=== PATIENT | female | born 1960 | race American Indian/Alaskan Native ===

== ENCOUNTER 2017-11-18 17:08 | Inpatient (IN) | payer BC ==
[2017-11-18 17:08] VITALS: BMI 20.1
--- NOTE | 2017-11-18 19:00 | C.PDOC ---
History Of Present Illness 57 year old female, whose PMHx includes pancreatitis, presents to the ED for evaluation of a swelling and discoloration to her right eye which she noted upon waking up this morning. Patient states she looked in the mirror and saw a big ecchymotic pointing lesion that was slightly draining. Patient admits to drinking, but states she does not drink every day and her last alcohol intake was yesterday. Additionally, patient states she has been feeling unwell, has not been eating much and has had loss of appetite for the past few weeks. As per her family, patient has not been eating well and has been losing a lot of weight. Patient denies fever, chills, eye pain, vision change, injury/trauma to the area, recent falls, or history of Diabetes. Time Seen by Provider: 11/18/17 18:23 Chief Complaint (Nursing): Abnormal Skin Integrity History Per: Patient History/Exam Limitations: no limitations Onset/Duration Of Symptoms: Days Current Symptoms Are (Timing): Still Present Quality Of Symptoms: Draining Additional History Per: Patient Past Medical History Reviewed: Historical Data, Nursing Documentation, Vital Signs Vital Signs: Last Vital Signs Temp 99 F 11/18/17 17:36 Pulse 102 H 11/18/17 17:36 Resp 20 11/18/17 17:36 BP 180/87 H 11/18/17 17:36 Pulse Ox 98 11/18/17 19:39 - Medical History PMH: Pancreatitis Surgical History: No Surg Hx - [facility] Procedures URETERAL CATHETERIZATION (10/08/13) Family History: States: No Known Family Hx - Social History Hx Tobacco Use: Yes Hx Alcohol Use: Yes Hx Substance Use: No - Immunization History Hx Tetanus Toxoid Vaccination: No Hx Influenza Vaccination: No Review Of Systems Constitutional: Positive for: Weight loss, Other (loss of appetite). Negative for: Fever, Chills Eyes: Positive for: Other (swelling and discoloration to right eye ). Negative for: Pain, Vision Change Physical Exam - Physical Exam Appears: Non-toxic, No Acute Distress, Other (thin appearing female ) Skin: Warm, Dry, Ecchymosis (marked, to right periorbital region) Head: Swelling (marked, to right periorbital region ) Eye(s): bilateral: PERRL, EOMI, right: Other (pointing abcess immediately below eyebrow ) Nose: Normal Oral Mucosa: Dry, Other (ketotic odor noted on breath ) Throat: Normal, No Erythema, No Exudate Neck: Supple Lymphatic: No Adenopathy Chest: Symmetrical, No Deformity, No Tenderness Cardiovascular: Rhythm Regular, No Murmur Respiratory: Normal Breath Sounds, No Rales, No Rhonchi, No Wheezing Extremity: Normal ROM, Capillary Refill (less than 2 seconds ) Neurological/Psych: Oriented x3, Normal Speech, Normal Cognition Gait: Steady ED Course And Treatment - Laboratory Results Result Diagrams: 11/18/17 19:34 11/18/17 19:34 Lab Interpretation: Abnormal (Elevated WBC with left shift, low platelet ct 98, na 127, HCO3 16, glucose 148, +serum ketones) O2 Sat by Pulse Oximetry: 98 (on RA) Pulse Ox Interpretation: Normal - CT Scan/US CT orbits with contrast Other Rad Studies (CT/US): Read By Radiologist, Radiology Report Reviewed CT/US Interpretation: Accession No. : [id number]. Patient Name / ID : ABBE AGUIRRE / [id number]. Exam Date : 11/18/2017 21:33:06 ( Approved ). Study Comment : Sex / Age : F / 57Y. Creator : Luiz Barksdale MD. Dictator : Compliance Lead : Haircutter : Luiz Barksdale MD. Approver2 : Report Date : 01/2018 22:05:00. My Comment : . [facility] Division of Radiology. [address] [place] [address]. Tel. no. . . . Patient Name: CARLA MCADAMS . Pt. Address: [address] [place] [address] Rec #: [id number]. [place] [address]: Sarah HILLS,Kathleen Freeman. Pt Order Location: [facility] : 1960 Female Age: 57 Order #: [id number]. Reason for exam: right periorbital abscess. . . . . . CT Scan. . . ORBITS/ FACIALS W/ CONT Exam Date: 11/18/17. . This imaging exam was performed at [facility]. EXAM: CT Orbits With Intravenous Contrast. . CLINICAL HISTORY: 57 years old, female; Condition or disease; Abcess; Eye and face; Right;. Additional info: Right periorbital abscess. . TECHNIQUE: Axial computed tomography images of the orbits with intravenous contrast. All CT scans at this facility use one or more dose reduction techniques, viz.: automated exposure control; ma/kV adjustment per patient size (including. targeted exams where dose is matched to indication; i.e. head); or iterative. reconstruction technique. Coronal and sagittal reformatted images were created and reviewed. . CONTRAST: 100 mL of omnipaque 300 administered intravenously. . COMPARISON: No relevant prior studies available. . FINDINGS: Orbits: Unremarkable as visualized. Sinuses: Scattered minimal mucosal thickening. No air-fluid levels. Mastoid air cells: No mastoid effusion. Thyroid: Subcentimeter calcification/ calcified nodule within right lobe. Bones/joints: Degenerative changes of cervical spine. No acute fracture. Chronic deformity medial wall of RIGHT orbit. Soft tissues: RIGHT periorbital/maxillary soft tissue swelling. 2.1 x 1.8 x. 1.6 cm soft tissue lesion along right periorbital region. Vasculature: Minimal atherosclerotic disease. Other findings: 2.6 x 1.6 x 3.2 cm subdermal fluid density lesion right. neck, incompletely imaged. Clinical correlation is needed. . IMPRESSION: 1. Probable right periorbital/ maxillary cellulitis. 2. Right periorbital lesion, nonspecific. DDX: Phlegmon , hematoma, neoplasm. Clinical correlation is needed. 3. Right neck lesion, nonspecific. DDX: Cyst, abscess, cystic neoplasm. Clinical correlation is needed. 4. Incidental/non-acute findings are described above. . Dictated By : Luiz Barksdale MD. Dictated Date/Time: 11/18/172204. Signed By: Luiz Barksdale MD. Date Signed: 11/18/172204. Transcribed By: [facility]. Transcribe Date/Time: 11/18/17 2205. ACYP02/MT Progress Note: Bloodwork, UA, CT Orbitals/Facial ordered and reviewed. Dextrose IV adminsitered. Reevaluation Time: 22:36 Reassessment Condition: Unchanged - Physician Consult Information Time Consulting Physician Contacted: 22:36 Physician Contacted: Lisseth Corbin Outcome Of Conversation: Patient to be admitted to his service for treatment of periorbital cellulitis. Disposition - Disposition Disposition: HOSPITALIZED Disposition Time: 22:37 Condition: FAIR - POA Present On Arrival: None - Clinical Impression Clinical Impression: Periorbital cellulitis of right eye - Scribe Statement The provider has reviewed the documentation as recorded by the Scribe Teodora Walker All medical record entries made by the [place] were at my direction and personally dictated by me. I have reviewed the chart and agree that the record accurately reflects my personal performance of the history, physical exam, medical decision making, and the department course for this patient. I have also personally directed, reviewed, and agree with the discharge instructions and disposition.
[2017-11-18] MEDS ORDERED: Dextrose 5%/0.9% NS 1,000 ML IV ONE (19:07)
[2017-11-18] MEDS ORDERED: Iohexol 350mg/ml 100 ML ONE (19:14)
[2017-11-18 19:39] LABS: EOS % 0.3 % (0.0-4.0); MEAN CORPUSCULAR HGB CONC 34.1 g/dL (33.0-37.0); MONO # 1.4 K/uL (0.0-0.8)
[2017-11-18 19:46] LABS: SQUAMOUS EPITHIAL 2 /hpf (0-5); URINE BACTERIA RARE (<OCC); URINE BILIRUBIN NEGATIVE (NEGATIVE); URINE BLOOD 2+ (NEGATIVE); URINE CLARITY Clear (Clear); URINE COLOR Yellow (YELLOW); URINE GLUCOSE (UA) 3+ mg/dL (Normal); URINE LEUKOCYTE ESTERASE NEG Leu/uL (Negative); URINE NITRATE NEGATIVE (NEGATIVE); URINE PROTEIN 1+ mg/dL (NEGATIVE)
[2017-11-18 19:47] LABS: BASO % 0.3 % (0.0-2.0); LYMPH % 9.1 % (20.0-40.0); MEAN CORPUSCULAR HEMOGLOBIN 34.7 pg (27.0-31.0); MONO % 12.5 % (0.0-10.0); NEUT # 8.8 K/uL (1.8-7.0); NEUT % 77.8 % (50.0-75.0); NRBC % 0.2 % (0.0-2.0); RBC 3.39 Mil/uL (3.80-5.20); RED CELL DISTRIBUTION WIDTH 17.1 % (11.5-14.5); WHITE BLOOD COUNT 11.3 K/uL (4.8-10.8)
[2017-11-18 19:48] LABS: HEMOGLOBIN 11.8 g/dL (11.0-16.0); MEAN CELL VOLUME 101.8 fL (81.0-99.0); PLATELET COUNT 98 K/uL (130-400)
[2017-11-18 19:56] LABS: ALB/GLOB RATIO 1.2 (1.0-2.1); ALBUMIN 4.1 g/dL (3.5-5.0); ALT/SGPT 85 U/L (9-52); AST/SGOT 132 U/L (14-36); BLOOD UREA NITROGEN 9 mg/dL (7-17); CALCIUM 8.1 mg/dl (8.6-10.4); GFR AFRICAN-AMERICAN > 60; GFR NON-AFRICAN AMERICAN > 60; MAGNESIUM 1.2 mg/dL (1.6-2.3)
[2017-11-18 20:35] LABS: ANISOCYTOSIS SLIGHT; BANDS 8 % (0-2); EOSINOPHIL 1 % (0-4); LYMPHOCYTE 16 % (20-40); MONOCYTE 6 % (0-10); NEUTROPHIL 69 % (50-75); PLATELET ESTIMATE NORMAL (NORMAL); TARGET CELLS SLIGHT; TOTAL CELLS COUNTED 100
--- NOTE | 2017-11-18 22:06 | CT ---
EXAM: CT Orbits With Intravenous Contrast CLINICAL HISTORY: 57 years old, female; Condition or disease; Abcess; Eye and face; Right; Additional info: Right periorbital abscess TECHNIQUE: Axial computed tomography images of the orbits with intravenous contrast. All CT scans at this facility use one or more dose reduction techniques, viz.: automated exposure control; ma/kV adjustment per patient size (including targeted exams where dose is matched to indication; i.e. head); or iterative reconstruction technique. Coronal and sagittal reformatted images were created and reviewed. CONTRAST: 100 mL of omnipaque 300 administered intravenously. COMPARISON: No relevant prior studies available. FINDINGS: Orbits: Unremarkable as visualized. Sinuses: Scattered minimal mucosal thickening. No air-fluid levels. Mastoid air cells: No mastoid effusion. Thyroid: Subcentimeter calcification/calcified nodule within right lobe. Bones/joints: Degenerative changes of cervical spine. No acute fracture. Chronic deformity medial wall of RIGHT orbit. Soft tissues: RIGHT periorbital/maxillary soft tissue swelling. 2.1 x 1.8 x 1.6 cm soft tissue lesion along right periorbital region. Vasculature: Minimal atherosclerotic disease. Other findings: 2.6 x 1.6 x 3.2 cm subdermal fluid density lesion right neck, incompletely imaged. Clinical correlation is needed. IMPRESSION: 1. Probable right periorbital/maxillary cellulitis. 2. Right periorbital lesion, nonspecific. DDX: Phlegmon, hematoma, neoplasm. Clinical correlation is needed. 3. Right neck lesion, nonspecific. DDX: Cyst, abscess, cystic neoplasm. Clinical correlation is needed. 4. Incidental/non-acute findings are described above.
[2017-11-18] MEDS ORDERED: Sodium Chloride 0.45% 1,000 ML IV SCH (23:30)
[2017-11-18] MEDS ORDERED: Sodium Chloride 0.9% 500 ML IV ONE (23:32)
[2017-11-19] MEDS: Sodium Chloride 0.9% 1,000 ML IV SCH ×5 (00:32→19:50)
[2017-11-19] MEDS: Magnesium Sulfate 1 gm in D5W 1 GM/100 ML BAG IVPB SCH ×4 (00:34→23:34)
[2017-11-19] MEDS: Piperacill/Tazo 4.5gm in Dex 4.5 GM/100 ML BAG IVPB SCH ×5 (02:08→22:53)
[2017-11-19] MEDS ORDERED: Enoxaparin 40 mg Syringe SC SCH (10:00)
[2017-11-19 12:48] LABS: ALB/GLOB RATIO 1.1 (1.0-2.1); ALBUMIN 3.2 g/dL (3.5-5.0); ALT/SGPT 83 U/L (9-52); AST/SGOT 174 U/L (14-36); BLOOD UREA NITROGEN 3 mg/dL (7-17); CALCIUM 7.7 mg/dl (8.6-10.4); GFR AFRICAN-AMERICAN > 60; GFR NON-AFRICAN AMERICAN > 60
[2017-11-19] MEDS ORDERED: Potassium Chloride 20 mEq ER Tab PO STA (13:00)
--- NOTE | 2017-11-19 13:44 | CON ---
DATE: REQUESTING PHYSICIAN: . REASON FOR CONSULTATION: Neck mass and eyelid abscess. HISTORY: This is a 57-year-old female who has had edema of the right eyelid for one day, was sudden onset, it is constant with some moderate pain. There are no visual changes. The patient also complains of a right neck mass which has been there for 38 years, is constant. Has not changed in size. There is no pain. It is moderate in size. PAST MEDICAL HISTORY: As noted in the chart by me. MEDICATIONS: As noted in the chart by me. ALLERGIES: NO KNOWN DRUG ALLERGIES. PHYSICAL EXAMINATION HEAD: Atraumatic, normocephalic. There is edema of the right lateral upper eyelid. FACE: Good facial movements bilaterally. CONSTITUTIONAL: Well fed, well nourished. COMMUNICATION: Communicates well and appropriately. EXTERNAL NOSE AND EARS: No masses. No lesions. No erythema. No edema. INTERNAL NOSE: Deviated septum. No masses. No lesions. No erythema. No edema. ORAL CAVITY AND OROPHARYNX: No masses. No lesions. No erythema. No edema. LIPS AND GUMS: No masses. No lesions. No erythema. No edema. NECK: Supple. There is a neck mass on the right level 3/5. LYMPH NODES: No lymphadenopathy of the neck. THYROID: No thyromegaly. No goiter. LABORATORY DATA: The CAT scan which was reviewed by me revealed right upper eyelid and a neck mass on the right level 3/5. The neck mass is cystic. ASSESSMENT: 1. Right neck cyst. 2. Eyelid abscess. 3. Deviated septum. PLAN: The eyelid abscess should be assessed by ophthalmology. The patient states that she has had this right neck mass for 38 years and has no interest in removing it. My recommendation is to call ophthalmology in order to address the right eyelid abscess. Blaine Sanz MD
[2017-11-19 17:15] LABS: MAGNESIUM 1.5 mg/dL (1.6-2.3)
--- NOTE | 2017-11-19 21:29 | CP.PCM.HP ---
History of Present Illness - History of Present Illness History of Present Illness: 57 year old female, whose PMHx includes pancreatitis, presents to the ED for evaluation of a swelling and discoloration to her right eye which she noted upon waking up this morning. Patient states she looked in the mirror and saw a big ecchymotic pointing lesion that was slightly draining. Patient admits to drinking, but states she does not drink every day and her last alcohol intake was yesterday. Additionally, patient states she has been feeling unwell, has not been eating much and has had loss of appetite for the past few weeks. As per her family, patient has not been eating well and has been losing a lot of weight. Patient denies fever, chills, eye pain, vision change, injury/trauma to the area, recent falls, or history of Diabetes. Present on Admission - Present on Admission Any Indicators Present on Admission: No History of DVT/PE: No History of Uncontrolled Diabetes: No Urinary Catheter: No Decubitus Ulcer Present: No Review of Systems - Review of Systems All systems: reviewed and no additional remarkable complaints except (as mentioned in HPI) Past Patient History - Past Social History Smoking Status: Light Smoker < 10 Cigarettes Daily - MUSCULOSKELETAL/RHEUMATOLOGICAL Hx Falls: No - GASTROINTESTINAL Hx Pancreatitis: Yes - PSYCHIATRIC Hx Substance Use: No - SURGICAL HISTORY Hx Surgeries: No - ANESTHESIA Hx Anesthesia: Yes Meds Allergies/Adverse Reactions: Allergies Allergy/AdvReac Type Severity Reaction Status Date / Time No Known Allergies Allergy Verified 10/08/13 21:47 Physical Exam - Head Exam Head Exam: NORMAL INSPECTION - Eye Exam Eye Exam: Normal appearance, Periorbital swelling (Right eye swelling) - ENT Exam ENT Exam: Mucous Membranes Moist Results - Vital Signs Recent Vital Signs: Last Vital Signs Temp 99.1 F 11/19/17 15:45 Pulse 95 H 11/19/17 15:45 Resp 20 11/19/17 15:45 BP 139/89 11/19/17 15:45 Pulse Ox 95 11/19/17 15:45 - Labs Result Diagrams: 11/21/17 07:20 11/24/17 07:21 Labs: Laboratory Results - last 24 hr 11/19/17 12:03 Sodium 128 L Potassium 2.8 L Chloride 93 L Carbon Dioxide 24 Anion Gap 13 BUN 3 L Creatinine 0.3 L Est GFR ( Amer) > 60 Est GFR (Non-Af Amer) > 60 Random Glucose 199 H Calcium 7.7 L Magnesium 1.5 L Total Bilirubin 3.4 H AST 174 H D ALT 83 H Alkaline Phosphatase 101 Total Protein 6.0 L Albumin 3.2 L D Globulin 2.8 Albumin/Globulin Ratio 1.1 Assessment & Plan - Assessment and Plan (Free Text) Assessment: Right eye abscess Right eye cellulitis Electrolyte imbalance History of alcohol abuse ENT evaluation Antibiotics Wound culture ID consult Supplement potassium Supplement magnesium Thiamine supplementation IV fluids DVT/GI prophylaxis
[2017-11-19] MEDS ORDERED: Vancomycin 1 gm/NS 200 ml 1 GM/200 ML BAG IVPB SCH (22:00)
[2017-11-20] MEDS: Magnesium Sulfate 1 gm in D5W 1 GM/100 ML BAG IVPB SCH (01:01)
[2017-11-20] MEDS: Vancomycin 1 gm/NS 200 ml 1 GM/200 ML BAG IVPB SCH ×2 (02:06→13:53)
[2017-11-20] MEDS: Sodium Chloride 0.9% 1,000 ML IV SCH ×3 (02:06→19:14)
[2017-11-20] MEDS: Piperacill/Tazo 4.5gm in Dex 4.5 GM/100 ML BAG IVPB SCH ×3 (04:42→16:39)
[2017-11-20 07:39] LABS: BASO % 0.7 % (0.0-2.0); EOS # 0.1 K/uL (0.0-0.7); EOS % 1.4 % (0.0-4.0); HEMOGLOBIN 10.9 g/dL (11.0-16.0); LYMPH # 1.4 K/uL (1.0-4.3); LYMPH % 20.4 % (20.0-40.0); MEAN CELL VOLUME 102.3 fL (81.0-99.0); MEAN CORPUSCULAR HEMOGLOBIN 35.9 pg (27.0-31.0); MEAN CORPUSCULAR HGB CONC 35.1 g/dL (33.0-37.0); MEAN PLATELET VOLUME 7.8 fL (7.2-11.7); MONO # 1.4 K/uL (0.0-0.8); MONO % 21.7 % (0.0-10.0); NEUT # 3.7 K/uL (1.8-7.0); NEUT % 55.8 % (50.0-75.0); NRBC % 0.2 % (0.0-2.0); RBC 3.03 Mil/uL (3.80-5.20); WHITE BLOOD COUNT 6.6 K/uL (4.8-10.8)
[2017-11-20 07:46] LABS: PLATELET COUNT 122 K/uL (130-400)
[2017-11-20 08:59] LABS: ALB/GLOB RATIO 1.1 (1.0-2.1); ALBUMIN 3.3 g/dL (3.5-5.0); ALT/SGPT 91 U/L (9-52); AST/SGOT 210 U/L (14-36); BLOOD UREA NITROGEN < 2 mg/dL (7-17); CALCIUM 7.7 mg/dl (8.6-10.4); GFR AFRICAN-AMERICAN > 60; GFR NON-AFRICAN AMERICAN > 60; MAGNESIUM 1.9 mg/dL (1.6-2.3)
[2017-11-20 09:15] LABS: BANDS 3 % (0-2); EOSINOPHIL 2 % (0-4); LYMPHOCYTE 23 % (20-40); MONOCYTE 21 % (0-10); NEUTROPHIL 51 % (50-75); PLATELET ESTIMATE SLIGHTLY DECREASED (NORMAL); TOTAL CELLS COUNTED 100
[2017-11-20 09:16] LABS: ANISOCYTOSIS SLIGHT; HYPOCHROMIC SLIGHT; POIKILOCYTOSIS SLIGHT; TARGET CELLS SLIGHT
[2017-11-20] MEDS ORDERED: Potassium Chloride 20 mEq ER Tab PO ONE ×2 (10:00→19:29)
[2017-11-20] MEDS ORDERED: Potassium Phosphate 15 MMOLE in Sodium Chloride 0.9% 250 ML IV ONE (10:00)
--- NOTE | 2017-11-20 10:42 | CP.PCM.PN ---
Subjective - Date & Time of Evaluation Date of Evaluation: 11/20/17 Time of Evaluation: 10:42 - Subjective Subjective: Patient seen and examined ENT consult appreciated Continues to have electrolyte imbalance Symptomatically better Objective - Vital Signs/Intake and Output Vital Signs (last 24 hours): Temp Pulse Resp BP Pulse Ox 98.6 F 99 H 20 145/80 98 11/20/17 08:40 11/20/17 09:54 11/20/17 09:54 11/20/17 09:54 11/20/17 09:54 Intake and Output: 11/20/17 11/20/17 06:59 18:59 Intake Total 2400 Balance 2400 - Medications Medications: Current Medications Enoxaparin Sodium (Lovenox) 40 mg SC DAILY [facility] Last Admin: 11/19/17 09:26 Dose: 40 mg Piperacillin Sod/Tazobactam Sod (Zosyn 4.5 Gm Iv Premix) 4.5 gm in 100 mls @ 200 mls/hr IVPB Q6H [facility] Last Admin: 11/20/17 04:42 Dose: 200 mls/hr Vancomycin/Sodium Chloride (Vancomycin 1 Gm/Ns 200 Ml) 1 gm in 200 mls @ 166.7 mls/hr IVPB Q12H [facility] Stop: 11/25/17 02:01 Last Admin: 11/20/17 02:06 Dose: 166.7 mls/hr Potassium Phosphate 15 mmole/ (Sodium Chloride) 255 mls @ 63 mls/hr IV ONCE ONE Stop: 11/20/17 14:02 Last Admin: 11/20/17 09:50 Dose: 63 mls/hr Sodium Chloride (Sodium Chloride 0.9%) 1,000 mls @ 100 mls/hr IV .Q10H [facility] Tramadol HCl (Ultram) 50 mg PO Q8H PRN PRN Reason: Pain, moderate (4-7) Last Admin: 11/20/17 09:32 Dose: 50 mg - Labs Labs: 11/20/17 07:16 11/20/17 07:16 - Head Exam Head Exam: NORMAL INSPECTION - Eye Exam Eye Exam: Periorbital swelling (Right eye lid swelling and abscess) - ENT Exam ENT Exam: Mucous Membranes Moist - Respiratory Exam Respiratory Exam: Clear to Ausculation Bilateral, NORMAL BREATHING PATTERN - Cardiovascular Exam Cardiovascular Exam: REGULAR RHYTHM, +S1, +S2 - GI/Abdominal Exam GI & Abdominal Exam: Soft, Normal Bowel Sounds - Extremities Exam Extremities Exam: Normal Inspection Assessment and Plan - Assessment and Plan (Free Text) Assessment: Right eye abscess Right eye cellulitis Electrolyte imbalance History of alcohol abuse ENT evaluation appreciated Ophthalmology consult Antibiotics Right eye abscess Right eye cellulitis Electrolyte imbalance History of alcohol abuse ID consult appreciated Supplement electrolytes Thiamine supplementation IV fluids DVT/GI prophylaxis
[2017-11-20 17:30] LABS: ALB/GLOB RATIO 1.1 (1.0-2.1); ALBUMIN 3.2 g/dL (3.5-5.0); ALT/SGPT 93 U/L (9-52); AST/SGOT 145 U/L (14-36); BLOOD UREA NITROGEN < 2 mg/dL (7-17); CALCIUM 7.4 mg/dl (8.6-10.4); GFR AFRICAN-AMERICAN > 60; GFR NON-AFRICAN AMERICAN > 60
--- NOTE | 2017-11-20 18:34 | CP.PCM.CON ---
History of Present Illness - History of Present Illness History of Present Illness: 57 year old female, whose PMHx includes pancreatitis, presents to the ED for evaluation of a swelling and discoloration to her right eye which she noted upon waking up this morning. ID consult requested for abscess on face near right eye - IV antibiotics started PMH- ETOH pancreatitis , lipoma right neck Review of Systems - Constitutional Constitutional: As Per HPI - EENT Eyes: As Per HPI Ears: absent: As Per HPI, Decreased Hearing, Ear Discharge, Ear Pain, Tinnitus, Abnormal Hearing, Disequilibrium, Dizziness, Other Nose/Mouth/Throat: absent: As Per HPI, Epistaxis, Nasal Congestion, Nasal Discharge, Nasal Obstruction, Nasal Trauma, Nose Pain, Post Nasal Drip, Sinus Pain, Sinus Pressure, Bleeding Gums, Change in Voice, Dental Pain, Dry Mouth, Dysphagia, Halitosis, Hoarsness, Lip Swelling, Mouth Lesions, Mouth Pain, Odynophagia, Sore Throat, Throat Swelling, Tongue Swelling, Facial Pain, Neck Pain, Neck Mass, Other - Breasts Breasts: absent: As Per HPI, Change in Shape, Mass, Pain, Nipple Discharge, Nipple Inversion, Skin Changes, Swelling, Other - Cardiovascular Cardiovascular: absent: As Per HPI, Acrocyanosis, Chest Pain, Chest Pain at Rest , Chest Pain with Activity, Claudication, Diaphoresis, Dyspnea, Dyspnea on Exertion, Edema, Irregular Heart Rhythm, Pain Radiating to Arm/Neck/Jaw, Leg Edema, Leg Ulcers, Lightheadedness, Orthopnea, Palpitations, Paroxysmal Nocturnal Dyspnea, Pedal Edema, Radiating Pain, Rapid Heart Rate, Slow Heart Rate, Syncope, Other - Respiratory Respiratory: absent: As Per HPI, Cough, Dyspnea, Hemoptysis, Dyspnea on Exertion , Wheezing, Snoring, Stridor, Pain on Inspiration, Chest Congestion, Excessive Mucous Production, Change in Mucous Color, Pain with Coughing, Other - Gastrointestinal Gastrointestinal: absent: As Per HPI, Abdominal Pain, Belching, Bloating, Change in Bowel Habits, Change in Stool Character, Coffee Ground Emesis, Constipation, Cramping, Diarrhea, Dyspepsia, Dysphagia, Early Satiety, Excessive Flatus, Fecal Incontinence, Heartburn, Hematemesis, Hematochezia, Loose Stools, Melena, Nausea, Odynophagia, Temesmus, Vomiting, Other - Genitourinary Genitourinary: absent: As Per HPI, Change in Urinary Stream, Difficulty Urinating, Dysuria, Flank Pain, Hematuria, Pyuria, Nocturia, Urinary Incontinence, Urinary Frequency, Urinary Hesitance, Urinary Urgency, Voiding Freq/Small Amts, Freq UTI, Hx Renal/Bladder Calculi, Hx /Renal Surgery, Bladder Distension, Other - Reproductive: Female Reproductive:Female: absent: As Per HPI, Amenorrhea, Amenorrhea/ Control, Currently Menstual, Cycle <21 Days, Cycle >35 Days, Cycle Variable, Menses 1-7 Days, Menses >/= 8 Days, Menses Variable, Cycle > 4 Weeks Between, No Menses for 6 Months, Heavy Menses, Light Menses, Normal Menses, Spotting Between Cycles , S/P Hysterectomy, Menopausal, Post Menopausal, Premenarche, Abnormal Vaginal Bleeding, Dysmenorrhea, Dyspareunia, Genital Lesions, Genital Pruritis, Pelvic Pain, Prolapse Symptoms, Sexual Dysfunction, Vaginal Discharge, Vaginal Dryness , Vaginal Odor, Vaginal Pruritis, Other - Menstruation Menstruation: absent: As Per HPI, Amenorrhea, Amenorrhea/ Control, Currently Menstual, Cycle <21 Days, Cycle >35 Days, Cycle Variable, Menses 1-7 Days, Menses >/= 8 Days, Menses Variable, Cycle > 4 Weeks Between, No Menses for 6 Months, Heavy Menses, Light Menses, Normal Menses, Spotting Between Cycles , S/P Hysterectomy, Menopausal, Post Menopausal, Premenarche, Abnormal Vaginal Bleeding, Dysmenorrhea, Other - Musculoskeletal Musculoskeletal: absent: As Per HPI, Abnormal Gait, Arthralgias, Atrophy, Back Pain, Deformity, Joint Swelling, Limited Range of Motion, Loss of Height, Muscle Cramps, Muscle Weakness, Myalgias, Neck Pain, Numbness, Radiating Pain into Limb, Stiffness, Tingling, Other - Integumentary Integumentary: absent: As Per HPI, Acne, Alopecia, Bleeding Lesions, Change in Hair, Change in Nails, Change in Pigmentation, Changing Lesions, Dry Skin, Erythema, Furuncle, Hirsutism, Lesions, New Lesions, Non-Healing Lesions, Photosensitivity, Pruritus, Rash, Skin Pain, Skin Ulcer, Sores, Striae, Swelling , Unusual Bruising, Wounds, Jaundice, Other - Neurological Neurological: absent: As Per HPI, Abnormal Gait, Abnormal Hearing, Abnormal Movements, Abnormal Speech, Behavioral Changes, Burning Sensations, Confusion, Convulsions, Disequilibrium, Dizziness, Numbness, Focal Weakness, Frequent Falls , Headaches, Lack of Coordination, Loss of Vision, Memory Loss, Paresthesias, Radicular Pain, Restless Legs, Sensory Deficit, Syncope, Tingling, Tremor, Vertigo, Weakness, Other Visual Disturbances, Other - Psychiatric Psychiatric: absent: As Per HPI, Abnormal Sleep Pattern, Anhedonia, Anxiety, Auditory Hallucinations, Behavioral Changes, Change in Appetite, Change in Libido, Confusion, Depression, Difficulty Concentrating, Hallucinations, Homicidal Ideation, Hopelessness, Irritability, Memory Loss, Mood Swings, Panic Attacks, Paranoia, Suicidal Ideation, Visual Hallucinations, Tactile Hallucinations, Other - Endocrine Endocrine: absent: As Per HPI, Change in Body Appearance, Change in Libido, Cold Intolorance, Deepening of Voice, Excessive Sweating, Fatigue, Flushing, Heat Intolorance, Increase in Ring/Shoe/Hat Size, Palpitations, Polydipsia, Polyphagia, Polyuria, Other - Hematologic/Lymphatic Hematologic: absent: As Per HPI, Easy Bleeding, Easy Bruising, Lymphadenopathy, Other Past Patient History - Past Social History Smoking Status: Light Smoker < 10 Cigarettes Daily - MUSCULOSKELETAL/RHEUMATOLOGICAL Hx Falls: No - GASTROINTESTINAL Hx Pancreatitis: Yes - PSYCHIATRIC Hx Substance Use: No - SURGICAL HISTORY Hx Surgeries: No - ANESTHESIA Hx Anesthesia: Yes Meds Allergies/Adverse Reactions: Allergies Allergy/AdvReac Type Severity Reaction Status Date / Time No Known Allergies Allergy Verified 10/08/13 21:47 - Medications Medications: Current Medications Enoxaparin Sodium (Lovenox) 40 mg SC DAILY [facility] Last Admin: 11/19/17 09:26 Dose: 40 mg Piperacillin Sod/Tazobactam Sod (Zosyn 4.5 Gm Iv Premix) 4.5 gm in 100 mls @ 200 mls/hr IVPB Q6H [facility] Last Admin: 11/20/17 16:39 Dose: 200 mls/hr Vancomycin/Sodium Chloride (Vancomycin 1 Gm/Ns 200 Ml) 1 gm in 200 mls @ 166.7 mls/hr IVPB Q12H [facility] Stop: 11/25/17 02:01 Last Admin: 11/20/17 13:53 Dose: 166.7 mls/hr Sodium Chloride (Sodium Chloride 0.9%) 1,000 mls @ 100 mls/hr IV .Q10H [facility] Last Admin: 11/20/17 16:38 Dose: 100 mls/hr Tramadol HCl (Ultram) 50 mg PO Q8H PRN PRN Reason: Pain, moderate (4-7) Last Admin: 11/20/17 09:32 Dose: 50 mg Physical Exam - Constitutional Appears: Non-toxic, Cachectic, Chronically Ill - Head Exam Head Exam: ATRAUMATIC, NORMOCEPHALIC. absent: NORMAL INSPECTION - Eye Exam Eye Exam: EOMI, Periorbital swelling, Periorbital tenderness, PERRL. absent: Conjunctival injection, Scleral icterus Pupil Exam: NORMAL ACCOMODATION - ENT Exam ENT Exam: Mucous Membranes Dry, Normal External Ear Exam Additional comments: mass right neck- lipoma - Neck Exam Neck exam: Negative for: Lymphadenopathy, Thyromegaly - Respiratory Exam Respiratory Exam: Decreased Breath Sounds, Clear to Auscultation Bilateral - Cardiovascular Exam Cardiovascular Exam: REGULAR RHYTHM, +S1, +S2 - GI/Abdominal Exam GI & Abdominal Exam: Diminished Bowel Sounds, Soft. absent: Tenderness - Rectal Exam Rectal Exam: Deferred - Exam Exam: NORMAL INSPECTION - Extremities Exam Extremities exam: Positive for: pedal pulses present. Negative for: calf tenderness, pedal edema, tenderness - Back Exam Back exam: absent: CVA tenderness (L), CVA tenderness (R), paraspinal tenderness - Neurological Exam Neurological exam: Alert, CN II-XII Intact, Oriented x3, Reflexes Normal - Psychiatric Exam Psychiatric exam: Depressed - Skin Skin Exam: Dry Results - Vital Signs Recent Vital Signs: Last Vital Signs Temp 98.1 F 11/20/17 15:45 Pulse 78 11/20/17 15:45 Resp 20 11/20/17 15:45 BP 147/77 11/20/17 15:45 Pulse Ox 96 11/20/17 15:45 - Labs Result Diagrams: 11/20/17 07:16 11/20/17 17:05 Labs: Laboratory Results - last 24 hr 11/20/17 11/20/17 11/20/17 07:16 07:16 17:05 WBC 6.6 RBC 3.03 L Hgb 10.9 L Hct 31.0 L MCV 102.3 H MCH 35.9 H MCHC 35.1 RDW 17.0 H Plt Count 122 L D MPV 7.8 Neut % (Auto) 55.8 Lymph % (Auto) 20.4 Dolores % (Auto) 21.7 H Eos % (Auto) 1.4 Baso % (Auto) 0.7 Neut # 3.7 Lymph # 1.4 Dolores # 1.4 H Eos # 0.1 Baso # 0.0 Neutrophils % (Manual) 51 Band Neutrophils % 3 H Lymphocytes % (Manual) 23 Monocytes % (Manual) 21 H Eosinophils % (Manual) 2 Platelet Estimate Slightly decreased L Hypochromasia (manual) Slight Poikilocytosis (manual Slight Anisocytosis (manual) Slight Target Cells Slight Sodium 129 L 129 L Potassium 3.0 L 3.3 L Chloride 101 101 Carbon Dioxide 21 L 23 Anion Gap 9 L 9 L BUN < 2 L < 2 L Creatinine 0.3 L 0.3 L Est GFR ( Amer) > 60 > 60 Est GFR (Non-Af Amer) > 60 > 60 Random Glucose 138 H 140 H Calcium 7.7 L 7.4 L Phosphorus 0.8 L* 1.3 L Magnesium 1.9 Total Bilirubin 2.6 H 2.0 H AST 210 H D 145 H D ALT 91 H 93 H Alkaline Phosphatase 94 85 Total Protein 6.4 6.2 L Albumin 3.3 L 3.2 L Globulin 3.1 3.0 Albumin/Globulin Ratio 1.1 1.1 Assessment & Plan (1) Periorbital cellulitis of right eye Status: Acute - Assessment and Plan (Free Text) Assessment: abscess right forehead will likeluy need to be drained cont empiric iv rx and wound care
[2017-11-20] MEDS ORDERED: Potassium Phosphate 15 MMOLE in Sodium Chloride 0.9% 250 ML IVPB ONE (19:28)
[2017-11-21] MEDS: Piperacill/Tazo 4.5gm in Dex 4.5 GM/100 ML BAG IVPB SCH ×4 (01:34→19:40)
[2017-11-21] MEDS: Vancomycin 1 gm/NS 200 ml 1 GM/200 ML BAG IVPB SCH ×2 (02:43→14:48)
[2017-11-21 07:33] LABS: BASO # 0.1 K/uL (0.0-0.2); EOS # 0.1 K/uL (0.0-0.7); HEMOGLOBIN 10.2 g/dL (11.0-16.0); LYMPH # 1.9 K/uL (1.0-4.3); MEAN CORPUSCULAR HEMOGLOBIN 36.1 pg (27.0-31.0); PLATELET COUNT 142 K/uL (130-400); RBC 2.82 Mil/uL (3.80-5.20)
[2017-11-21 07:47] LABS: BASO % 1.1 % (0.0-2.0); EOS % 1.6 % (0.0-4.0); LYMPH % 30.5 % (20.0-40.0); MEAN CORPUSCULAR HGB CONC 35.1 g/dL (33.0-37.0); MEAN PLATELET VOLUME 7.4 fL (7.2-11.7); MONO # 1.7 K/uL (0.0-0.8); MONO % 26.2 % (0.0-10.0); NEUT # 2.6 K/uL (1.8-7.0); NEUT % 40.6 % (50.0-75.0); NRBC % 0.2 % (0.0-2.0); RED CELL DISTRIBUTION WIDTH 16.5 % (11.5-14.5); WHITE BLOOD COUNT 6.4 K/uL (4.8-10.8)
[2017-11-21 08:05] LABS: ALT/SGPT 74 U/L (9-52); AST/SGOT 87 U/L (14-36); BLOOD UREA NITROGEN < 2 mg/dL (7-17); CALCIUM 7.5 mg/dl (8.6-10.4); GFR AFRICAN-AMERICAN > 60; GFR NON-AFRICAN AMERICAN > 60; MAGNESIUM 1.3 mg/dL (1.6-2.3)
[2017-11-21 09:40] LABS: BANDS 2 % (0-2); EOSINOPHIL 3 % (0-4); LYMPHOCYTE 22 % (20-40); MONOCYTE 22 % (0-10); NEUTROPHIL 49 % (50-75); NUCLEATED RED BLOOD CELL 1 % (0-0); REACTIVE LYMPHOCYTES 2 % (0-0); TOTAL CELLS COUNTED 100
[2017-11-21 09:41] LABS: ANISOCYTOSIS SLIGHT; PLATELET ESTIMATE NORMAL (NORMAL)
[2017-11-21] MEDS: Magnesium Sulfate 1 gm in D5W 1 GM/100 ML BAG IVPB SCH ×2 (12:08→14:43)
[2017-11-21] MEDS: Potassium Phosphate 15 MMOLE in Sodium Chloride 0.9% 250 ML IVPB ONE ×2 (13:48→16:54)
[2017-11-21] MEDS ORDERED: Magnesium Sulfate 1 gm in D5W 1 GM/100 ML BAG IVPB SCH (14:00)
--- NOTE | 2017-11-21 14:55 | CP.PCM.PN ---
Subjective - Date & Time of Evaluation Date of Evaluation: 11/21/17 Time of Evaluation: 14:55 - Subjective Subjective: Patient seen and examined No events overnight Objective - Vital Signs/Intake and Output Vital Signs (last 24 hours): Temp Pulse Resp BP Pulse Ox 97.8 F 87 20 145/70 98 11/21/17 08:45 11/21/17 11:18 11/21/17 08:45 11/21/17 14:00 11/21/17 08:45 Intake and Output: 11/21/17 11/21/17 06:59 18:59 Intake Total 1400 Balance 1400 - Medications Medications: Current Medications Enoxaparin Sodium (Lovenox) 40 mg SC DAILY [facility] Last Admin: 11/19/17 09:26 Dose: 40 mg Piperacillin Sod/Tazobactam Sod (Zosyn 4.5 Gm Iv Premix) 4.5 gm in 100 mls @ 200 mls/hr IVPB Q6H [facility] Last Admin: 11/21/17 12:16 Dose: 200 mls/hr Vancomycin/Sodium Chloride (Vancomycin 1 Gm/Ns 200 Ml) 1 gm in 200 mls @ 166.7 mls/hr IVPB Q12H [facility] Stop: 11/25/17 02:01 Last Admin: 11/21/17 14:48 Dose: 166.7 mls/hr Sodium Chloride (Sodium Chloride 0.9%) 1,000 mls @ 100 mls/hr IV .Q10H [facility] Last Admin: 11/20/17 19:14 Dose: Not Given Potassium Phosphate 15 mmole/ (Sodium Chloride) 255 mls @ 42.5 mls/hr IVPB ONCE ONE Stop: 11/21/17 17:59 Last Admin: 11/21/17 13:48 Dose: 42.5 mls/hr Magnesium Sulfate/Dextrose (Magnesium Sulfate 1 Gm/100 Ml D5w) 1 gm in 100 mls @ 100 mls/hr IVPB Q1H [facility] Stop: 11/21/17 14:59 Magnesium Oxide (Mag-Ox) 400 mg PO DAILY [facility] Stop: 11/24/17 10:01 Potassium Phos/Sodium Phos (Neutra-Phos) 1 pkt PO DAILY [facility] Stop: 11/24/17 10:01 Thiamine HCl (Vitamin B1 Tab) 100 mg PO DAILY [facility] Last Admin: 01/06/18 12:15 Dose: 100 mg Tramadol HCl (Ultram) 50 mg PO Q8H PRN PRN Reason: Pain, moderate (4-7) Last Admin: 11/21/17 12:13 Dose: 50 mg - Labs Labs: 11/21/17 07:20 11/21/17 07:20 - Head Exam Head Exam: NORMAL INSPECTION - Eye Exam Eye Exam: Normal appearance, Periorbital swelling (Right eyelid swelling) - ENT Exam ENT Exam: Mucous Membranes Moist - Respiratory Exam Respiratory Exam: Clear to Ausculation Bilateral - Cardiovascular Exam Cardiovascular Exam: REGULAR RHYTHM, +S1, +S2 - GI/Abdominal Exam GI & Abdominal Exam: Soft, Normal Bowel Sounds - Extremities Exam Extremities Exam: Normal Inspection Assessment and Plan - Assessment and Plan (Free Text) Assessment: Right eye abscess Right eye cellulitis Electrolyte imbalance History of alcohol abuse Awaiting ophthalmology consult Antibiotics Supplement potassium Supplement magnesium Thiamine supplementation IV fluids DVT/GI prophylaxis
[2017-11-21] MEDS ORDERED: Potassium Chloride 20 mEq ER Tab PO ONE (19:28)
[2017-11-22] MEDS: Vancomycin 1 gm/NS 200 ml 1 GM/200 ML BAG IVPB SCH ×2 (02:03→14:38)
[2017-11-22] MEDS: Sodium Chloride 0.9% 1,000 ML IV SCH ×3 (04:55→22:50)
[2017-11-22] MEDS: Piperacill/Tazo 4.5gm in Dex 4.5 GM/100 ML BAG IVPB SCH ×5 (05:12→22:49)
[2017-11-22 09:07] LABS: BLOOD UREA NITROGEN 4 mg/dL (7-17); GFR AFRICAN-AMERICAN > 60; GFR NON-AFRICAN AMERICAN > 60; MAGNESIUM 1.4 mg/dL (1.6-2.3)
[2017-11-22] MEDS: Magnesium Oxide 400 mg Tab UD PO SCH (10:02)
[2017-11-22] MEDS: Potassium & Sodium Phosphate PO SCH (10:05)
--- NOTE | 2017-11-22 17:33 | CP.PCM.PN ---
Subjective - Date & Time of Evaluation Date of Evaluation: 11/22/17 Time of Evaluation: 09:00 - Subjective Subjective: improving slowly Objective - Vital Signs/Intake and Output Vital Signs (last 24 hours): Temp Pulse Resp BP Pulse Ox 99.1 F 77 20 152/83 H 98 11/22/17 15:00 11/22/17 15:00 11/22/17 15:00 11/22/17 15:00 11/22/17 15:00 - Medications Medications: Current Medications Enoxaparin Sodium (Lovenox) 40 mg SC DAILY [facility] Last Admin: 11/19/17 09:26 Dose: 40 mg Piperacillin Sod/Tazobactam Sod (Zosyn 4.5 Gm Iv Premix) 4.5 gm in 100 mls @ 200 mls/hr IVPB Q6H [facility] Last Admin: 11/22/17 16:51 Dose: 200 mls/hr Vancomycin/Sodium Chloride (Vancomycin 1 Gm/Ns 200 Ml) 1 gm in 200 mls @ 166.7 mls/hr IVPB Q12H [facility] Stop: 11/25/17 02:01 Last Admin: 11/22/17 14:38 Dose: 166.7 mls/hr Sodium Chloride (Sodium Chloride 0.9%) 1,000 mls @ 100 mls/hr IV .Q10H [facility] Last Admin: 11/22/17 12:05 Dose: Not Given Magnesium Oxide (Mag-Ox) 400 mg PO DAILY [facility] Stop: 11/24/17 10:01 Last Admin: 11/22/17 10:02 Dose: 400 mg Potassium Phos/Sodium Phos (Neutra-Phos) 1 pkt PO DAILY [facility] Stop: 11/24/17 10:01 Last Admin: 11/22/17 10:05 Dose: 1 pkt Thiamine HCl (Vitamin B1 Tab) 100 mg PO DAILY [facility] Last Admin: 11/22/17 10:04 Dose: 100 mg Tramadol HCl (Ultram) 50 mg PO Q8H PRN PRN Reason: Pain, moderate (4-7) Last Admin: 11/22/17 17:11 Dose: 50 mg - Labs Labs: 11/21/17 07:20 11/22/17 08:37 - Constitutional Appears: Non-toxic, Chronically Ill - Head Exam Head Exam: NORMOCEPHALIC - Eye Exam Eye Exam: PERRL - ENT Exam ENT Exam: Mucous Membranes Dry - Neck Exam Neck Exam: absent: Lymphadenopathy - Respiratory Exam Respiratory Exam: Decreased Breath Sounds - Cardiovascular Exam Cardiovascular Exam: REGULAR RHYTHM - GI/Abdominal Exam GI & Abdominal Exam: Distended, Soft - Rectal Exam Rectal Exam: Deferred - Exam Exam: NORMAL INSPECTION - Extremities Exam Extremities Exam: absent: Pedal Edema - Back Exam Back Exam: absent: CVA tenderness (L), CVA tenderness (R) - Neurological Exam Neurological Exam: Alert, Awake, Oriented x3 Assessment and Plan (1) Periorbital cellulitis of right eye Status: Acute - Assessment and Plan (Free Text) Assessment: swelling and redness better cont iv rx and wound care
[2017-11-22] MEDS: Neomycin-Polymyxin-Gramicidin Ophth Soln (10 ml) OP SCH (18:51)
--- NOTE | 2017-11-22 20:12 | CP.PCM.PN ---
Subjective - Date & Time of Evaluation Date of Evaluation: 11/22/17 Time of Evaluation: 20:12 - Subjective Subjective: Patient seen and examined No events overnight Objective - Vital Signs/Intake and Output Vital Signs (last 24 hours): Temp Pulse Resp BP Pulse Ox 99.1 F 77 20 152/83 H 98 11/22/17 15:00 11/22/17 15:00 11/22/17 15:00 11/22/17 15:00 11/22/17 15:00 - Medications Medications: Current Medications Enoxaparin Sodium (Lovenox) 40 mg SC DAILY [facility] Last Admin: 11/19/17 09:26 Dose: 40 mg Piperacillin Sod/Tazobactam Sod (Zosyn 4.5 Gm Iv Premix) 4.5 gm in 100 mls @ 200 mls/hr IVPB Q6H [facility] Last Admin: 11/22/17 16:51 Dose: 200 mls/hr Vancomycin/Sodium Chloride (Vancomycin 1 Gm/Ns 200 Ml) 1 gm in 200 mls @ 166.7 mls/hr IVPB Q12H [facility] Stop: 11/25/17 02:01 Last Admin: 11/22/17 14:38 Dose: 166.7 mls/hr Sodium Chloride (Sodium Chloride 0.9%) 1,000 mls @ 100 mls/hr IV .Q10H [facility] Last Admin: 11/22/17 12:05 Dose: Not Given Magnesium Oxide (Mag-Ox) 400 mg PO DAILY [facility] Stop: 11/24/17 10:01 Last Admin: 11/22/17 10:02 Dose: 400 mg Neomycin/Polymyxin/Gramicidin (Gramicidin/Neomycin/Polymyxin B) 0.01 ml OP TID [facility] Last Admin: 11/22/17 18:51 Dose: 1 drop Potassium Phos/Sodium Phos (Neutra-Phos) 1 pkt PO DAILY [facility] Stop: 11/24/17 10:01 Last Admin: 11/22/17 10:05 Dose: 1 pkt Thiamine HCl (Vitamin B1 Tab) 100 mg PO DAILY [facility] Last Admin: 11/22/17 10:04 Dose: 100 mg Tramadol HCl (Ultram) 50 mg PO Q8H PRN PRN Reason: Pain, moderate (4-7) Last Admin: 11/22/17 17:11 Dose: 50 mg - Labs Labs: 11/21/17 07:20 11/22/17 08:37 - Head Exam Head Exam: NORMAL INSPECTION - Eye Exam Eye Exam: Normal appearance - ENT Exam ENT Exam: Mucous Membranes Moist - Respiratory Exam Respiratory Exam: Clear to Ausculation Bilateral - Cardiovascular Exam Cardiovascular Exam: REGULAR RHYTHM, +S1, +S2 - GI/Abdominal Exam GI & Abdominal Exam: Soft, Normal Bowel Sounds Assessment and Plan - Assessment and Plan (Free Text) Assessment: Right eye abscess Right eye cellulitis Electrolyte imbalance History of alcohol abuse Awaiting ophthalmology consult Antibiotics Monitor electrolytes Thiamine IV fluids DVT/GI prophylaxis
[2017-11-23] MEDS: Vancomycin 1 gm/NS 200 ml 1 GM/200 ML BAG IVPB SCH ×2 (01:11→14:12)
[2017-11-23] MEDS: Piperacill/Tazo 4.5gm in Dex 4.5 GM/100 ML BAG IVPB SCH ×4 (05:22→23:05)
[2017-11-23 09:34] LABS: BLOOD UREA NITROGEN 3 mg/dL (7-17); CALCIUM 7.7 mg/dl (8.6-10.4); GFR AFRICAN-AMERICAN > 60; GFR NON-AFRICAN AMERICAN > 60; MAGNESIUM 1.2 mg/dL (1.6-2.3)
[2017-11-23] MEDS: Neomycin-Polymyxin-Gramicidin Ophth Soln (10 ml) OP SCH ×3 (10:49→18:47)
[2017-11-23] MEDS: Magnesium Oxide 400 mg Tab UD PO SCH (10:49)
[2017-11-23] MEDS: Potassium & Sodium Phosphate PO SCH (10:49)
--- NOTE | 2017-11-23 10:57 | CP.PCM.PN ---
Subjective - Date & Time of Evaluation Date of Evaluation: 11/23/17 Time of Evaluation: 07:00 - Subjective Subjective: iv rx in progress Objective - Vital Signs/Intake and Output Vital Signs (last 24 hours): Temp Pulse Resp BP Pulse Ox 98.4 F 75 20 152/84 H 97 11/23/17 07:55 11/23/17 07:55 11/23/17 07:55 11/23/17 07:55 11/23/17 07:55 - Medications Medications: Current Medications Enoxaparin Sodium (Lovenox) 40 mg SC DAILY [facility] Last Admin: 11/19/17 09:26 Dose: 40 mg Piperacillin Sod/Tazobactam Sod (Zosyn 4.5 Gm Iv Premix) 4.5 gm in 100 mls @ 200 mls/hr IVPB Q6H [facility] Last Admin: 11/23/17 05:22 Dose: 200 mls/hr Vancomycin/Sodium Chloride (Vancomycin 1 Gm/Ns 200 Ml) 1 gm in 200 mls @ 166.7 mls/hr IVPB Q12H [facility] Stop: 11/25/17 02:01 Last Admin: 11/23/17 01:11 Dose: 166.7 mls/hr Magnesium Oxide (Mag-Ox) 400 mg PO DAILY [facility] Stop: 11/24/17 10:01 Last Admin: 11/23/17 10:49 Dose: 400 mg Neomycin/Polymyxin/Gramicidin (Gramicidin/Neomycin/Polymyxin B) 0.01 ml OP TID [facility] Last Admin: 11/23/17 10:49 Dose: 1 drop Potassium Phos/Sodium Phos (Neutra-Phos) 1 pkt PO DAILY [facility] Stop: 11/24/17 10:01 Last Admin: 11/23/17 10:49 Dose: 1 pkt Thiamine HCl (Vitamin B1 Tab) 100 mg PO DAILY [facility] Last Admin: 11/23/17 10:49 Dose: 100 mg Tramadol HCl (Ultram) 50 mg PO Q8H PRN PRN Reason: Pain, moderate (4-7) Last Admin: 11/23/17 05:23 Dose: 50 mg - Labs Labs: 11/21/17 07:20 11/23/17 08:44 - Constitutional Appears: Non-toxic, Cachectic - Head Exam Head Exam: NORMOCEPHALIC Additional comments: swelling right forehead less - Eye Exam Eye Exam: PERRL - ENT Exam ENT Exam: Mucous Membranes Dry - Neck Exam Neck Exam: absent: Lymphadenopathy - Respiratory Exam Respiratory Exam: Decreased Breath Sounds - Cardiovascular Exam Cardiovascular Exam: REGULAR RHYTHM - GI/Abdominal Exam GI & Abdominal Exam: Distended - Rectal Exam Rectal Exam: Deferred Assessment and Plan (1) Periorbital cellulitis of right eye Status: Acute - Assessment and Plan (Free Text) Assessment: cont rx / wound care
[2017-11-23] MEDS: Sodium Chloride 0.9% 1,000 ML IV SCH ×2 (14:33→14:35)
--- NOTE | 2017-11-23 19:10 | CP.PCM.PN ---
Subjective - Date & Time of Evaluation Date of Evaluation: 11/23/17 Time of Evaluation: 19:10 - Subjective Subjective: Patient seen and examined Feels better and has no complete Objective - Vital Signs/Intake and Output Vital Signs (last 24 hours): Temp Pulse Resp BP Pulse Ox 98.6 F 73 20 151/81 H 98 11/23/17 15:59 11/23/17 15:59 11/23/17 15:59 11/23/17 15:59 11/23/17 15:59 - Medications Medications: Current Medications Enoxaparin Sodium (Lovenox) 40 mg SC DAILY [facility] Last Admin: 11/19/17 09:26 Dose: 40 mg Piperacillin Sod/Tazobactam Sod (Zosyn 4.5 Gm Iv Premix) 4.5 gm in 100 mls @ 200 mls/hr IVPB Q6H [facility] Last Admin: 11/23/17 18:30 Dose: 200 mls/hr Vancomycin/Sodium Chloride (Vancomycin 1 Gm/Ns 200 Ml) 1 gm in 200 mls @ 166.7 mls/hr IVPB Q12H [facility] Stop: 11/25/17 02:01 Last Admin: 11/23/17 14:12 Dose: 166.7 mls/hr Magnesium Oxide (Mag-Ox) 400 mg PO DAILY [facility] Stop: 11/24/17 10:01 Last Admin: 11/23/17 10:49 Dose: 400 mg Neomycin/Polymyxin/Gramicidin (Gramicidin/Neomycin/Polymyxin B) 0.01 ml OP TID [facility] Last Admin: 11/23/17 18:47 Dose: 1 drop Potassium Phos/Sodium Phos (Neutra-Phos) 1 pkt PO DAILY [facility] Stop: 11/24/17 10:01 Last Admin: 11/23/17 10:49 Dose: 1 pkt Thiamine HCl (Vitamin B1 Tab) 100 mg PO DAILY [facility] Last Admin: 11/23/17 10:49 Dose: 100 mg Tramadol HCl (Ultram) 50 mg PO Q8H PRN PRN Reason: Pain, moderate (4-7) Last Admin: 11/23/17 18:53 Dose: 50 mg - Labs Labs: 11/21/17 07:20 11/23/17 08:44 - Head Exam Head Exam: NORMAL INSPECTION - Eye Exam Eye Exam: Periorbital swelling (Right eyelid swelling) - ENT Exam ENT Exam: Mucous Membranes Moist - Respiratory Exam Respiratory Exam: Clear to Ausculation Bilateral - Cardiovascular Exam Cardiovascular Exam: REGULAR RHYTHM, +S1, +S2 - GI/Abdominal Exam GI & Abdominal Exam: Soft, Normal Bowel Sounds - Extremities Exam Extremities Exam: Normal Inspection Assessment and Plan - Assessment and Plan (Free Text) Assessment: Right eye abscess Right eye cellulitis Electrolyte imbalance History of alcohol abuse Patient is seen by ophthalmology, consult pending Start to have right eyelid cyst Recommended to follow-up as outpatient No drainage needed at present time Antibiotics Thiamine Continue supportive care DVT/GI prophylaxis
[2017-11-24] MEDS: Vancomycin 1 gm/NS 200 ml 1 GM/200 ML BAG IVPB SCH ×2 (03:00→14:06)
[2017-11-24] MEDS: Piperacill/Tazo 4.5gm in Dex 4.5 GM/100 ML BAG IVPB SCH ×4 (05:17→22:39)
[2017-11-24 08:18] LABS: BLOOD UREA NITROGEN 3 mg/dL (7-17); GFR AFRICAN-AMERICAN > 60; GFR NON-AFRICAN AMERICAN > 60; MAGNESIUM 1.2 mg/dL (1.6-2.3)
[2017-11-24] MEDS: Magnesium Oxide 400 mg Tab UD PO SCH (09:15)
[2017-11-24] MEDS: Potassium & Sodium Phosphate PO SCH (09:16)
[2017-11-24] MEDS: Neomycin-Polymyxin-Gramicidin Ophth Soln (10 ml) OP SCH ×3 (09:16→17:19)
--- NOTE | 2017-11-24 11:08 | CP.PCM.PN ---
Subjective - Date & Time of Evaluation Date of Evaluation: 11/24/17 Time of Evaluation: 08:00 - Subjective Subjective: swelling and redness persist consider drainage cont IV rx for now Objective - Vital Signs/Intake and Output Vital Signs (last 24 hours): Temp Pulse Resp BP Pulse Ox 98.3 F 70 20 161/78 H 96 11/24/17 08:37 11/24/17 08:37 11/24/17 08:37 11/24/17 08:37 11/24/17 08:37 Intake and Output: 11/24/17 11/24/17 06:59 18:59 Intake Total 1300 850 Balance 1300 850 - Medications Medications: Current Medications Enoxaparin Sodium (Lovenox) 40 mg SC DAILY [facility] Last Admin: 11/19/17 09:26 Dose: 40 mg Piperacillin Sod/Tazobactam Sod (Zosyn 4.5 Gm Iv Premix) 4.5 gm in 100 mls @ 200 mls/hr IVPB Q6H [facility] Last Admin: 11/24/17 05:17 Dose: 200 mls/hr Vancomycin/Sodium Chloride (Vancomycin 1 Gm/Ns 200 Ml) 1 gm in 200 mls @ 166.7 mls/hr IVPB Q12H [facility] Stop: 11/25/17 02:01 Last Admin: 11/24/17 03:00 Dose: 166.7 mls/hr Neomycin/Polymyxin/Gramicidin (Gramicidin/Neomycin/Polymyxin B) 0.01 ml OP TID [facility] Last Admin: 11/24/17 09:16 Dose: 1 drop Thiamine HCl (Vitamin B1 Tab) 100 mg PO DAILY [facility] Last Admin: 11/24/17 09:16 Dose: 100 mg Tramadol HCl (Ultram) 50 mg PO Q8H PRN PRN Reason: Pain, moderate (4-7) Last Admin: 11/24/17 05:14 Dose: 50 mg - Labs Labs: 11/21/17 07:20 11/24/17 07:21 - Constitutional Appears: Non-toxic - Head Exam Head Exam: NORMOCEPHALIC - Eye Exam Eye Exam: PERRL - ENT Exam ENT Exam: Mucous Membranes Dry - Neck Exam Neck Exam: absent: Lymphadenopathy - Respiratory Exam Respiratory Exam: Decreased Breath Sounds - Cardiovascular Exam Cardiovascular Exam: REGULAR RHYTHM - GI/Abdominal Exam GI & Abdominal Exam: Distended, Soft - Rectal Exam Rectal Exam: Deferred - Exam Exam: NORMAL INSPECTION Assessment and Plan (1) Periorbital cellulitis of right eye Status: Acute - Assessment and Plan (Free Text) Plan: cont iv rx
--- NOTE | 2017-11-24 13:33 | CP.PCM.PN ---
Subjective - Date & Time of Evaluation Date of Evaluation: 11/24/17 Time of Evaluation: 13:33 - Subjective Subjective: Patient seen and examined No events overnight Objective - Vital Signs/Intake and Output Vital Signs (last 24 hours): Temp Pulse Resp BP Pulse Ox 98.3 F 70 20 161/78 H 96 11/24/17 08:37 11/24/17 08:37 11/24/17 08:37 11/24/17 08:37 11/24/17 08:37 Intake and Output: 11/24/17 11/24/17 06:59 18:59 Intake Total 1300 850 Balance 1300 850 - Medications Medications: Current Medications Enoxaparin Sodium (Lovenox) 40 mg SC DAILY [facility] Last Admin: 11/19/17 09:26 Dose: 40 mg Piperacillin Sod/Tazobactam Sod (Zosyn 4.5 Gm Iv Premix) 4.5 gm in 100 mls @ 200 mls/hr IVPB Q6H [facility] Last Admin: 11/24/17 12:05 Dose: 200 mls/hr Vancomycin/Sodium Chloride (Vancomycin 1 Gm/Ns 200 Ml) 1 gm in 200 mls @ 166.7 mls/hr IVPB Q12H [facility] Stop: 11/25/17 02:01 Last Admin: 11/24/17 03:00 Dose: 166.7 mls/hr Neomycin/Polymyxin/Gramicidin (Gramicidin/Neomycin/Polymyxin B) 0.01 ml OP TID [facility] Last Admin: 11/24/17 09:16 Dose: 1 drop Thiamine HCl (Vitamin B1 Tab) 100 mg PO DAILY [facility] Last Admin: 11/24/17 09:16 Dose: 100 mg Tramadol HCl (Ultram) 50 mg PO Q8H PRN PRN Reason: Pain, moderate (4-7) Last Admin: 11/24/17 05:14 Dose: 50 mg - Labs Labs: 11/21/17 07:20 11/24/17 07:21 - Head Exam Head Exam: NORMAL INSPECTION - Eye Exam Eye Exam: Periorbital swelling (Right eyelid and periorbital swelling) - ENT Exam ENT Exam: Mucous Membranes Moist - Respiratory Exam Respiratory Exam: Clear to Ausculation Bilateral - Cardiovascular Exam Cardiovascular Exam: REGULAR RHYTHM, +S1, +S2 - GI/Abdominal Exam GI & Abdominal Exam: Soft, Normal Bowel Sounds - Extremities Exam Extremities Exam: Normal Inspection Assessment and Plan - Assessment and Plan (Free Text) Assessment: Right eye abscess Right eye cellulitis Electrolyte imbalance History of alcohol abuse Patient is seen by ophthalmology, consult pending Start to have right eyelid cyst Recommended to follow-up as outpatient No drainage needed at present time Antibiotics Thiamine Continue supportive care DVT/GI prophylaxis
[2017-11-25] MEDS: Vancomycin 1 gm/NS 200 ml 1 GM/200 ML BAG IVPB SCH (03:00)
[2017-11-25 08:13] VITALS: RESP 20
[2017-11-25] MEDS: Neomycin-Polymyxin-Gramicidin Ophth Soln (10 ml) OP SCH ×2 (10:48→13:55)
[2017-11-25 15:50] VITALS: BP 164/82; PULSE 64; TEMP 97.7; O2SAT 97
--- NOTE | 2017-11-25 16:33 | CP.PCM.PN ---
Subjective - Date & Time of Evaluation Date of Evaluation: 11/25/17 Time of Evaluation: 08:00 - Subjective Subjective: less pain and swelling no fever Objective - Vital Signs/Intake and Output Vital Signs (last 24 hours): Temp Pulse Resp BP Pulse Ox 97.7 F 64 20 164/82 H 97 11/25/17 15:49 11/25/17 15:49 11/25/17 15:49 11/25/17 15:49 11/25/17 15:49 Intake and Output: 11/25/17 11/25/17 06:59 18:59 Intake Total 650 Balance 650 - Medications Medications: Current Medications Enoxaparin Sodium (Lovenox) 40 mg SC DAILY [facility] Last Admin: 11/19/17 09:26 Dose: 40 mg Neomycin/Polymyxin/Gramicidin (Gramicidin/Neomycin/Polymyxin B) 0.01 ml OP TID [facility] Last Admin: 11/25/17 13:55 Dose: 1 drop Thiamine HCl (Vitamin B1 Tab) 100 mg PO DAILY [facility] Last Admin: 11/25/17 10:47 Dose: 100 mg Tramadol HCl (Ultram) 50 mg PO Q8H PRN PRN Reason: Pain, moderate (4-7) Last Admin: 11/25/17 10:47 Dose: 50 mg - Labs Labs: 11/21/17 07:20 11/24/17 07:21 - Constitutional Appears: Non-toxic, Chronically Ill - Head Exam Head Exam: NORMOCEPHALIC - Eye Exam Eye Exam: PERRL - ENT Exam ENT Exam: Mucous Membranes Dry - Neck Exam Neck Exam: absent: Thyromegaly - Respiratory Exam Respiratory Exam: Decreased Breath Sounds - Cardiovascular Exam Cardiovascular Exam: REGULAR RHYTHM - GI/Abdominal Exam GI & Abdominal Exam: Distended, Soft - Rectal Exam Rectal Exam: Deferred - Exam Exam: NORMAL INSPECTION - Extremities Exam Extremities Exam: Full ROM - Back Exam Back Exam: absent: CVA tenderness (L), CVA tenderness (R) - Neurological Exam Neurological Exam: Alert, Awake Assessment and Plan (1) Periorbital cellulitis of right eye Status: Acute - Assessment and Plan (Free Text) Plan: d/c on po rx
[2017-11-25] MEDS ORDERED: Magnesium Sulfate 1 gm in D5W 1 GM/100 ML BAG IVPB ONE (16:57)
[2017-11-25] MEDS ORDERED: Magnesium Sulfate 1 gm in D5W 1 GM/100 ML BAG IVPB SCH (17:00)
--- NOTE | 2017-11-25 17:03 | CP.PCM.PN ---
Subjective - Date & Time of Evaluation Date of Evaluation: 11/25/17 Time of Evaluation: 17:03 - Subjective Subjective: Patient was initially discharged and then was asked to stay back to have her electrolytes replaced. Patient had low Magnesium and Potassium. The patient left without getting her electrolytes replaced. She left without informing anyone. Left message at pt's at [phone] and with her daughter at . Will try to arrange of oral supplementation as out patient Objective - Vital Signs/Intake and Output Vital Signs (last 24 hours): Temp Pulse Resp BP Pulse Ox 97.7 F 64 20 164/82 H 97 11/25/17 15:49 11/25/17 15:49 11/25/17 15:49 11/25/17 15:49 11/25/17 15:49 Intake and Output: 11/25/17 11/25/17 06:59 18:59 Intake Total 650 Balance 650 - Medications Medications: Current Medications Enoxaparin Sodium (Lovenox) 40 mg SC DAILY [facility] Last Admin: 11/19/17 09:26 Dose: 40 mg Magnesium Sulfate/Dextrose (Magnesium Sulfate 1 Gm/100 Ml D5w) 1 gm in 100 mls @ 300 mls/hr IVPB Q30M [facility] Stop: 11/25/17 17:49 Magnesium Sulfate/Dextrose (Magnesium Sulfate 1 Gm/100 Ml D5w) 1 gm in 100 mls @ 200 mls/hr IVPB ONCE ONE Stop: 11/25/17 17:26 Potassium Chloride (Potassium Chloride 20 Meq/100 Ml) 20 meq in 100 mls @ 50 mls/hr IVPB ONCE ONE Stop: 11/25/17 18:56 Neomycin/Polymyxin/Gramicidin (Gramicidin/Neomycin/Polymyxin B) 0.01 ml OP TID [facility] Last Admin: 11/25/17 13:55 Dose: 1 drop Thiamine HCl (Vitamin B1 Tab) 100 mg PO DAILY [facility] Last Admin: 11/25/17 10:47 Dose: 100 mg Tramadol HCl (Ultram) 50 mg PO Q8H PRN PRN Reason: Pain, moderate (4-7) Last Admin: 11/25/17 10:47 Dose: 50 mg - Labs Labs: 11/21/17 07:20 11/24/17 07:21
== END 2017-11-25 17:45 | disposition home or self-care (01) | DRG 603 ==
LOC: C.ER 17:08 → C.9E 22:38 → C.5S 23:22
PROVIDERS: ADMIT Internal Medicine Critical Care Medicine; ATTEND Internal Medicine Critical Care Medicine
DX: L03.213 Periorbital cellulitis (principal); F17.210 Nicotine dependence, cigarettes, uncomplicated; J34.2 Deviated nasal septum; Z68.20 Body mass index [BMI] 20.0-20.9, adult

== ENCOUNTER 2017-12-22 10:08 | Emergency (ER) | payer SELFPAY ==
[2017-12-22 10:08] VITALS: BMI 20.1
[2017-12-22 10:49] VITALS: O2SAT 100
--- NOTE | 2017-12-22 11:54 | C.PDOC ---
History Of Present Illness 57-year-old female, PMHx includes Pancreatitis, presents to the emergency department with complaints of diffuse abdominal pain x1 month, Pain is sharp and intermittent in nature, worse in left-lower quadrant and radiating to the back. Patient notes one episode of non-bloody/non-bilious vomiting one week ago. States she is taking Aleve at home with minimal relief. Patient denies any fevers, chills, shortness of breath, chest pain, nausea, or any other associated symptoms. No other complaints at this time. PMD Dr Cleary Chief Complaint (Nursing): Abdominal Pain History Per: Patient History/Exam Limitations: no limitations Onset/Duration Of Symptoms: Days Current Symptoms Are (Timing): Still Present Severity: Moderate Location Of Pain/Discomfort: Diffuse, LLQ Past Medical History Reviewed: Historical Data, Nursing Documentation, Vital Signs Vital Signs: Last Vital Signs Temp 98.2 F 12/22/17 17:10 Pulse 84 12/22/17 17:10 Resp 16 12/22/17 17:10 BP 144/67 12/22/17 17:10 Pulse Ox 100 12/22/17 17:10 - Medical History PMH: Pancreatitis - [facility] Procedures URETERAL CATHETERIZATION (10/08/13) Family History: States: No Known Family Hx - Social History Hx Tobacco Use: Yes Hx Alcohol Use: Yes Hx Substance Use: No - Immunization History Hx Tetanus Toxoid Vaccination: No Hx Influenza Vaccination: No Hx Pneumococcal Vaccination: No Review Of Systems Constitutional: Negative for: Fever, Chills Cardiovascular: Negative for: Chest Pain Respiratory: Negative for: Shortness of Breath Gastrointestinal: Positive for: Vomiting, Abdominal Pain Neurological: Negative for: Weakness, Numbness Physical Exam - Physical Exam Appears: Non-toxic, No Acute Distress Skin: Warm, Dry, No Rash Head: Atraumatic, Normacephalic Eye(s): bilateral: Normal Inspection, PERRL Nose: Normal Oral Mucosa: Moist Lips: Normal Appearing Neck: Normal ROM Chest: Symmetrical Cardiovascular: Rhythm Regular, No Murmur Respiratory: Normal Breath Sounds, No Accessory Muscle Use Gastrointestinal/Abdominal: Soft, Tenderness (diffuse<LLQ), Distention (Mild), No Guarding, No Rebound Extremity: Normal ROM Neurological/Psych: Oriented x3, Normal Speech ED Course And Treatment - Laboratory Results Result Diagrams: 12/22/17 12:12/22/17 12:22 O2 Sat by Pulse Oximetry: 100 (RA) Pulse Ox Interpretation: Normal Medical Decision Making Medical Decision Making: Plan: * CT Abd/Pel * Labs * UA * Reassess and Disposition Case discussed with Dr Hathaway, states patients symptoms are not acute and she is stable for discharge/outpatient follow up in urology clinic. Patient will be started on iron replacement. Disposition - Disposition Referrals: Wilfredo Hathaway MD [Staff Provider] - Disposition: HOME/ ROUTINE Disposition Time: 18:48 Condition: FAIR Prescriptions: Acetaminophen/Hydrocodone Bi [Vicodin 300 mg-5 mg] 1 tab PO TID PRN #12 tab PRN Reason: Pain, Mild (1-3) Ferrous Sulfate 325 mg PO TID #42 tablet Instructions: Anemia (ED), Hematoma (ED) Forms: salgomed (Divehi) Print Language: UZBEK - Clinical Impression Clinical Impression: Hematoma - Scribe Statement The provider has reviewed the documentation as recorded by the Scribe (Nanette Love) All medical record entries made by the Scribe were at my direction and personally dictated by me. I have reviewed the chart and agree that the record accurately reflects my personal performance of the history, physical exam, medical decision making, and the department course for this patient. I have also personally directed, reviewed, and agree with the discharge instructions and disposition.
[2017-12-22 12:35] LABS: BASO % 0.4 % (0.0-2.0); EOS # 0.2 K/uL (0.0-0.7); EOS % 1.9 % (0.0-4.0); LYMPH # 1.5 K/uL (1.0-4.3); LYMPH % 15.7 % (20.0-40.0); MEAN CORPUSCULAR HEMOGLOBIN 31.7 pg (27.0-31.0); MEAN CORPUSCULAR HGB CONC 33.5 g/dL (33.0-37.0); MEAN PLATELET VOLUME 6.8 fL (7.2-11.7); MONO # 1.8 K/uL (0.0-0.8); MONO % 18.9 % (0.0-10.0); NEUT # 6.1 K/uL (1.8-7.0); NEUT % 63.1 % (50.0-75.0); NRBC % 0.1 % (0.0-2.0); RBC 2.48 Mil/uL (3.80-5.20); WHITE BLOOD COUNT 9.6 K/uL (4.8-10.8)
[2017-12-22 12:36] LABS: HEMOGLOBIN 7.9 g/dL (11.0-16.0); MEAN CELL VOLUME 94.5 fL (81.0-99.0)
[2017-12-22 12:39] LABS: SQUAMOUS EPITHIAL 6 /hpf (0-5); URINE BACTERIA RARE (<OCC); URINE BILIRUBIN 1+ (NEGATIVE); URINE BLOOD NEGATIVE (NEGATIVE); URINE CLARITY Hazy (Clear); URINE COLOR Amber (YELLOW); URINE GLUCOSE (UA) NORMAL (Normal); URINE LEUKOCYTE ESTERASE 1+ Leu/uL (Negative); URINE NITRATE NEGATIVE (NEGATIVE); URINE PROTEIN 1+ mg/dL (NEGATIVE)
[2017-12-22 12:57] LABS: ALB/GLOB RATIO 0.9 (1.0-2.1); ALBUMIN 3.4 g/dL (3.5-5.0); ALT/SGPT 16 U/L (9-52); AST/SGOT 17 U/L (14-36); BLOOD UREA NITROGEN 10 mg/dL (7-17); CALCIUM 8.8 mg/dl (8.6-10.4); GFR AFRICAN-AMERICAN > 60; GFR NON-AFRICAN AMERICAN > 60
[2017-12-22] MEDS ORDERED: Iodixanol 320 MG/ML 100 ML BOTTLE IV ONE (14:32)
--- NOTE | 2017-12-22 15:47 | CT ---
PROCEDURE: CT Abdomen and Pelvis with contrast HISTORY: pain COMPARISON: CT abdomen and pelvis without contrast performed 10/08/13 TECHNIQUE: Contrast dose: 100 mL Visipaque Radiation dose: Total exam DLP = 198.68 mGy-cm. This CT exam was performed using one or more of the following dose reduction techniques: Automated exposure control, adjustment of the mA and/or kV according to patient size, and/or use of iterative reconstruction technique. FINDINGS: LOWER THORAX: Mild bibasilar atelectasis. No visible pleural effusion or pneumothorax. 5 mm left lower lobe subpleural nodule (series 5, image 18). LIVER: Unremarkable. GALLBLADDER AND BILE DUCTS: Unremarkable. PANCREAS: Atrophic pancreas with dilated ectatic pancreatic duct in the innumerable calcifications ; appearance consistent with acute pancreatitis. SPLEEN: Unremarkable. ADRENALS: Left adrenal gland is not visualized. KIDNEYS AND URETERS: Massive left-sided retroperitoneal hemorrhage, possibly subcapsular or laceration contained by geroa's fascia. Intermediate attenuation is noted within the collection at the left kidney, likely subacute. Deformity of the renal parenchyma on the left within the large hematoma. VASCULATURE: Atherosclerotic calcifications. No aortic aneurysm. BOWEL: Stomach is nondistended. Lack of oral contrast limits evaluation for bowel pathology. Bowel loops appear within normal limits of caliber without evidence of obstruction. APPENDIX: The appendix is not identified. No secondary signs of acute appendicitis. PERITONEUM: No definite free air. LYMPH NODES: No bulky adenopathy identified. BLADDER: Unremarkable. REPRODUCTIVE: The uterus is present with coarse calcifications presumably due to degenerating uterine fibroid. BONES: No acute osseous abnormality is detected. OTHER FINDINGS: None. IMPRESSION: Massive left-sided retroperitoneal hemorrhage, possibly subcapsular or renal laceration contained by geroa's fascia. Intermediate attenuation is noted within the collection at the left kidney, likely subacute. Deformity of the renal parenchyma on the left within the large hematoma. Atrophic pancreas with dilated ectatic pancreatic duct in the innumerable calcifications ; appearance consistent with acute pancreatitis. The left adrenal gland is not visualized. 5 mm left lower lobe pulmonary nodule. Recommend, and patients with low risk for lung cancer, nodules from 5 mm to 6 mm in diameter should have follow-up in approximately 12 months. In patients with high-risk, such as those were smokers, follow-up is recommended in 6 months. Patients with a known malignancy or risk for metastases should receive 3 month follow-up. Additional findings as above. Emergent findings discussed with Dr. Lozoya on 12/22/17 at 3:36 p.m.
[2017-12-22 17:11] VITALS: BP 144/67; PULSE 84; RESP 16; TEMP 98.2
== END 2017-12-22 17:35 | disposition home or self-care (01) ==
LOC: C.ER 10:08
DX: S37.012A Minor contusion of left kidney, initial encounter (principal); X58.XXXA Exposure to other specified factors, initial encounter
CPT/HCPCS: 74177; 80053; 81001; 85025; 99284; G0328; Q9967

== ENCOUNTER 2018-02-19 10:45 | Emergency (ER) | payer MEDICAID ==
[2018-02-19 10:46] VITALS: BMI 20.1
--- NOTE | 2018-02-19 12:01 | C.PDOC ---
History Of Present Illness 57 year old female presents to the ED for evaluation of worsening abdominal pain which began 1 month ago. Patient states she has been experiencing intermittent abdominal and lower back pain since 11/2017. Patient reports new onset with radiation to bilateral upper legs that is worse with movement and position. No associated weakness/numbness. Patient reports 10-15 pound weight loss in one month. Denies nausea, vomiting, and diarrhea. Patient was seen on 12/22 for the same. Per visit record, patient had abdominal pain x [address] Report and labs reviewed. Patient states she followed up with PMD and was given "muscle relaxants" but no further follow up due to lack of insurance. Patient denies EtOH use, past surgical history. WORSENING ABD PAIN X 1 MO. PS INTERMIT ABD/LBP SINCE 11/2017. NEW ONSET RADIATION B/L UPPER LEGS WORSE W MOVEMENT AND POSITION. NO ASSOC WEAK/NUMB. +10- 15 LB WT LOSS IN 1 MO. NO NVD. SEEN 12/22 FOR SAME, PER VISIT RECORD PT W ABD PAIN X 1 MO @ THAT TIME. CT REPORT, LABS REVIEWED. PS FU W PMD, GIVEN "MUSCLE RELAXANTS" BUT NO FURTHER FU DUE TO LACK OF INSURANCE. DENIES ETOH USE. PSH EXAM MLID DIST NONTOXIC HEENT ANICTERIC ABD SOFT NO R/G NONDIST MIN B/L LQ TEND EXT AROM WO DIFF GAIT LIMITED DUE TO PAIN NEURO NO FOCAL DEF REMAINDER NEG Time Seen by Provider: 02/19/18 11:59 Chief Complaint (Nursing): Abdominal Pain History Per: Patient History/Exam Limitations: no limitations Onset/Duration Of Symptoms: Intermittent Episodes, Other (1 month ) Current Symptoms Are (Timing): Worse Additional History Per: Patient Past Medical History Reviewed: Historical Data, Nursing Documentation, Vital Signs Vital Signs: Last Vital Signs Temp 99.4 F 02/19/18 17:38 Pulse 77 02/19/18 17:38 Resp 18 02/19/18 17:38 BP 158/85 H 02/19/18 17:38 Pulse Ox 100 02/19/18 23:23 - Medical History PMH: Pancreatitis Surgical History: No Surg Hx - [facility] Procedures URETERAL CATHETERIZATION (10/08/13) Family History: States: Unknown Family Hx - Social History Hx Tobacco Use: Yes Hx Alcohol Use: Yes Hx Substance Use: No - Immunization History Hx Tetanus Toxoid Vaccination: No Hx Influenza Vaccination: No Hx Pneumococcal Vaccination: No Review Of Systems Gastrointestinal: Positive for: Abdominal Pain. Negative for: Nausea, Vomiting , Diarrhea Musculoskeletal: Positive for: Leg Pain (b/l, upper ) Physical Exam - Physical Exam Appears: Non-toxic, Other (in mild distress ) Skin: Normal Color, Warm, Dry Head: Atraumatic, Normacephalic Eye(s): bilateral: Other (anicteric ) Ear(s): Bilateral: Normal Nose: Normal, No Discharge Oral Mucosa: Moist Throat: Normal, No Erythema, No Exudate Neck: Supple Chest: Symmetrical, No Deformity, No Tenderness Cardiovascular: Rhythm Regular, No Murmur Respiratory: Normal Breath Sounds, No Rales, No Rhonchi, No Wheezing Gastrointestinal/Abdominal: Soft, Tenderness (minimal, to bilateral lower quadrants ), No Distention, No Guarding, No Rebound Extremity: Normal ROM, Capillary Refill (less than 2 seconds ) Neurological/Psych: Oriented x3, Normal Speech, Normal Cognition, Other (no focal deficits ) Gait: Other (limited gait due to pain) ED Course And Treatment - Laboratory Results Result Diagrams: 02/19/18 12:49 02/19/18 12:49 O2 Sat by Pulse Oximetry: 100 (on RA) Pulse Ox Interpretation: Normal Progress Note: Bloodwork, urinalysis, CT A/P ordered and reviewed. Morphine IVP and IV Fluids administered. Progress - Re-Evaluation Re-evaluation Note: 02/19/18 15:24 D/W DR VALENCIA: L COMPRESSED RENAL PARENCHYMA BY CONTAINED FLUID COLLECTION. UNCH SIZE FROM PRIOR. NO CONTRAST EXTRAVASATION. CHRONIC PANCREATITIS. 02/19/18 15:43 D/W SURG RESIDENT WILL EVAL IN ER 02/19/18 17:11 CLEARED BY GEN SURGERY OUTPT PRN D/W DR John BYRD AWARE OF ER FINDINGS: FU OFFICE 02/22. D/W PT AND FAMILY, AGREE W DC PLAN - Data Reviewed Data Reviewed: Lab, Diagnostic imaging, Old records - Continuity of Care Discussed patient case with:: Patient, Family-HIPPA compliant Discussed pt. case with it systems analyst consultant/specialty: General Surgery, Radiology, Urology Disposition Counseled Patient/Family Regarding: Studies Performed, Diagnosis, Need For Followup - Disposition Referrals: Julio Byrd MD [Staff Provider] - Disposition: HOME/ ROUTINE Disposition Time: 17:12 Condition: GOOD Additional Instructions: FOLLOW UP DR John BYRD [address] @ 10 AM 4/9 TAKE TYLENOL DIRECTED FOR PAIN. AVOID NSAIDS UNTIL EVALUATION UROLOGY Instructions: Acute Abdomen (Belly Pain), Adult (DC) Forms: OFERTALDIA (Faroese) - Clinical Impression Clinical Impression: Chronic abdominal pain, Retroperitoneal fluid collection - Scribe Statement The provider has reviewed the documentation as recorded by the Scribe (Teodora Walker) Provider Attestation: All medical record entries made by the Scribe were at my direction and personally dictated by me. I have reviewed the chart and agree that the record accurately reflects my personal performance of the history, physical exam, medical decision making, and the department course for this patient. I have also personally directed, reviewed, and agree with the discharge instructions and disposition.
[2018-02-19] MEDS ORDERED: Sodium Chloride 0.9% 1,000 ML IV ONE (12:40)
[2018-02-19] MEDS ORDERED: Iohexol 240 (50 ml) PO STA (12:40)
[2018-02-19] MEDS ORDERED: Morphine 4 MG/ML VIAL ONE (12:52)
[2018-02-19 12:53] LABS: BASO # 0.1 K/uL (0.0-0.2); BASO % 1.1 % (0.0-2.0); EOS # 0.3 K/uL (0.0-0.7); EOS % 3.8 % (0.0-4.0); HEMOGLOBIN 9.6 g/dL (11.0-16.0); LYMPH # 2.2 K/uL (1.0-4.3); LYMPH % 24.1 % (20.0-40.0); MEAN CORPUSCULAR HEMOGLOBIN 29.2 pg (27.0-31.0); MEAN CORPUSCULAR HGB CONC 33.5 g/dL (33.0-37.0); MEAN PLATELET VOLUME 7.3 fL (7.2-11.7); MONO % 11.4 % (0.0-10.0); NEUT # 5.4 K/uL (1.8-7.0); NEUT % 59.6 % (50.0-75.0); RBC 3.28 Mil/uL (3.80-5.20); RED CELL DISTRIBUTION WIDTH 19.4 % (11.5-14.5)
[2018-02-19] MEDS ORDERED: Iohexol 240 (50 ml) ONE (12:53)
[2018-02-19] MEDS ORDERED: Sodium Chloride 0.9% 1,000 ML ONE (12:53)
[2018-02-19 12:54] LABS: MEAN CELL VOLUME 87.3 fL (81.0-99.0)
[2018-02-19 13:06] LABS: ALB/GLOB RATIO 0.8 (1.0-2.1); ALBUMIN 3.8 g/dL (3.5-5.0); ALT/SGPT 16 U/L (9-52); AST/SGOT 23 U/L (14-36); BLOOD UREA NITROGEN 12 mg/dL (7-17); CALCIUM 8.8 mg/dl (8.6-10.4); GFR AFRICAN-AMERICAN > 60; GFR NON-AFRICAN AMERICAN > 60
[2018-02-19 13:08] LABS: LIPASE < 10 U/L (23-300)
[2018-02-19 13:11] LABS: SQUAMOUS EPITHIAL < 1 /hpf (0-5); URINE BILIRUBIN NEGATIVE (NEGATIVE); URINE BLOOD 1+ (NEGATIVE); URINE CLARITY Clear (Clear); URINE COLOR Yellow (YELLOW); URINE GLUCOSE (UA) NORMAL (Normal); URINE LEUKOCYTE ESTERASE NEG Leu/uL (Negative); URINE PROTEIN 1+ mg/dL (NEGATIVE); URINE UROBILINOGEN NORMAL mg/dL (0.2-1.0)
[2018-02-19] MEDS ORDERED: Iohexol 350mg/ml 100 ML ONE (14:13)
--- NOTE | 2018-02-19 15:29 | CT ---
PROCEDURE: CT Abdomen and Pelvis with contrast HISTORY: abd pain COMPARISON: 12/22/2017 TECHNIQUE: Contrast dose: 100 mL Omnipaque 350 Radiation dose: Total exam DLP = 233.79 mGy-cm. This CT exam was performed using one or more of the following dose reduction techniques: Automated exposure control, adjustment of the mA and/or kV according to patient size, and/or use of iterative reconstruction technique. FINDINGS: LOWER THORAX: 8 mm nodule left lower lobe, subpleural. Previously this was described as a 5 mm nodule on prior examination. Followup in 6-[address] as per Fleischner society criteria. 5 mm lingular nodule. Not seen on prior examination. No followup required. No infiltrate/ effusion. Linear scar/atelectasis left lower lobe. LIVER: Unremarkable. No gross lesion or ductal dilatation. GALLBLADDER AND BILE DUCTS: Unremarkable. PANCREAS: Extensive coarse calcification consistent with chronic pancreatitis. Dilated pancreatic duct. No mass. No peripancreatic fluid. SPLEEN: Unremarkable. ADRENALS: Unremarkable right adrenal. Left adrenal difficult to evaluate due to current pathology of left renal fossa. KIDNEYS AND URETERS: Large low-attenuation fluid collection about the left kidney, likely subcapsular or contained within Gerota's fascia. There is compression and displacement of portions of the kidney. There was probable renal laceration/ fracture at the time of the prior CT examination. The overall size of the collection about the left kidney is approximately 19.5 x 12.5 cm. Probable chronic serous collection. Atrophic or compressed left psoas muscle. Unremarkable right kidney. . VASCULATURE: Unremarkable. No aortic aneurysm. BOWEL: Unremarkable. No obstruction. No gross mural thickening. APPENDIX: Not identified. No secondary findings. PERITONEUM: Unremarkable. No free fluid. No free air. LYMPH NODES: Unremarkable. No enlarged lymph nodes. BLADDER: Unremarkable. REPRODUCTIVE: Uterus with coarse calcifications consistent with calcified degenerated fibroids. BONES: No acute fracture. Thoracolumbar dextroscoliosis. OTHER FINDINGS: None. IMPRESSION: Large left perinephric fluid collection with compressed/ displaced renal parenchyma. Probable chronic fluid collection resulting from left renal fracture/laceration contained by a either renal capsule or Gerota's fascia, with severe compression of renal parenchyma. There is enhancing renal parenchyma evident. Also noted is chronic pancreatitis. Left lower lobe pulmonary nodule as described. Minor findings as above. Findings discussed with Dr. Carlisle by telephone at 3:30 p.m. on 02/19/2018.
[2018-02-19 17:38] VITALS: BP 158/85; PULSE 77; RESP 18; TEMP 99.4
[2018-02-19 23:22] VITALS: O2SAT 100
== END 2018-02-19 17:38 | disposition home or self-care (01) ==
LOC: C.ER 10:45
DX: R18.8 Other ascites (principal); R10.9 Unspecified abdominal pain; G89.29 Other chronic pain
CPT/HCPCS: 74177; 80053; 81001; 83690; 85025; 96361; 96374; 99285; J2270; J7040; Q9966; Q9967

== ENCOUNTER 2019-01-20 17:38 | Inpatient (IN) | payer MEDICAID ==
[2019-01-20 17:39] VITALS: BMI 20.1
[2019-01-20 19:17] LABS: BASO # 0.1 K/uL (0.0-0.2); BASO % 0.8 % (0.0-2.0); EOS # 0.6 K/uL (0.0-0.7); EOS % 4.5 % (0.0-4.0); HEMOGLOBIN 9.3 g/dL (11.0-16.0); LYMPH # 2.6 K/uL (1.0-4.3); MEAN CELL VOLUME 77.7 fL (81.0-99.0); MEAN CORPUSCULAR HGB CONC 30.9 g/dL (33.0-37.0); MEAN PLATELET VOLUME 7.7 fL (7.2-11.7); MONO # 1.6 K/uL (0.0-0.8); MONO % 11.4 % (0.0-10.0); NEUT # 9.4 K/uL (1.8-7.0); NEUT % 65.3 % (50.0-75.0); NRBC % 0.2 % (0.0-2.0); RBC 3.87 Mil/uL (3.80-5.20); RED CELL DISTRIBUTION WIDTH 18.6 % (11.5-14.5); WHITE BLOOD COUNT 14.4 K/uL (4.8-10.8)
[2019-01-20 19:31] LABS: ALBUMIN 3.3 g/dL (3.5-5.0); ALT/SGPT 14 U/L (9-52); AST/SGOT 22 U/L (14-36); BLOOD UREA NITROGEN 16 mg/dL (7-17); CALCIUM 8.2 mg/dl (8.6-10.4); GFR NON-AFRICAN AMERICAN 57
--- NOTE | 2019-01-20 19:38 | C.PDOC ---
History Of Present Illness 58 year old female with Hx of single working kidney presents with weakness and feeling fatigued for the past week. Denies chset pain, SOB, nausea, vomiting, abdominal pain, diarrhea, or recent travel. Time Seen by Provider: 01/20/19 19:01 Chief Complaint (Nursing): Lower Extremity Problem/Injury History Per: Patient History/Exam Limitations: no limitations Onset/Duration Of Symptoms: Days (1 week) Current Symptoms Are (Timing): Still Present Recent travel outside of the [place]: No Past Medical History Reviewed: Historical Data, Nursing Documentation, Vital Signs Vital Signs: Last Vital Signs Temp 98.7 F 01/20/19 17:59 Pulse 85 01/20/19 17:59 Resp 20 01/20/19 17:59 BP 138/81 01/20/19 17:59 Pulse Ox 100 01/20/19 17:59 - Medical History PMH: Pancreatitis - [facility] Procedures URETERAL CATHETERIZATION (10/08/13) Family History: States: Unknown Family Hx - Social History Hx Tobacco Use: Yes Hx Alcohol Use: Yes Hx Substance Use: No - Immunization History Hx Tetanus Toxoid Vaccination: No Hx Influenza Vaccination: No Hx Pneumococcal Vaccination: No Review Of Systems Except As Marked, All Systems Reviewed And Found Negative. Constitutional: Positive for: Weakness, Other (Fatigue). Negative for: Fever, Chills Cardiovascular: Negative for: Chest Pain, Palpitations Respiratory: Negative for: Cough, Shortness of Breath Gastrointestinal: Negative for: Nausea, Vomiting Genitourinary: Negative for: Dysuria, Hematuria Physical Exam - Physical Exam Appears: Non-toxic Skin: Normal Color, Warm, Dry Head: Atraumatic, Normacephalic Eye(s): bilateral: Normal Inspection Oral Mucosa: Moist Neck: Normal, Supple Chest: Symmetrical, No Tenderness Cardiovascular: Rhythm Regular Respiratory: Normal Breath Sounds, No Rales, No Rhonchi, No Wheezing Gastrointestinal/Abdominal: Soft, No Tenderness Back: No CVA Tenderness Neurological/Psych: Oriented x3, Normal Speech ED Course And Treatment - Laboratory Results Result Diagrams: 01/20/19 19:12 01/20/19 19:12 Lab Results: Total Bilirubin 0.9 mg/dL (0.2-1.3) 01/20/19 19:12 AST 22 U/L (14-36) 01/20/19 19:12 ALT 14 U/L (9-52) 01/20/19 19:12 Alkaline Phosphatase 89 U/L (38-126) 01/20/19 19:12 Total Protein 6.8 g/dL (6.3-8.3) 01/20/19 19:12 Albumin 3.3 g/dL (3.5-5.0) L 01/20/19 19:12 Globulin 3.5 gm/dL (2.2-3.9) 01/20/19 19:12 Albumin/Globulin Ratio 1.0 (1.0-2.1) 01/20/19 19:12 ECG: Interpreted By Me, Viewed By Me ECG Rhythm: Sinus Rhythm ECG Interpretation: Normal Interpretation Of ECG: Normal intervals, normal axis, no ST/T wave abnormalities. Rate From EC O2 Sat by Pulse Oximetry: 100 - Radiology CXR: Interpreted by Me, Viewed By Me CXR Interpretation: Yes: Other (Preliminary reading shows right lung mass) Medical Decision Making Medical Decision Making: Assessment: Weakness Plan: Blood work, EKG, CT head, urinalysis, and CXR ordered. Disposition Discussed With : Ansley Theodore Counseled Patient/Family Regarding: Studies Performed, Diagnosis - Disposition Disposition: HOSPITALIZED Disposition Time: 19:53 Condition: FAIR Instructions: Weakness (ED) Forms: [facility] (Micronesian) - Clinical Impression Clinical Impression: Lung mass, Weakness - Scribe Statement The provider has reviewed the documentation as recorded by the Scribe Janusz Owen All medical record entries made by the Scribe were at my direction and personally dictated by me. I have reviewed the chart and agree that the record accurately reflects my personal performance of the history, physical exam, medical decision making, and the department course for this patient. I have also personally directed, reviewed, and agree with the discharge instructions and disposition.
[2019-01-20 19:42] LABS: B-TYPE NATRIURETIC PEPTIDE 1010 pg/mL (0-900)
[2019-01-20 20:04] LABS: SQUAMOUS EPITHIAL 2 /hpf (0-5); URINE BACTERIA OCC (<OCC); URINE BILIRUBIN NEGATIVE (NEGATIVE); URINE BLOOD 1+ (NEGATIVE); URINE CLARITY Hazy (Clear); URINE COLOR Yellow (YELLOW); URINE GLUCOSE (UA) NORMAL (Normal); URINE LEUKOCYTE ESTERASE NEG Leu/uL (Negative); URINE PROTEIN NEGATIVE (NEGATIVE); URINE UROBILINOGEN NORMAL mg/dL (0.2-1.0)
--- NOTE | 2019-01-20 20:24 | CP.PCM.HP ---
History of Present Illness - History of Present Illness History of Present Illness: 58 year old female with Hx of single working kidney presents with weakness and feeling fatigued for the past week Chest x-ray done in emergency room shows a large mass in the right middle lobe and a calcified circular mass behind the stom gas bubble. CT of the chest is pending In February 2018 patient presented to emergency room complaining of 10-15 pound of weight loss and abdominal pain. During that time as CT of the abdomen was done which showed resolving pyelonephritis and also a nodule of 8 mm in the left lower lobe and another 5 minutes and noted on the right lung with a report of follow-up in 6-8 months CAT scan. On reviewing the Emergency Room physician's note there is no mention of follow-up for this mass but patient was refe urologist for kidney stone. Present on Admission - Present on Admission Any Indicators Present on Admission: No Review of Systems - Review of Systems All systems: reviewed and no additional remarkable complaints except (fatigue and tiredness) Past Patient History - Infectious Disease Hx of Infectious Diseases: None - Past Social History Smoking Status: Heavy Smoker > 10 Cigarettes Daily - ENDOCRINE/METABOLIC Hx Diabetes Mellitus Type 2: Yes - MUSCULOSKELETAL/RHEUMATOLOGICAL Hx Falls: No - GASTROINTESTINAL Hx Pancreatitis: Yes - PSYCHIATRIC Hx Substance Use: No - SURGICAL HISTORY Hx Surgeries: Yes Other/Comment: Kidney Stents - ANESTHESIA Hx Anesthesia: Yes Hx Anesthesia Reactions: No Hx Malignant Hyperthermia: No Meds Allergies/Adverse Reactions: Allergies Allergy/AdvReac Type Severity Reaction Status Date / Time No Known Allergies Allergy Verified 01/20/19 18:21 Physical Exam - Constitutional Appears: Well - Head Exam Head Exam: ATRAUMATIC, NORMAL INSPECTION, NORMOCEPHALIC - Eye Exam Eye Exam: EOMI, Normal appearance, PERRL - ENT Exam ENT Exam: Mucous Membranes Moist, Normal Exam - Neck Exam Neck exam: Positive for: Normal Inspection - Respiratory Exam Respiratory Exam: Clear to Auscultation Bilateral, NORMAL BREATHING PATTERN - Cardiovascular Exam Cardiovascular Exam: REGULAR RHYTHM - GI/Abdominal Exam GI & Abdominal Exam: Normal Bowel Sounds, Soft. absent: Tenderness - Extremities Exam Extremities exam: Positive for: normal inspection - Back Exam Back exam: NORMAL INSPECTION - Neurological Exam Neurological exam: Alert, CN II-XII Intact, Normal Gait, Oriented x3, Reflexes Normal Results - Vital Signs Recent Vital Signs: Last Vital Signs Temp 98.7 F 01/20/19 17:59 Pulse 85 01/20/19 17:59 Resp 20 01/20/19 17:59 BP 138/81 01/20/19 17:59 Pulse Ox 100 01/20/19 19:53 - Labs Result Diagrams: 01/20/19 19:12 01/20/19 19:12 Labs: Laboratory Results - last 24 hr 01/20/19 01/20/19 01/20/19 18:05 19:12 19:12 WBC 14.4 H D RBC 3.87 Hgb 9.3 L Hct 30.1 L MCV 77.7 L D MCH 24.0 L MCHC 30.9 L RDW 18.6 H Plt Count 358 MPV 7.7 Neut % (Auto) 65.3 Lymph % (Auto) 18.0 L [place] % (Auto) 11.4 H Eos % (Auto) 4.5 H Baso % (Auto) 0.8 Neut # (Auto) 9.4 H Lymph # (Auto) 2.6 [place] # (Auto) 1.6 H Eos # (Auto) 0.6 Baso # (Auto) 0.1 Sodium 134 Potassium 3.8 Chloride 101 Carbon Dioxide 21 L Anion Gap 16 BUN 16 Creatinine 1.0 Est GFR ( Amer) > 60 Est GFR (Non-Af Amer) 57 POC Glucose (mg/dL) 137 H Random Glucose 126 H D Calcium 8.2 L Magnesium 1.7 Total Bilirubin 0.9 AST 22 ALT 14 Alkaline Phosphatase 89 Troponin I 0.0780 NT-Pro-B Natriuret Pep 1010 H Total Protein 6.8 Albumin 3.3 L Globulin 3.5 Albumin/Globulin Ratio 1.0 TSH 3rd Generation 1.66 Urine Color Urine Clarity Urine pH Ur Specific [place] Urine Protein Urine Glucose (UA) Urine Ketones Urine Blood Urine Nitrate Urine Bilirubin Urine Urobilinogen Ur Leukocyte Esterase Urine WBC (Auto) Urine RBC (Auto) Ur Squamous Epith Cells Urine Bacteria 01/20/19 19:53 WBC RBC Hgb Hct MCV MCH MCHC RDW Plt Count MPV Neut % (Auto) Lymph % (Auto) [place] % (Auto) Eos % (Auto) Baso % (Auto) Neut # (Auto) Lymph # (Auto) [place] # (Auto) Eos # (Auto) Baso # (Auto) Sodium Potassium Chloride Carbon Dioxide Anion Gap BUN Creatinine Est GFR ( Amer) Est GFR (Non-Af Amer) POC Glucose (mg/dL) Random Glucose Calcium Magnesium Total Bilirubin AST ALT Alkaline Phosphatase Troponin I NT-Pro-B Natriuret Pep Total Protein Albumin Globulin Albumin/Globulin Ratio TSH 3rd Generation Urine Color Yellow Urine Clarity Hazy Urine pH 5.0 Ur Specific [place] 1.008 Urine Protein Negative Urine Glucose (UA) Normal Urine Ketones Negative Urine Blood 1+ H Urine Nitrate Negative Urine Bilirubin Negative Urine Urobilinogen Normal Ur Leukocyte Esterase Neg Urine WBC (Auto) 5 Urine RBC (Auto) 2 Ur Squamous Epith Cells 2 Urine Bacteria Occ H Assessment & Plan (1) Lung mass Status: Acute (2) Weakness Status: Acute
[2019-01-21 08:45] LABS: BASO % 0.8 % (0.0-2.0); MEAN CELL VOLUME 77.6 fL (81.0-99.0)
[2019-01-21 08:49] LABS: BASO # 0.2 K/uL (0.0-0.2); EOS # 0.6 K/uL (0.0-0.7); EOS % 3.5 % (0.0-4.0); HEMOGLOBIN 7.8 g/dL (11.0-16.0); LYMPH # 2.4 K/uL (1.0-4.3); LYMPH % 12.9 % (20.0-40.0); MEAN CORPUSCULAR HEMOGLOBIN 24.6 pg (27.0-31.0); MEAN CORPUSCULAR HGB CONC 31.7 g/dL (33.0-37.0); MEAN PLATELET VOLUME 7.6 fL (7.2-11.7); MONO # 1.5 K/uL (0.0-0.8); MONO % 8.1 % (0.0-10.0); NEUT # 13.7 K/uL (1.8-7.0); NEUT % 74.7 % (50.0-75.0); NRBC % 0.1 % (0.0-2.0); RBC 3.18 Mil/uL (3.80-5.20); RED CELL DISTRIBUTION WIDTH 18.6 % (11.5-14.5); WHITE BLOOD COUNT 18.3 K/uL (4.8-10.8)
[2019-01-21 08:59] LABS: ALB/GLOB RATIO 0.9 (1.0-2.1); ALBUMIN 2.8 g/dL (3.5-5.0); ALT/SGPT 16 U/L (9-52); AST/SGOT 20 U/L (14-36); BLOOD UREA NITROGEN 12 mg/dL (7-17); GFR NON-AFRICAN AMERICAN > 60
--- NOTE | 2019-01-21 10:11 | RAD ---
Date of service: 01/20/2019 PROCEDURE: CHEST RADIOGRAPH, 1 VIEW HISTORY: SOB COMPARISON: 10/10/2013 the. FINDINGS: LUNGS: The lungs are well inflated. There is dense masslike consolidation in the right upper lobe. The left lung is clear. PLEURA: No pneumothorax or pleural effusion. CARDIOVASCULAR: The heart is normal in size. No aortic atherosclerotic calcifications present. OSSEOUS STRUCTURES: Within normal limits for the patient's age. VISUALIZED UPPER ABDOMEN: Normal. OTHER FINDINGS: None. IMPRESSION: Dense masslike consolidation in the right upper lobe. Follow-up after medical management is recommended to ensure complete resolution as postobstructive pneumonia cannot be excluded. The final report is tagged to the PA review folder.
--- NOTE | 2019-01-21 10:22 | CP.PCM.PN ---
Subjective - Date & Time of Evaluation Date of Evaluation: 01/21/19 Time of Evaluation: 10:21 - Subjective Subjective: CLINICALLY REMAINS STABLE NO CT CHEST REPORT WBC IS UP 18 AWAITING PULM. EVAL Objective - Vital Signs/Intake and Output Vital Signs (last 24 hours): Temp Pulse Resp BP Pulse Ox 97.4 F L 80 20 107/60 98 01/21/19 07:54 01/21/19 07:54 01/21/19 07:54 01/21/19 07:54 01/21/19 07:54 Intake and Output: 01/20/19 01/21/19 23:59 11:59 Intake Total 500 Balance 500 - Medications Medications: Current Medications Enoxaparin Sodium (Lovenox) 40 mg SC DAILY SHILOH Ibuprofen (Motrin Tab) 600 mg PO PRN PRN PRN Reason: Pain, moderate (4-7) Pneumococcal Polyvalent Vaccine (Pneumovax 23 Vaccine) 0.5 ml IM .ONCE ONE Stop: 01/23/19 10:01 - Labs Labs: 01/21/19 08:11 01/21/19 08:11 Assessment and Plan (1) Lung mass Status: Acute (2) Weakness Status: Acute
[2019-01-21] MEDS: Enoxaparin 40 mg Syringe SC SCH (10:35)
--- NOTE | 2019-01-21 12:56 | CP.PCM.CON ---
History of Present Illness - History of Present Illness History of Present Illness: Pulmonary Consult, Covering Dr Taylor The Patient was seen and examined at the bedside, Medical records reviewed, and management issues were discussed and formulated with the house staff. Events reviewed Mrs Catalan is a 58 years old former heavy smoker female with past medical history that is significant for pancreatitis who initially presented to the emergency room on January 20 with complaint of generalized weakness and feeling fatigue In the emergency room she was hemodynamically stable, afebrile, saturation of 100% She had chest x-ray revealed large right upper lobe mass like consolidation, no pneumothorax, infiltrate or pleural effusion and left lung clear subsequently she had chest CT scan without IV contrast confirming the presence of large right upper lobe mass 5.5 x 8.3 x 6.2 cm the mass with irregular and direct extension to the right hilum, there is another satellite mass in the right upper lobe measuring 1.4 cm, possible atelectasis of the right upper lobe, Positive mediastinal lymphadenopathy CXR and CT scan reviewd Patient old record was reviewed she has no recent hospital admission, her most recent chest x-ray was present in our hospital 2012 and there was no mass back at that time, her most recent [facility] hospitalization was in February 2018 for abdominal pain and back at that time she had a CAT scan of the abdomen and pelvis but no chest imaging Patient denies nausea vomiting abdominal pain chest pain shortness of breath fever/chills, cough, sputum production, or hemoptysis No recent hospitalization travel or sick contact Discussed with the patient in detail her chest x-ray CAT scan findings and a highly suspicious for malignancy, patient was given opportunity to ask any question which was answered to her satisfaction Arranged for CT scan guided biopsy on Thursday, Patient agrees with the above plans Review of Systems - Constitutional Constitutional: As Per HPI, Anorexia, Fatigue, Malaise, Weight Loss. absent: Chills, Daytime Sleepiness, Excessive Sweating, Fever, Frequent Falls, Increased Appetite, Lethargy, Sleep Apnea - Respiratory Respiratory: absent: As Per HPI, Cough, Dyspnea, Hemoptysis, Dyspnea on Exertion, Wheezing, Snoring, Stridor, Pain on Inspiration, Chest Congestion, Excessive Mucous Production, Change in Mucous Color, Pain with Coughing, Other - Gastrointestinal Gastrointestinal: absent: As Per HPI, Abdominal Pain, Belching, Bloating, Change in Bowel Habits, Change in Stool Character, Coffee Ground Emesis, Constipation, Cramping, Diarrhea, Dyspepsia, Dysphagia, Early Satiety, Excessive Flatus, Fecal Incontinence, Heartburn, Hematemesis, Hematochezia, Loose Stools, Melena, N ausea, Odynophagia, Temesmus, Vomiting, Other Past Patient History - Infectious Disease Hx of Infectious Diseases: None - Past Medical History & Family History Past Medical History?: Yes - Past Social History Smoking Status: Heavy Smoker > 10 Cigarettes Daily - CARDIAC Hx Cardiac Disorders: No - PULMONARY Hx Respiratory Disorders: No - NEUROLOGICAL Hx Neurological Disorder: No - HEENT Hx HEENT Problems: No - RENAL Hx Chronic Kidney Disease: Yes Hx Renal Failure: Yes Other/Comment: kidney stent - ENDOCRINE/METABOLIC Hx Endocrine Disorders: Yes Hx Diabetes Mellitus Type 2: Yes - HEMATOLOGICAL/ONCOLOGICAL Hx Blood Disorders: No - INTEGUMENTARY Hx Dermatological Problems: No - MUSCULOSKELETAL/RHEUMATOLOGICAL Hx Musculoskeletal Disorders: No Hx Falls: No - GASTROINTESTINAL Hx Gastrointestinal Disorders: No Hx Pancreatitis: Yes - GENITOURINARY/GYNECOLOGICAL Hx Genitourinary Disorders: No - PSYCHIATRIC Hx Psychophysiologic Disorder: No Hx Substance Use: No - SURGICAL HISTORY Hx Surgeries: Yes Other/Comment: Kidney Stents - ANESTHESIA Hx Anesthesia: Yes Hx Anesthesia Reactions: No Hx Malignant Hyperthermia: No Meds Allergies/Adverse Reactions: Allergies Allergy/AdvReac Type Severity Reaction Status Date / Time No Known Allergies Allergy Verified 01/20/19 18:21 - Medications Medications: Current Medications Enoxaparin Sodium (Lovenox) 40 mg SC DAILY SHILOH Last Admin: 01/21/19 10:35 Dose: 40 mg Ibuprofen (Motrin Tab) 600 mg PO PRN PRN PRN Reason: Pain, moderate (4-7) Pneumococcal Polyvalent Vaccine (Pneumovax 23 Vaccine) 0.5 ml IM .ONCE ONE Stop: 01/23/19 10:01 Physical Exam - Constitutional Appears: Well, Non-toxic, No Acute Distress, Older Than Stated Age, Cachectic, Chronically Ill - Head Exam Head Exam: ATRAUMATIC, NORMAL INSPECTION - Eye Exam Eye Exam: EOMI, Normal appearance, PERRL. absent: Conjunctival injection Pupil Exam: NORMAL ACCOMODATION, PERRL - ENT Exam ENT Exam: Mucous Membranes Moist, Normal Exam - Neck Exam Neck exam: Positive for: Normal Inspection - Respiratory Exam Respiratory Exam: Decreased Breath Sounds, Prolonged Expiratory Phase, Rhonchi, NORMAL BREATHING PATTERN. absent: Accessory Muscle Use, Chest Wall Tenderness, Rales, Wheezes - Cardiovascular Exam Cardiovascular Exam: RRR, +S1, +S2. absent: Bradycardia, Tachycardia, JVD - GI/Abdominal Exam GI & Abdominal Exam: Normal Bowel Sounds, Soft. absent: Tenderness - Back Exam Back exam: absent: CVA tenderness (L), CVA tenderness (R) - Neurological Exam Neurological exam: Alert, CN II-XII Intact, Oriented x3 Results - Vital Signs Recent Vital Signs: Last Vital Signs Temp 97.4 F L 01/21/19 07:54 Pulse 80 01/21/19 07:54 Resp 20 01/21/19 07:54 BP 107/60 01/21/19 07:54 Pulse Ox 98 01/21/19 07:54 - Labs Result Diagrams: 01/23/19 07:11 01/23/19 07:11 Labs: Laboratory Results - last 24 hr 01/20/19 01/20/19 01/20/19 18:05 19:12 19:12 WBC 14.4 H D RBC 3.87 Hgb 9.3 L Hct 30.1 L MCV 77.7 L D MCH 24.0 L MCHC 30.9 L RDW 18.6 H Plt Count 358 MPV 7.7 Neut % (Auto) 65.3 Lymph % (Auto) 18.0 L [place] % (Auto) 11.4 H Eos % (Auto) 4.5 H Baso % (Auto) 0.8 Neut # (Auto) 9.4 H Lymph # (Auto) 2.6 [place] # (Auto) 1.6 H Eos # (Auto) 0.6 Baso # (Auto) 0.1 Sodium 134 Potassium 3.8 Chloride 101 Carbon Dioxide 21 L Anion Gap 16 BUN 16 Creatinine 1.0 Est GFR ( Amer) > 60 Est GFR (Non-Af Amer) 57 POC Glucose (mg/dL) 137 H Random Glucose 126 H D Calcium 8.2 L Magnesium 1.7 Total Bilirubin 0.9 AST 22 ALT 14 Alkaline Phosphatase 89 Troponin I 0.0780 NT-Pro-B Natriuret Pep 1010 H Total Protein 6.8 Albumin 3.3 L Globulin 3.5 Albumin/Globulin Ratio 1.0 TSH 3rd Generation 1.66 Urine Color Urine Clarity Urine pH Ur Specific [place] Urine Protein Urine Glucose (UA) Urine Ketones Urine Blood Urine Nitrate Urine Bilirubin Urine Urobilinogen Ur Leukocyte Esterase Urine WBC (Auto) Urine RBC (Auto) Ur Squamous Epith Cells Urine Bacteria 01/20/19 01/21/19 01/21/19 19:53 08:11 08:11 WBC 18.3 H RBC 3.18 L Hgb 7.8 L Hct 24.7 L MCV 77.6 L MCH 24.6 L MCHC 31.7 L RDW 18.6 H Plt Count 327 MPV 7.6 Neut % (Auto) 74.7 Lymph % (Auto) 12.9 L [place] % (Auto) 8.1 Eos % (Auto) 3.5 Baso % (Auto) 0.8 Neut # (Auto) 13.7 H Lymph # (Auto) 2.4 [place] # (Auto) 1.5 H Eos # (Auto) 0.6 Baso # (Auto) 0.2 Sodium 135 Potassium 3.9 Chloride 103 Carbon Dioxide 23 Anion Gap 12 BUN 12 Creatinine 0.8 Est GFR ( Amer) > 60 Est GFR (Non-Af Amer) > 60 POC Glucose (mg/dL) Random Glucose 99 D Calcium 8.0 L Magnesium Total Bilirubin 1.0 AST 20 ALT 16 Alkaline Phosphatase 76 Troponin I NT-Pro-B Natriuret Pep Total Protein 5.9 L Albumin 2.8 L Globulin 3.2 Albumin/Globulin Ratio 0.9 L TSH 3rd Generation Urine Color Yellow Urine Clarity Hazy Urine pH 5.0 Ur Specific [place] 1.008 Urine Protein Negative Urine Glucose (UA) Normal Urine Ketones Negative Urine Blood 1+ H Urine Nitrate Negative Urine Bilirubin Negative Urine Urobilinogen Normal Ur Leukocyte Esterase Neg Urine WBC (Auto) 5 Urine RBC (Auto) 2 Ur Squamous Epith Cells 2 Urine Bacteria Occ H Assessment & Plan (1) Lung mass Status: Acute Priority: High (2) COPD (chronic obstructive pulmonary disease) Status: Chronic Priority: High (3) Tobacco abuse Status: Chronic Priority: High (4) Weakness Status: Acute Priority: High
--- NOTE | 2019-01-21 14:23 | CT ---
Date of service: 01/20/2019 PROCEDURE: CT Chest without contrast HISTORY: lung mass COMPARISON: None available. TECHNIQUE: Contiguous axial images were obtained through the chest without intravenous contrast enhancement. Sagittal and coronal reconstructions were performed. Radiation dose (DLP): 146.14 mGy-cm. This CT exam was performed using one or more of the following dose reduction techniques: Automated exposure control, adjustment of the mA and/or kV according to patient size, and/or use of iterative reconstruction technique. FINDINGS: LUNGS: Centrilobular pulmonary emphysema, predominantly in the upper lobes. Right upper lobe mass, measuring 5.5 x 8.3 by 6.2 cm. The mass has irregular borders. There is direct extension to the right hilum. There is a satellite mass in the right upper lobe measuring 1.4 cm in diameter, with probable desmoplastic reaction between the larger mass and this mass. Ill-defined opacity in the posterior segment right upper lobe, possibly atelectasis due to local bronchial obstruction. There is evidence of right upper lobe volume loss with mild elevation of the minor fissure. There is a subpleural left lower lobe mass measuring 11 mm. This measured 8 mm on prior abdominal/pelvic CT of 02/19/2018. MEDIASTINUM: Unremarkable thoracic aorta. No aneurysm. Normal sized heart. Main pulmonary artery unremarkable. No vascular congestion. There is mediastinal and right hilar lymphadenopathy. Evaluation is limited by the absence of intravenous contrast administration. Probable multinodular thyroid. Correlate with thyroid ultrasound examination. Minimal pericardial effusion. There is atherosclerotic calcification of the thoracic aorta. PLEURA: No pleural fluid. No pneumothorax. BONES: No fracture. No destructive lesion. UPPER ABDOMEN: Large fluid collection partially included in the upper abdomen on the left side, consistent with previously demonstrated likely chronic old subcapsular collection of the left kidney. Coarse pancreatic calcifications consistent with chronic pancreatitis. OTHER FINDINGS: None. IMPRESSION: Large right upper lobe mass with smaller satellite mass. Direct extension to right hilum with mediastinal lymphadenopathy. Enlarging nodule in left lower lobe. Mild right upper lobe volume loss. Centrilobular pulmonary emphysema.
[2019-01-22 08:22] LABS: BASO # 0.1 K/uL (0.0-0.2); BASO % 0.9 % (0.0-2.0); EOS # 0.5 K/uL (0.0-0.7); EOS % 3.8 % (0.0-4.0); HEMOGLOBIN 7.8 g/dL (11.0-16.0); LYMPH # 2.2 K/uL (1.0-4.3); LYMPH % 16.4 % (20.0-40.0); MEAN CELL VOLUME 77.3 fL (81.0-99.0); MEAN CORPUSCULAR HEMOGLOBIN 24.7 pg (27.0-31.0); MEAN CORPUSCULAR HGB CONC 31.9 g/dL (33.0-37.0); MEAN PLATELET VOLUME 7.1 fL (7.2-11.7); MONO # 1.6 K/uL (0.0-0.8); MONO % 11.4 % (0.0-10.0); NEUT # 9.1 K/uL (1.8-7.0); NEUT % 67.5 % (50.0-75.0); RBC 3.16 Mil/uL (3.80-5.20); RED CELL DISTRIBUTION WIDTH 18.7 % (11.5-14.5); WHITE BLOOD COUNT 13.6 K/uL (4.8-10.8)
[2019-01-22 08:40] LABS: ALB/GLOB RATIO 0.9 (1.0-2.1); ALBUMIN 2.9 g/dL (3.5-5.0); ALT/SGPT 12 U/L (9-52); AST/SGOT 14 U/L (14-36); BLOOD UREA NITROGEN 12 mg/dL (7-17); CALCIUM 8.2 mg/dl (8.6-10.4); GFR NON-AFRICAN AMERICAN > 60
[2019-01-22] MEDS: Enoxaparin 40 mg Syringe SC SCH (09:11)
--- NOTE | 2019-01-22 12:44 | CP.PCM.PN ---
Subjective - Date & Time of Evaluation Date of Evaluation: 01/22/19 Time of Evaluation: 12:43 - Subjective Subjective: GEN WEAKNESS CT CHEST LARGE MASS R MID LUNG AND SMALLER LLL CT GUIDED BIOPSY ON MON Objective - Vital Signs/Intake and Output Vital Signs (last 24 hours): Temp Pulse Resp BP Pulse Ox 98.1 F 83 20 121/71 98 01/22/19 08:19 01/22/19 08:19 01/22/19 08:19 01/22/19 08:19 01/22/19 08:19 Intake and Output: 01/22/19 01/22/19 11:59 23:59 Intake Total 480 Balance 480 - Medications Medications: Current Medications Enoxaparin Sodium (Lovenox) 40 mg SC DAILY SHILOH Last Admin: 01/22/19 09:11 Dose: 40 mg Ibuprofen (Motrin Tab) 600 mg PO Q6H PRN PRN Reason: Pain, moderate (4-7) Last Admin: 01/22/19 09:39 Dose: 600 mg Pneumococcal Polyvalent Vaccine (Pneumovax 23 Vaccine) 0.5 ml IM .ONCE ONE Stop: 01/23/19 10:01 - Labs Labs: 01/22/19 08:06 01/22/19 08:06 Assessment and Plan (1) Lung mass Status: Acute (2) Weakness Status: Acute
[2019-01-22 17:33] LABS: HEMOGLOBIN 7.7 g/dL (11.0-16.0); MEAN CELL VOLUME 77.7 fL (81.0-99.0); MEAN CORPUSCULAR HEMOGLOBIN 24.3 pg (27.0-31.0); MEAN CORPUSCULAR HGB CONC 31.2 g/dL (33.0-37.0); MEAN PLATELET VOLUME 7.2 fL (7.2-11.7); RBC 3.16 Mil/uL (3.80-5.20); RED CELL DISTRIBUTION WIDTH 18.9 % (11.5-14.5); WHITE BLOOD COUNT 13.1 K/uL (4.8-10.8)
--- NOTE | 2019-01-22 17:56 | CP.PCM.PN ---
Subjective - Date & Time of Evaluation Date of Evaluation: 01/22/19 Time of Evaluation: 17:56 - Subjective Subjective: Pulmonary follow up, Covering Dr Taylor The Patient was seen and examined at the bedside, Medical records reviewed, and management issues were discussed and formulated with the house staff. Events reviewed Patient sitting comfortable in bed in no apparent distress Patient alert, awake Se still complaining of shortness of breath and mild cough but that is better since admission Adequate saturation 98-100% on 2L nasal cannula Breathing much improved Afebrile Objective - Vital Signs/Intake and Output Vital Signs (last 24 hours): Temp Pulse Resp BP Pulse Ox 98.1 F 82 20 112/66 96 01/22/19 16:00 01/22/19 16:00 01/22/19 16:00 01/22/19 16:00 01/22/19 16:00 Intake and Output: 01/22/19 01/22/19 06:59 18:59 Intake Total 480 Balance 480 - Medications Medications: Current Medications Enoxaparin Sodium (Lovenox) 40 mg SC DAILY SHILOH Last Admin: 01/22/19 09:11 Dose: 40 mg Ibuprofen (Motrin Tab) 600 mg PO Q6H PRN PRN Reason: Pain, moderate (4-7) Last Admin: 01/22/19 09:39 Dose: 600 mg Pneumococcal Polyvalent Vaccine (Pneumovax 23 Vaccine) 0.5 ml IM .ONCE ONE Stop: 01/23/19 10:01 - Labs Labs: 01/22/19 17:21 01/22/19 08:06 - Constitutional Appears: Well - Head Exam Head Exam: ATRAUMATIC, NORMAL INSPECTION, NORMOCEPHALIC - Eye Exam Eye Exam: EOMI, Normal appearance, PERRL Pupil Exam: NORMAL ACCOMODATION, PERRL - ENT Exam ENT Exam: Mucous Membranes Moist, Normal Exam - Neck Exam Neck Exam: Full ROM, Normal Inspection. absent: Lymphadenopathy - Respiratory Exam Respiratory Exam: Clear to Ausculation Bilateral, NORMAL BREATHING PATTERN - Cardiovascular Exam Cardiovascular Exam: REGULAR RHYTHM, +S1, +S2. absent: Murmur Assessment and Plan (1) Lung mass Status: Acute (2) Weakness Status: Acute (3) COPD (chronic obstructive pulmonary disease) Status: Chronic (4) Tobacco abuse Status: Chronic
[2019-01-23 07:50] LABS: BASO # 0.1 K/uL (0.0-0.2); BASO % 0.8 % (0.0-2.0); EOS # 0.6 K/uL (0.0-0.7); EOS % 3.7 % (0.0-4.0); HEMOGLOBIN 7.3 g/dL (11.0-16.0); LYMPH # 2.6 K/uL (1.0-4.3); LYMPH % 16.7 % (20.0-40.0); MEAN CELL VOLUME 77.4 fL (81.0-99.0); MEAN CORPUSCULAR HEMOGLOBIN 24.3 pg (27.0-31.0); MEAN CORPUSCULAR HGB CONC 31.4 g/dL (33.0-37.0); MEAN PLATELET VOLUME 7.2 fL (7.2-11.7); MONO # 1.5 K/uL (0.0-0.8); MONO % 9.6 % (0.0-10.0); NEUT # 10.7 K/uL (1.8-7.0); NEUT % 69.2 % (50.0-75.0); NRBC % 0.1 % (0.0-2.0); RBC 2.99 Mil/uL (3.80-5.20); RED CELL DISTRIBUTION WIDTH 18.9 % (11.5-14.5); WHITE BLOOD COUNT 15.4 K/uL (4.8-10.8)
[2019-01-23 08:19] LABS: ALB/GLOB RATIO 0.9 (1.0-2.1); ALBUMIN 2.7 g/dL (3.5-5.0); ALT/SGPT 15 U/L (9-52); AST/SGOT 15 U/L (14-36); BLOOD UREA NITROGEN 18 mg/dL (7-17); GFR NON-AFRICAN AMERICAN > 60
[2019-01-23] MEDS: Enoxaparin 40 mg Syringe SC SCH (09:38)
[2019-01-23] MEDS ORDERED: Pneumococcal 23-Valent Vaccine IM ONE (10:00)
[2019-01-23] MEDS ORDERED: Albuterol-Ipratrop 3 mg / 0.5 (3 ml) UD INH PRN (12:27)
--- NOTE | 2019-01-23 13:10 | CP.PCM.PN ---
Subjective - Date & Time of Evaluation Date of Evaluation: 01/23/19 Time of Evaluation: 13:10 - Subjective Subjective: THE Objective - Vital Signs/Intake and Output Vital Signs (last 24 hours): Temp Pulse Resp BP Pulse Ox 98.3 F 85 20 125/78 96 01/23/19 08:29 01/23/19 08:29 01/23/19 08:29 01/23/19 08:29 01/23/19 08:29 - Medications Medications: Current Medications Albuterol/Ipratropium (Duoneb 3 Mg/0.5 Mg (3 Ml) Ud) 3 ml INH Q6 PRN PRN Reason: Shortness of Breath Enoxaparin Sodium (Lovenox) 40 mg SC DAILY SHILOH Last Admin: 01/23/19 09:38 Dose: 40 mg Ibuprofen (Motrin Tab) 600 mg PO Q6H PRN PRN Reason: Pain, moderate (4-7) Last Admin: 01/22/19 09:39 Dose: 600 mg - Labs Labs: 01/23/19 07:11 01/23/19 07:11 Assessment and Plan (1) Lung mass Status: Acute (2) Weakness Status: Acute
--- NOTE | 2019-01-23 17:49 | CP.PCM.PN ---
Subjective - Date & Time of Evaluation Date of Evaluation: 01/23/19 Time of Evaluation: 17:43 - Subjective Subjective: Pulmonary follow up, Covering Dr Taylor The Patient was seen and examined at the bedside, Medical records reviewed, and management issues were discussed and formulated with the house staff. Events reviewed Patient sitting comfortable in bed in no apparent distress Alert, awake Denies shortness of breath, chest pain, cough or hemoptysis ROS pos for weigh loss Adequate saturation 98-100% on 2L nasal cannula Breathing much improved Afebrile Patient is n.p.o. after midnight for CT scan guided biopsy of the large highly suspicious right upper lobe lesion Continue Neb treatment Coags sent and we will hold a.m. dose of SQ anticoagulation (she is on Lovenox for DVT prophylaxis) Objective - Vital Signs/Intake and Output Vital Signs (last 24 hours): Temp Pulse Resp BP Pulse Ox 97.7 F 86 20 123/72 98 01/23/19 17:18 01/23/19 17:18 01/23/19 17:18 01/23/19 17:18 01/23/19 15:00 Intake and Output: 01/23/19 01/23/19 06:59 18:59 Intake Total 0 Balance 0 - Medications Medications: Current Medications Albuterol/Ipratropium (Duoneb 3 Mg/0.5 Mg (3 Ml) Ud) 3 ml INH Q6 PRN PRN Reason: Shortness of Breath Enoxaparin Sodium (Lovenox) 40 mg SC DAILY SHILOH Last Admin: 01/23/19 09:38 Dose: 40 mg Ibuprofen (Motrin Tab) 600 mg PO Q6H PRN PRN Reason: Pain, moderate (4-7) Last Admin: 01/22/19 09:39 Dose: 600 mg - Labs Labs: 01/23/19 07:11 01/23/19 07:11 Assessment and Plan (1) Lung mass Status: Acute (2) Weakness Status: Acute (3) COPD (chronic obstructive pulmonary disease) Status: Chronic (4) Tobacco abuse Status: Chronic
[2019-01-24 08:29] LABS: INR 1.1; PROTHROMBIN TIME 12.5 SECONDS (9.7-12.2)
[2019-01-24] MEDS: Enoxaparin 40 mg Syringe SC SCH (09:38)
--- NOTE | 2019-01-24 11:16 | CP.PCM.PN ---
Subjective - Date & Time of Evaluation Date of Evaluation: 01/24/19 Time of Evaluation: 11:15 - Subjective Subjective: AWAITING CT GUIDED BIOPSY H/H DOWN , RECEIVED 1PC CONT. PRESENT THERAPY Objective - Vital Signs/Intake and Output Vital Signs (last 24 hours): Temp Pulse Resp BP Pulse Ox 97.2 F L 96 H 20 143/90 97 01/24/19 08:00 01/24/19 08:00 01/24/19 08:00 01/24/19 08:00 01/24/19 08:00 Intake and Output: 01/23/19 01/24/19 23:59 11:59 Intake Total 950 Balance 950 - Medications Medications: Current Medications Acetaminophen (Tylenol 325mg Tab) 650 mg PO Q6 PRN PRN Reason: Other Albuterol/Ipratropium (Duoneb 3 Mg/0.5 Mg (3 Ml) Ud) 3 ml INH Q6 PRN PRN Reason: Shortness of Breath Enoxaparin Sodium (Lovenox) 40 mg SC DAILY SHILOH Last Admin: 01/23/19 09:38 Dose: 40 mg Ibuprofen (Motrin Tab) 600 mg PO Q6H PRN PRN Reason: Pain, moderate (4-7) Last Admin: 01/22/19 09:39 Dose: 600 mg - Labs Labs: 01/23/19 07:11 01/23/19 07:11 PT 12.5 SECONDS (9.7-12.2) H 01/24/19 08:17 INR 1.1 01/24/19 08:17 APTT 34 SECONDS (21-34) 01/24/19 08:17 Assessment and Plan (1) Lung mass Status: Acute (2) Weakness Status: Acute
[2019-01-24] MEDS: guaiFENesin 100 mg/5 ml Syrup UD PO PRN (16:32)
[2019-01-24 16:57] LABS: MEAN CELL VOLUME 77.6 fL (81.0-99.0); MEAN CORPUSCULAR HEMOGLOBIN 24.5 pg (27.0-31.0); MEAN CORPUSCULAR HGB CONC 31.6 g/dL (33.0-37.0); MEAN PLATELET VOLUME 6.7 fL (7.2-11.7); RBC 3.66 Mil/uL (3.80-5.20); RED CELL DISTRIBUTION WIDTH 19.5 % (11.5-14.5); WHITE BLOOD COUNT 18.2 K/uL (4.8-10.8)
--- NOTE | 2019-01-24 17:27 | CP.PCM.PN ---
Subjective - Date & Time of Evaluation Date of Evaluation: 01/24/19 Time of Evaluation: 17:26 - Subjective Subjective: Pulmonary follow up, Covering Dr Taylor The Patient was seen and examined at the bedside, Medical records reviewed, and management issues were discussed and formulated with the house staff. Events reviewed Patient sitting comfortable in bed in no apparent distress Alert, awake Denies shortness of breath, chest pain, cough or hemoptysis ROS pos for weigh loss Adequate saturation 98-100% on 2L nasal cannula Breathing much improved Discussed with Dr Diane, intervention radiology Patient is n.p.o. after midnight for CT scan guided biopsy of the large highly suspicious right upper lobe lesion Continue Neb treatment Coags sent and we will hold a.m. dose of SQ anticoagulation (she is on Lovenox for DVT prophylaxis) Patient has been having low grade fever and now 102.7 last night, also having productive cough with whitish/yellow sputum, on the CT scan of the chest is possibility of air bronchogram signifying postobstructive pneumonia, discussed with the primary team and was starting the patient on intravenous antibiotic, consideration for infection disease consult Objective - Vital Signs/Intake and Output Vital Signs (last 24 hours): Temp Pulse Resp BP Pulse Ox 98.8 F 91 H 20 143/79 97 01/24/19 15:00 01/24/19 15:00 01/24/19 15:00 01/24/19 15:00 01/24/19 15:00 Intake and Output: 01/24/19 01/24/19 06:59 18:59 Intake Total 950 Balance 950 - Medications Medications: Current Medications Acetaminophen (Tylenol 325mg Tab) 650 mg PO Q6 PRN PRN Reason: Other Albuterol/Ipratropium (Duoneb 3 Mg/0.5 Mg (3 Ml) Ud) 3 ml INH Q6 PRN PRN Reason: Shortness of Breath Enoxaparin Sodium (Lovenox) 40 mg SC DAILY SHILOH Last Admin: 01/24/19 09:38 Dose: Not Given Guaifenesin (Robitussin) 100 mg PO Q6H PRN PRN Reason: Cough Last Admin: 01/24/19 16:32 Dose: 100 mg Ibuprofen (Motrin Tab) 600 mg PO Q6H PRN PRN Reason: Pain, moderate (4-7) Last Admin: 03/09/19 09:39 Dose: 600 mg - Labs Labs: 01/24/19 16:53 01/23/19 07:11 PT 12.5 SECONDS (9.7-12.2) H 01/24/19 08:17 INR 1.1 01/24/19 08:17 APTT 34 SECONDS (21-34) 01/24/19 08:17 - Constitutional Appears: Well, Non-toxic - Head Exam Head Exam: ATRAUMATIC, NORMAL INSPECTION - Eye Exam Eye Exam: EOMI, Normal appearance. absent: Conjunctival injection - Neck Exam Neck Exam: Full ROM - Respiratory Exam Respiratory Exam: Decreased Breath Sounds, Rhonchi. absent: Accessory Muscle Use, Chest Wall Tenderness - Cardiovascular Exam Cardiovascular Exam: REGULAR RHYTHM, +S1, +S2. absent: Murmur - Neurological Exam Neurological Exam: Alert, Awake, Oriented x3 Assessment and Plan (1) Postobstructive pneumonia Status: Acute (2) Lung mass Status: Acute (3) Weakness Status: Acute (4) COPD (chronic obstructive pulmonary disease) Status: Chronic (5) Tobacco abuse Status: Chronic
--- NOTE | 2019-01-24 18:32 | CARD ---
APPROVED REPORT Date of service: 01/20/2019 EKG Measurement Heart [id number] <Conclusion> Normal sinus rhythm Normal ECG
[2019-01-25 07:41] LABS: INR 1.3; PROTHROMBIN TIME 13.9 SECONDS (9.7-12.2)
[2019-01-25 07:47] LABS: BASO # 0.2 K/uL (0.0-0.2); BASO % 1.1 % (0.0-2.0); EOS # 0.5 K/uL (0.0-0.7); EOS % 3.1 % (0.0-4.0); HEMOGLOBIN 8.9 g/dL (11.0-16.0); LYMPH % 11.9 % (20.0-40.0); MEAN CELL VOLUME 78.8 fL (81.0-99.0); MEAN CORPUSCULAR HEMOGLOBIN 24.9 pg (27.0-31.0); MEAN CORPUSCULAR HGB CONC 31.6 g/dL (33.0-37.0); MEAN PLATELET VOLUME 7.1 fL (7.2-11.7); MONO # 1.5 K/uL (0.0-0.8); MONO % 9.2 % (0.0-10.0); NEUT # 12.6 K/uL (1.8-7.0); NEUT % 74.7 % (50.0-75.0); RBC 3.56 Mil/uL (3.80-5.20); RED CELL DISTRIBUTION WIDTH 19.5 % (11.5-14.5); WHITE BLOOD COUNT 16.9 K/uL (4.8-10.8)
[2019-01-25 07:52] LABS: ALB/GLOB RATIO 0.9 (1.0-2.1); ALT/SGPT 14 U/L (9-52); AST/SGOT 35 U/L (14-36); BLOOD UREA NITROGEN 16 mg/dL (7-17); CALCIUM 8.4 mg/dl (8.6-10.4); GFR NON-AFRICAN AMERICAN > 60
[2019-01-25] MEDS ORDERED: Midazolam 2 MG/2 ML VIAL ONE (09:15)
[2019-01-25] MEDS: cefTRIAXone IV 1 gm in Dextros 50 ML IVPB SCH (10:26)
--- NOTE | 2019-01-25 10:42 | PCM.SURG1 ---
Surgeon's Initial Post Op Note - Surgeon's Notes Surgeon: Higinio Diane MD Anime Artist: NONE Type of Anesthesia: IV Sedation Pre-Operative Diagnosis: Lung mass Operative Findings: CT showed an 8 cm right lung mass Post-Operative Diagnosis: Lung mass Operation Performed: CT guided core biopsy of right lung mass Specimen/Specimens Removed: 20 g core x 2 Estimated Blood Loss: EBL {In ML}: 0 Blood Products Given: N/A Drains Used: No Drains Post-Op Condition: Fair Date of Surgery/Procedure: 01/25/19 Time of Surgery/Procedure: 10:00
--- NOTE | 2019-01-25 10:44 | CT ---
PROCEDURE: Date of procedure: 01/25/2019 Procedure: 1. CT-guided lung mass biopsy, CPT [address] Guidance for biopsy, [address] Radiation: 232.33 mGy-cm Medications: The patient was sedated by anesthesiologist along with physiologic monitoring. HISTORY: Right lung mass TECHNIQUE: Following informed consent, the Pt's chest was marked. The Pt was placed supine on the CT table and procedure time out was performed. A noncontrast CT scan was performed. Noncontrast CT scan confirmed the presence of a 8 cm mass. A skin localizer was placed on the patient's right flank and a repeat CT scan was performed. The skin was marked, prepped, and draped in the usual sterile fashion. After the skin was anesthetized with lidocaine and the patient sedated by the anesthesiologist, a 20 gauge core needle was advanced percutaneously under direct CT guidance into the mass. Upon confirmation of needle position, two 20-gauge core specimens were obtained and sent for routine pathology. The needle was removed and a xeroform dressing was applied. A post biopsy CT scan showed no pneumothorax. IMPRESSION: CT guided core biopsy right lung mass. There were no immediate complications.
--- NOTE | 2019-01-25 12:10 | CP.PCM.PN ---
Subjective - Date & Time of Evaluation Date of Evaluation: 01/25/19 Time of Evaluation: 12:10 - Subjective Subjective: S/P LUNG BIOPSY AFEBRILE ON IV AB F/U PATHOLOGY POST TRANSFUSION HG 8.9 Objective - Vital Signs/Intake and Output Vital Signs (last 24 hours): Temp Pulse Resp BP Pulse Ox 97.8 F 88 18 123/73 97 01/25/19 07:35 01/25/19 07:35 01/25/19 07:35 01/25/19 07:35 01/25/19 07:35 - Medications Medications: Current Medications Acetaminophen (Tylenol 325mg Tab) 650 mg PO Q6 PRN PRN Reason: Other Last Admin: 01/24/19 18:14 Dose: 650 mg Albuterol/Ipratropium (Duoneb 3 Mg/0.5 Mg (3 Ml) Ud) 3 ml INH Q6 PRN PRN Reason: Shortness of Breath Enoxaparin Sodium (Lovenox) 40 mg SC DAILY SHILOH Last Admin: 01/24/19 09:38 Dose: Not Given Guaifenesin (Robitussin) 100 mg PO Q6H PRN PRN Reason: Cough Last Admin: 01/24/19 16:32 Dose: 100 mg Ceftriaxone Sodium (Rocephin Iv 1 Gm Duplex) 50 mls @ 100 mls/hr IVPB DAILY SHILOH; Protocol Last Admin: 01/25/19 10:26 Dose: 100 mls/hr Ibuprofen (Motrin Tab) 600 mg PO Q6H PRN PRN Reason: Pain, moderate (4-7) Last Admin: 01/22/19 09:39 Dose: 600 mg - Labs Labs: 01/25/19 07:21 01/25/19 07:21 PT 13.9 SECONDS (9.7-12.2) H 01/25/19 07:21 INR 1.3 01/25/19 07:21 APTT 34 SECONDS (21-34) 01/24/19 08:17 Assessment and Plan (1) Lung mass Status: Acute (2) Weakness Status: Acute
[2019-01-25] MEDS: guaiFENesin 100 mg/5 ml Syrup UD PO PRN (15:42)
--- NOTE | 2019-01-25 16:42 | CP.PCM.PN ---
Subjective - Date & Time of Evaluation Date of Evaluation: 01/25/19 Time of Evaluation: 19:00 - Subjective Subjective: Pulmonary follow up, Covering Dr Taylor The Patient was seen and examined at the bedside, Medical records reviewed, and management issues were discussed and formulated with the house staff. Events reviewed Patient sitting comfortable in bed in no apparent distress Alert, awake Denies shortness of breath, chest pain, cough or hemoptysis ROS pos for weigh loss Adequate saturation 98-100% on 2L nasal cannula Patient has been having low grade fever and was started on intravenous antibiotic, Still have fever spikes but lower Improved productive cough with whitish/yellow sputum Breathing much improved 12/[address] scan guided biopsy of the large highly suspicious right upper lobe lesion Tolerated the procedure well Continue Neb treatment Ceftriaxone 1 Gm IVPB DAILY SHILOH Follow the Biopsy pathology report Objective - Vital Signs/Intake and Output Vital Signs (last 24 hours): Temp Pulse Resp BP Pulse Ox 100.3 F H 95 H 20 122/73 98 01/25/19 15:42 01/25/19 15:00 01/25/19 15:00 01/25/19 15:00 01/25/19 15:00 Intake and Output: 01/25/19 01/25/19 06:59 18:59 Intake Total 200 300 Balance 200 300 - Medications Medications: Current Medications Acetaminophen (Tylenol 325mg Tab) 650 mg PO Q6 PRN PRN Reason: Other Last Admin: 01/25/19 15:42 Dose: 650 mg Albuterol/Ipratropium (Duoneb 3 Mg/0.5 Mg (3 Ml) Ud) 3 ml INH Q6 PRN PRN Reason: Shortness of Breath Enoxaparin Sodium (Lovenox) 40 mg SC DAILY SHILOH Last Admin: 01/24/19 09:38 Dose: Not Given Guaifenesin (Robitussin) 100 mg PO Q6H PRN PRN Reason: Cough Last Admin: 01/24/19 16:32 Dose: 100 mg Ceftriaxone Sodium (Rocephin Iv 1 Gm Duplex) 50 mls @ 100 mls/hr IVPB DAILY SHILOH; Protocol Last Admin: 01/25/19 10:26 Dose: 100 mls/hr Ibuprofen (Motrin Tab) 600 mg PO Q6H PRN PRN Reason: Pain, moderate (4-7) Last Admin: 01/22/19 09:39 Dose: 600 mg - Labs Labs: 01/25/19 07:21 01/25/19 07:21 PT 13.9 SECONDS (9.7-12.2) H 01/25/19 07:21 INR 1.3 01/25/19 07:21 APTT 34 SECONDS (21-34) 01/24/19 08:17 - Constitutional Appears: Well, Non-toxic - Head Exam Head Exam: ATRAUMATIC, NORMAL INSPECTION - Eye Exam Eye Exam: EOMI, Normal appearance Pupil Exam: PERRL - ENT Exam ENT Exam: Mucous Membranes Moist - Neck Exam Neck Exam: Full ROM - Respiratory Exam Respiratory Exam: Clear to Ausculation Bilateral, NORMAL BREATHING PATTERN - Cardiovascular Exam Cardiovascular Exam: REGULAR RHYTHM, +S1, +S2. absent: Murmur - GI/Abdominal Exam GI & Abdominal Exam: Soft, Normal Bowel Sounds. absent: Tenderness Assessment and Plan (1) Postobstructive pneumonia Status: Acute (2) Lung mass Status: Acute (3) Weakness Status: Acute (4) COPD (chronic obstructive pulmonary disease) Status: Chronic (5) Tobacco abuse Status: Chronic
[2019-01-26] MEDS: Enoxaparin 40 mg Syringe SC SCH (10:16)
[2019-01-26] MEDS: cefTRIAXone IV 1 gm in Dextros 50 ML IVPB SCH (10:16)
--- NOTE | 2019-01-26 12:02 | CP.PCM.PN ---
Subjective - Date & Time of Evaluation Date of Evaluation: 01/26/19 Time of Evaluation: 12:01 - Subjective Subjective: S/P LUNG BIOPSY WILL GET ONCOLOGY EVAL Objective - Vital Signs/Intake and Output Vital Signs (last 24 hours): Temp Pulse Resp BP Pulse Ox 97.9 F 89 18 125/77 97 01/26/19 07:20 01/26/19 07:20 01/26/19 07:20 01/26/19 07:20 01/26/19 07:20 - Medications Medications: Current Medications Acetaminophen (Tylenol 325mg Tab) 650 mg PO Q6 PRN PRN Reason: Other Last Admin: 01/25/19 15:42 Dose: 650 mg Albuterol/Ipratropium (Duoneb 3 Mg/0.5 Mg (3 Ml) Ud) 3 ml INH Q6 PRN PRN Reason: Shortness of Breath Enoxaparin Sodium (Lovenox) 40 mg SC DAILY SHILOH Last Admin: 01/26/19 10:16 Dose: 40 mg Guaifenesin (Robitussin) 100 mg PO Q6H PRN PRN Reason: Cough Last Admin: 01/25/19 15:42 Dose: 100 mg Ceftriaxone Sodium (Rocephin Iv 1 Gm Duplex) 50 mls @ 100 mls/hr IVPB DAILY SHILOH; Protocol Last Admin: 01/26/19 10:16 Dose: 100 mls/hr Ibuprofen (Motrin Tab) 600 mg PO Q6H PRN PRN Reason: Pain, moderate (4-7) Last Admin: 01/22/19 09:39 Dose: 600 mg - Labs Labs: 01/25/19 07:21 01/25/19 07:21 PT 13.9 SECONDS (9.7-12.2) H 01/25/19 07:21 INR 1.3 01/25/19 07:21 APTT 34 SECONDS (21-34) 01/24/19 08:17 Assessment and Plan (1) Lung mass Status: Acute (2) Weakness Status: Acute
--- NOTE | 2019-01-26 15:09 | CP.PCM.PN ---
Subjective - Date & Time of Evaluation Date of Evaluation: 01/26/19 Time of Evaluation: 20:00 - Subjective Subjective: Pulmonary follow up, Covering Dr Taylor The Patient was seen and examined at the bedside, Medical records reviewed, and management issues were discussed and formulated with the house staff. Events reviewed Patient sitting comfortable in bed in no apparent distress Alert, awake Denies shortness of breath, chest pain, cough or hemoptysis ROS pos for weigh loss Adequate saturation 98-100% on 2L nasal cannula Patient has been having low grade fever and was started on intravenous antibiotic, Still have fever spikes but lower Improved productive cough with whitish/yellow sputum Breathing much improved 12/[address] scan guided biopsy of the large highly suspicious right upper lobe lesion Tolerated the procedure well Continue Neb treatment Ceftriaxone 1 Gm IVPB DAILY SHILOH Follow the Biopsy pathology report, Still pending, Once malignancy confirmed, will need oncology evaluation, metastatic work up depend oin the type of lung cancer small cell Vs non small cell I highly doubt that patient will be a surgical candidate considering borderline functional status and extent of the tumor on the CT scan, Meantime I will order full pulmonary function test was lung volume spirometry and diffusion capacity to further evaluate her baseline functional capacity and see postoperative predictive FEV1, Objective - Vital Signs/Intake and Output Vital Signs (last 24 hours): Temp Pulse Resp BP Pulse Ox 97.9 F 89 18 125/77 97 01/26/19 07:20 01/26/19 07:20 01/26/19 07:20 01/26/19 07:20 01/26/19 07:20 Intake and Output: 01/26/19 01/26/19 06:59 18:59 Intake Total 600 Balance 600 - Medications Medications: Current Medications Acetaminophen (Tylenol 325mg Tab) 650 mg PO Q6 PRN PRN Reason: Other Last Admin: 01/25/19 15:42 Dose: 650 mg Albuterol/Ipratropium (Duoneb 3 Mg/0.5 Mg (3 Ml) Ud) 3 ml INH Q6 PRN PRN Reason: Shortness of Breath Enoxaparin Sodium (Lovenox) 40 mg SC DAILY SHILOH Last Admin: 01/26/19 10:16 Dose: 40 mg Guaifenesin (Robitussin) 100 mg PO Q6H PRN PRN Reason: Cough Last Admin: 01/25/19 15:42 Dose: 100 mg Ceftriaxone Sodium (Rocephin Iv 1 Gm Duplex) 50 mls @ 100 mls/hr IVPB DAILY SHILOH; Protocol Last Admin: 01/26/19 10:16 Dose: 100 mls/hr Ibuprofen (Motrin Tab) 600 mg PO Q6H PRN PRN Reason: Pain, moderate (4-7) Last Admin: 01/22/19 09:39 Dose: 600 mg - Labs Labs: 01/25/19 07:21 01/25/19 07:21 PT 13.9 SECONDS (9.7-12.2) H 01/25/19 07:21 INR 1.3 01/25/19 07:21 APTT 34 SECONDS (21-34) 01/24/19 08:17 - Constitutional Appears: Well, Non-toxic - Head Exam Head Exam: ATRAUMATIC, NORMAL INSPECTION - Eye Exam Eye Exam: EOMI Pupil Exam: NORMAL ACCOMODATION, PERRL - Respiratory Exam Respiratory Exam: Clear to Ausculation Bilateral, NORMAL BREATHING PATTERN - Cardiovascular Exam Cardiovascular Exam: REGULAR RHYTHM - GI/Abdominal Exam GI & Abdominal Exam: Soft, Normal Bowel Sounds. absent: Tenderness - Back Exam Back Exam: NORMAL INSPECTION - Neurological Exam Neurological Exam: Alert, Awake, CN II-XII Intact, Normal Gait, Oriented x3 Assessment and Plan (1) Postobstructive pneumonia Status: Acute (2) Lung mass Status: Acute (3) Weakness Status: Acute (4) COPD (chronic obstructive pulmonary disease) Status: Chronic (5) Tobacco abuse Status: Chronic
--- NOTE | 2019-01-26 22:15 | CP.PCM.CON ---
History of Present Illness - History of Present Illness History of Present Illness: 58 year old female with a history of tobacco abuse, presenting with debility and found to have a lung mass s/p percutaneous biopsy, diagnosed with lung adenocarcinoma. The patient notes to progressive fatigue, dyspnea with exertion, and unintentional weightloss. She feels her appetite has diminished which led to her weightloss over the past [address] scan revealed a right upper lobe mass, mediastinal lymphadenopathy and contralateral enlarging pleural based nodule. Past medical history: single functioning kidney, tobacco abuse Past surgical history: Tubal ligation Family history: Denies hematologic and oncologic problems Social history: 1ppd x 40 years Allergies: NKA Review of systems: All remaining review of systems including HEENT, cardiovascular, respiratory, gastrointestinal, genitourinary, musculoskeletal, dermatologic, neurologic, and psychiatric are negative unless mentioned in the HPI. Past Patient History - Infectious Disease Hx of Infectious Diseases: None - Past Medical History & Family History Past Medical History?: Yes - Past Social History Smoking Status: Heavy Smoker > 10 Cigarettes Daily - CARDIAC Hx Cardiac Disorders: No - PULMONARY Hx Respiratory Disorders: No - NEUROLOGICAL Hx Neurological Disorder: No - HEENT Hx HEENT Problems: No - RENAL Hx Chronic Kidney Disease: Yes Hx Renal Failure: Yes Other/Comment: kidney stent - ENDOCRINE/METABOLIC Hx Endocrine Disorders: Yes Hx Diabetes Mellitus Type 2: Yes - HEMATOLOGICAL/ONCOLOGICAL Hx Blood Disorders: No - INTEGUMENTARY Hx Dermatological Problems: No - MUSCULOSKELETAL/RHEUMATOLOGICAL Hx Musculoskeletal Disorders: No Hx Falls: No - GASTROINTESTINAL Hx Gastrointestinal Disorders: No Hx Pancreatitis: Yes - GENITOURINARY/GYNECOLOGICAL Hx Genitourinary Disorders: No - PSYCHIATRIC Hx Psychophysiologic Disorder: No Hx Substance Use: No - SURGICAL HISTORY Hx Surgeries: Yes Other/Comment: Kidney Stents - ANESTHESIA Hx Anesthesia: Yes Hx Anesthesia Reactions: No Hx Malignant Hyperthermia: No Meds Allergies/Adverse Reactions: Allergies Allergy/AdvReac Type Severity Reaction Status Date / Time No Known Allergies Allergy Verified 01/20/19 18:21 - Medications Medications: Current Medications Acetaminophen (Tylenol 325mg Tab) 650 mg PO Q6 PRN PRN Reason: Other Last Admin: 01/26/19 20:24 Dose: 650 mg Albuterol/Ipratropium (Duoneb 3 Mg/0.5 Mg (3 Ml) Ud) 3 ml INH Q6 PRN PRN Reason: Shortness of Breath Enoxaparin Sodium (Lovenox) 40 mg SC DAILY SHILOH Last Admin: 01/26/19 10:16 Dose: 40 mg Guaifenesin (Robitussin) 100 mg PO Q6H PRN PRN Reason: Cough Last Admin: 01/25/19 15:42 Dose: 100 mg Ceftriaxone Sodium (Rocephin Iv 1 Gm Duplex) 50 mls @ 100 mls/hr IVPB DAILY SHILOH; Protocol Last Admin: 01/26/19 10:16 Dose: 100 mls/hr Ibuprofen (Motrin Tab) 600 mg PO Q6H PRN PRN Reason: Pain, moderate (4-7) Last Admin: 01/22/19 09:39 Dose: 600 mg Physical Exam - Head Exam Head Exam: ATRAUMATIC - Eye Exam Eye Exam: Normal appearance - ENT Exam ENT Exam: Mucous Membranes Dry - Respiratory Exam Respiratory Exam: Decreased Breath Sounds - Cardiovascular Exam Cardiovascular Exam: +S1, +S2 - GI/Abdominal Exam GI & Abdominal Exam: Normal Bowel Sounds - Neurological Exam Neurological exam: Oriented x3 - Psychiatric Exam Psychiatric exam: Normal Affect, Normal Mood - Skin Skin Exam: Warm Results - Vital Signs Recent Vital Signs: Last Vital Signs Temp 98.6 F 01/26/19 15:00 Pulse 90 01/26/19 15:00 Resp 20 01/26/19 15:00 BP 133/75 01/26/19 15:00 Pulse Ox 98 01/26/19 15:00 - Labs Result Diagrams: 01/25/19 07:21 01/25/19 07:21 Assessment & Plan (1) Lung cancer Assessment and Plan: will check MRI brain and CT A/P to complete staging contralateral lung nodule concerning for metastatic disease outpatient treatment Status: Acute (2) Anemia Assessment and Plan: retic count, b12, folate, ferritin, FOBT, hgb electropheresis to further characterize Status: Acute (3) Leukocytosis Assessment and Plan: on antibiotics may have reactive component from malignancy Thank you for this interesting consult. Status: Acute
[2019-01-27] MEDS ORDERED: Iohexol 300 100 ML IJ ONE (08:15)
[2019-01-27] MEDS: cefTRIAXone IV 1 gm in Dextros 50 ML IVPB SCH (09:49)
[2019-01-27] MEDS: Enoxaparin 40 mg Syringe SC SCH (09:49)
[2019-01-27] MEDS ORDERED: Iohexol 240 (50 ml) PO ONE ×2 (10:00→10:30)
--- NOTE | 2019-01-27 12:22 | CP.PCM.PN ---
Subjective - Date & Time of Evaluation Date of Evaluation: 01/27/19 Time of Evaluation: 12:22 - Subjective Subjective: CLINICALLY NO NEW FINDINGS BIOPSY , [facility]. [facility] Objective - Vital Signs/Intake and Output Vital Signs (last 24 hours): Temp Pulse Resp BP Pulse Ox 98.4 F 86 20 127/79 97 01/27/19 07:40 01/27/19 07:40 01/27/19 07:40 01/27/19 07:40 01/27/19 07:40 - Medications Medications: Current Medications Acetaminophen (Tylenol 325mg Tab) 650 mg PO Q6 PRN PRN Reason: Other Last Admin: 01/26/19 20:24 Dose: 650 mg Albuterol/Ipratropium (Duoneb 3 Mg/0.5 Mg (3 Ml) Ud) 3 ml INH Q6 PRN PRN Reason: Shortness of Breath Enoxaparin Sodium (Lovenox) 40 mg SC DAILY SHILOH Last Admin: 01/27/19 09:49 Dose: 40 mg Guaifenesin (Robitussin) 100 mg PO Q6H PRN PRN Reason: Cough Last Admin: 01/25/19 15:42 Dose: 100 mg Ceftriaxone Sodium (Rocephin Iv 1 Gm Duplex) 50 mls @ 100 mls/hr IVPB DAILY SHILOH; Protocol Last Admin: 01/27/19 09:49 Dose: 100 mls/hr Ibuprofen (Motrin Tab) 600 mg PO Q6H PRN PRN Reason: Pain, moderate (4-7) Last Admin: 01/22/19 09:39 Dose: 600 mg - Labs Labs: 01/25/19 07:21 01/25/19 07:21 PT 13.9 SECONDS (9.7-12.2) H 01/25/19 07:21 INR 1.3 01/25/19 07:21 APTT 34 SECONDS (21-34) 01/24/19 08:17 Assessment and Plan (1) Lung mass Status: Acute (2) Weakness Status: Acute
[2019-01-27] MEDS ORDERED: Gadodiamide 287 MG/ML VIAL (15ML) IV ONE (14:36)
--- NOTE | 2019-01-27 15:25 | CT ---
PROCEDURE: CT Abdomen and Pelvis with oral and IV contrast. HISTORY: lung cancer staging COMPARISON: CT chest without contrast performed 01/20/19, CT abdomen and pelvis with contrast performed 02/19/18 TECHNIQUE: Contiguous axial images of the abdomen and pelvis. Oral and IV contrast was administered. Coronal and Sagittal reformats generated and reviewed. Contrast dose: 100 mL Omnipaque 300 IV Radiation dose: Total exam DLP = 409.29 mGy-cm. This CT exam was performed using one or more of the following dose reduction techniques: Automated exposure control, adjustment of the mA and/or kV according to patient size, and/or use of iterative reconstruction technique. FINDINGS: LOWER THORAX: Left lower lobe atelectasis. No visible pleural effusion or pneumothorax. Partially imaged mass measuring approximately 3.2 x 4.5 cm on coronal image 45, within the left atrium. Partially imaged pericardial effusion. Dense atherosclerotic calcifications of the aorta. LIVER: Hepatomegaly. 1.8 x 1.7 cm right hepatic lobe enhancing focus within the right hepatic lobe (series 3, image 37). GALLBLADDER AND BILE DUCTS: Unremarkable. PANCREAS: Innumerable coarse pancreatic calcifications suggest chronic pancreatitis. Pancreatic duct appears dilated and ectatic measuring up to approximately 7 mm in diameter. SPLEEN: Unremarkable. ADRENALS: Left adrenal gland was not visualized. Right adrenal gland appears grossly unremarkable. KIDNEYS AND URETERS: 2 large low-attenuation fluid collections which appears subcapsular and compressed/displaced portions of the kidney. Suspect chronic serous collection. Too small to characterize right renal hypodensities; statistically likely cysts. BLADDER: The urinary bladder appears unremarkable. REPRODUCTIVE: Uterus is present and contains coarse calcifications consistent with degenerating fibroids. APPENDIX: The appendix appears within normal limits of caliber. No secondary signs of acute appendicitis. BOWEL: The stomach is nondistended. The bowel loops appear within normal limits of caliber without evidence of intestinal obstruction. Moderate constipation. PERITONEUM: No significant free fluid. No definite free air. LYMPH NODES: No bulky lymphadenopathy identified. VASCULATURE: No aortic aneurysm. Atherosclerotic calcifications of the aorta. BONES: Mild degenerative changes. OTHER FINDINGS: None. IMPRESSION: Partially imaged well-defined large left ventricular mass/filling defect, indeterminate. Considerations include malignant neoplasm, thrombus, less likely myxoma as interval development since 02/19/18. Recommend further evaluation with contrast enhanced chest CT if indicated or echocardiogram. Indeterminate enhancing focus within the right hepatic lobe measures approximately 1.8 x 1.7 cm, worrisome for metastases. Hepatomegaly. Large left perinephric fluid collections with compressed/to place renal parenchyma; suspected chronic fluid collections. Innumerable pancreatic calcifications consistent with chronic pancreatitis. Dilated pancreatic duct. Correlate for history of chronic pancreatitis. Partially imaged pericardial fluid. Additional findings as above.
--- NOTE | 2019-01-27 16:27 | MRI ---
Date of service: 01/27/2019 PROCEDURE: MRI BRAIN WITH AND WITHOUT CONTRAST HISTORY: lung cancer staging COMPARISON: None available. TECHNIQUE: Multiplanar, multisequence MR images of the brain were obtained with and without intravenous contrast enhancement. FINDINGS: HEMORRHAGE: None DWI: No evidence of an acute or early subacute infarction. Punctate areas of restricted diffusion in 2-3 foci at the bilateral cerebral hemispheres including bilateral frontal lobes and right frontal parietal junction likely reflect metastatic disease rather than infarction. BRAIN PARENCHYMA: There is a lesion, slightly diminished with T1 weighting and increased in signal under long TR weighting at the right caudate head with heterogeneous enhancement compatible with metastasis. It measures 1.0 x 0.5 cm with a punctate area of enhancement corresponding to similar signal changes at the left frontal lobe and 2 foci seen in image 10 series 13 as well as imaged 8, same series. A similar punctate enhancing focus seen at the right frontoparietal junction near the vertex with a ring-enhancing lesion at the right parietal lobe. Finally, a punctate area of enhancement is seen at the left cerebellar hemisphere. No mass effect. Diffuse cerebral atrophy chronic microangiopathy are identified which appear age-appropriate. One or 2 chronic lacunes is identified at the superior right basal ganglia. Additional chronic lacune is seen at the superior left cerebellum. ENHANCEMENT: Seen enhancement characteristics described above. VENTRICLES: Unremarkable. No hydrocephalus. CRANIUM: No suspicious cranial finding. Incidental note is made of a sebaceous cyst at the right occipital scalp 1.6 cm. ORBITS: Grossly unremarkable. PARANASAL SINUSES/MASTOIDS: Clear VASCULAR SYSTEM: Skull base flow voids intact. OTHER FINDINGS: None . IMPRESSION: There are several small metastatic lesions in the bilateral cerebral hemispheres with the largest at the right caudate head measuring 1.0 cm greatest dimension. The majority measure well under 1 cm greatest dimension. No definitive acute or subacute infarction felt to be present. No mass effect appreciable. Age-appropriate age related neuro degenerative findings.
--- NOTE | 2019-01-27 17:17 | CP.PCM.PN ---
Subjective - Date & Time of Evaluation Date of Evaluation: 01/27/19 Time of Evaluation: 10:40 - Subjective Subjective: Patient sitting comfortable in bed in no apparent distress Alert, Awake, No acute distress Admits Cough with white/yellow sputum that is improving, and Intermittent subjective fevers overnight Denies chest pain, SOB, hemoptysis Breathing improved Afebrile CT Guided Biopsy 12/28 - Well tolerated. 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 Physical Exam Oxygen Saturation 97%Room General: AAOx3, NAD Cardio: S1. S2, No murmurs, rubs, gallops Resp: CTA, No rales, rhonchi, wheezing Abd: Soft, non-tender, No rebound, rigidity, guarding A/P 1. 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 COPD( Chronic Obstructive Pulmonary Disease) -Nebulizer treatment Objective - Vital Signs/Intake and Output Vital Signs (last 24 hours): Temp Pulse Resp BP Pulse Ox 98.2 F 101 H 20 133/76 97 01/27/19 15:00 01/27/19 15:00 01/27/19 15:00 01/27/19 15:00 01/27/19 15:00 - Medications Medications: Current Medications Acetaminophen (Tylenol 325mg Tab) 650 mg PO Q6 PRN PRN Reason: Other Last Admin: 01/26/19 20:24 Dose: 650 mg Albuterol/Ipratropium (Duoneb 3 Mg/0.5 Mg (3 Ml) Ud) 3 ml INH Q6 PRN PRN Reason: Shortness of Breath Enoxaparin Sodium (Lovenox) 40 mg SC DAILY SH[facility]OH Last Admin: 01/27/19 09:49 Dose: 40 mg Guaifenesin (Robitussin) 100 mg PO Q6H PRN PRN Reason: Cough Last Admin: 01/25/19 15:42 Dose: 100 mg Ceftriaxone Sodium (Rocephin Iv 1 Gm Duplex) 50 mls @ 100 mls/hr IVPB DAILY [facility]; Protocol Last Admin: 01/27/19 09:49 Dose: 100 mls/hr Ibuprofen (Motrin Tab) 600 mg PO Q6H PRN PRN Reason: Pain, moderate (4-7) Last Admin: 01/22/19 09:39 Dose: 600 mg - Labs Labs: 01/25/19 07:21 01/25/19 07:21 PT 13.9 SECONDS (9.7-12.2) H 01/25/19 07:21 INR 1.3 01/25/19 07:21 APTT 34 SECONDS (21-34) 01/24/19 08:17
--- NOTE | 2019-01-27 18:19 | CP.PCM.PN ---
Subjective - Date & Time of Evaluation Date of Evaluation: 01/27/19 Time of Evaluation: 15:00 - Subjective Subjective: No complaints. staging imaging shows left ventricular mass, liver lesion and brain lesions concerning for metastatic disease will need radiation oncology evaluation for brain metastasis unable to empirically anticoagulate for cardiac mass given brain metastasis bleeding risk will likely need echo +/- contrast enhanced CT chest to further evaluate left ventricular mass Objective - Vital Signs/Intake and Output Vital Signs (last 24 hours): Temp Pulse Resp BP Pulse Ox 98.2 F 101 H 20 133/76 97 01/27/19 15:00 01/27/19 15:00 01/27/19 15:00 01/27/19 15:00 01/27/19 15:00 - Medications Medications: Current Medications Acetaminophen (Tylenol 325mg Tab) 650 mg PO Q6 PRN PRN Reason: Other Last Admin: 01/26/19 20:24 Dose: 650 mg Albuterol/Ipratropium (Duoneb 3 Mg/0.5 Mg (3 Ml) Ud) 3 ml INH Q6 PRN PRN Reason: Shortness of Breath Enoxaparin Sodium (Lovenox) 40 mg SC DAILY [facility] Last Admin: 01/27/19 09:49 Dose: 40 mg Guaifenesin (Robitussin) 100 mg PO Q6H PRN PRN Reason: Cough Last Admin: 01/25/19 15:42 Dose: 100 mg Ceftriaxone Sodium (Rocephin Iv 1 Gm Duplex) 50 mls @ 100 mls/hr IVPB DAILY [facility]; Protocol Last Admin: 01/27/19 09:49 Dose: 100 mls/hr Ibuprofen (Motrin Tab) 600 mg PO Q6H PRN PRN Reason: Pain, moderate (4-7) Last Admin: 01/22/19 09:39 Dose: 600 mg - Labs Labs: 01/25/19 07:21 01/25/19 07:21 PT 13.9 SECONDS (9.7-12.2) H 01/25/19 07:21 INR 1.3 01/25/19 07:21 APTT 34 SECONDS (21-34) 01/24/19 08:17 - Head Exam Head Exam: ATRAUMATIC - Eye Exam Eye Exam: Normal appearance - ENT Exam ENT Exam: Mucous Membranes Dry - Respiratory Exam Respiratory Exam: NORMAL BREATHING PATTERN - Cardiovascular Exam Cardiovascular Exam: +S1, +S2 - GI/Abdominal Exam GI & Abdominal Exam: Normal Bowel Sounds - Extremities Exam Extremities Exam: Normal Inspection Assessment and Plan (1) Lung cancer Assessment & Plan: stage IV lung, brain, liver ? cardiac mets - left ventricular mass ? thrombus rad onc evaluation for brain mets high risk for brain met bleeding with therapeutic anticoagulation; okay for DVT prophylaxis Status: Acute (2) Anemia Assessment & Plan: chronic disease Status: Acute (3) Leukocytosis Assessment & Plan: on antibiotics Status: Acute
[2019-01-28] MEDS: Enoxaparin 40 mg Syringe SC SCH (09:31)
[2019-01-28] MEDS: cefTRIAXone IV 1 gm in Dextros 50 ML IVPB SCH (09:31)
--- NOTE | 2019-01-28 09:57 | CP.PCM.PN ---
Subjective - Date & Time of Evaluation Date of Evaluation: 01/28/19 Time of Evaluation: 08:20 - Subjective Subjective: Patient seen and examined Still complaining of cough and shortness of breath on exertion Afebrile Status post lung biopsy consistent with adenocarcinoma Patient seen by oncology and workup in progress for staging which most likely is stage IV with metastases to brain Objective - Vital Signs/Intake and Output Vital Signs (last 24 hours): Temp Pulse Resp BP Pulse Ox 98.1 F 82 20 116/70 99 01/28/19 07:00 01/28/19 07:00 01/28/19 07:00 01/28/19 07:00 01/28/19 07:00 Intake and Output: 01/28/19 01/28/19 06:59 18:59 Intake Total 540 Balance 540 - Medications Medications: Current Medications Acetaminophen (Tylenol 325mg Tab) 650 mg PO Q6 PRN PRN Reason: Other Last Admin: 01/26/19 20:24 Dose: 650 mg Albuterol/Ipratropium (Duoneb 3 Mg/0.5 Mg (3 Ml) Ud) 3 ml INH Q6 PRN PRN Reason: Shortness of Breath Enoxaparin Sodium (Lovenox) 40 mg SC DAILY [facility] Last Admin: 01/28/19 09:31 Dose: 40 mg Guaifenesin (Robitussin) 100 mg PO Q6H PRN PRN Reason: Cough Last Admin: 01/25/19 15:42 Dose: 100 mg Ceftriaxone Sodium (Rocephin Iv 1 Gm Duplex) 50 mls @ 100 mls/hr IVPB DAILY [facility]; Protocol Last Admin: 01/28/19 09:31 Dose: 100 mls/hr Ibuprofen (Motrin Tab) 600 mg PO Q6H PRN PRN Reason: Pain, moderate (4-7) Last Admin: 01/28/19 08:39 Dose: 600 mg - Labs Labs: 01/25/19 07:21 01/25/19 07:21 PT 13.9 SECONDS (9.7-12.2) H 01/25/19 07:21 INR 1.3 01/25/19 07:21 APTT 34 SECONDS (21-34) 01/24/19 08:17 - Head Exam Head Exam: ATRAUMATIC, NORMOCEPHALIC - Neck Exam Neck Exam: Normal Inspection - Respiratory Exam Respiratory Exam: Decreased Breath Sounds - GI/Abdominal Exam GI & Abdominal Exam: Soft, Normal Bowel Sounds - Neurological Exam Neurological Exam: Alert Assessment and Plan (1) Lung cancer Assessment & Plan: Seen by oncology Follow-up tumor markers EGFR and TKi Status: Acute (2) Postobstructive pneumonia Assessment & Plan: Continue antibiotics Status: Acute (3) COPD (chronic obstructive pulmonary disease) Assessment & Plan: Continue nebulizer treatment LABA/LAMA combination Status: Chronic
--- NOTE | 2019-01-28 11:38 | CP.PCM.PN ---
Subjective - Date & Time of Evaluation Date of Evaluation: 01/28/19 Time of Evaluation: 11:37 - Subjective Subjective: FINDINGS ON MRI/CT NOTED HIGH RISK ANTICOAGULATION ON 2D ECHO THERE IS NOTHING IN [place] WILL CONFIRM WITH YISEL Objective - Vital Signs/Intake and Output Vital Signs (last 24 hours): Temp Pulse Resp BP Pulse Ox 98.1 F 82 20 116/70 99 01/28/19 07:00 01/28/19 07:00 01/28/19 07:00 01/28/19 07:00 01/28/19 07:00 Intake and Output: 01/27/19 01/28/19 23:59 11:59 Intake Total 300 240 Balance 300 240 - Medications Medications: Current Medications Acetaminophen (Tylenol 325mg Tab) 650 mg PO Q6 PRN PRN Reason: Other Last Admin: 01/26/19 20:24 Dose: 650 mg Albuterol/Ipratropium (Duoneb 3 Mg/0.5 Mg (3 Ml) Ud) 3 ml INH Q6 PRN PRN Reason: Shortness of Breath Enoxaparin Sodium (Lovenox) 40 mg SC DAILY [facility] Last Admin: 01/28/19 09:31 Dose: 40 mg Guaifenesin (Robitussin) 100 mg PO Q6H PRN PRN Reason: Cough Last Admin: 01/25/19 15:42 Dose: 100 mg Ceftriaxone Sodium (Rocephin Iv 1 Gm Duplex) 50 mls @ 100 mls/hr IVPB DAILY [facility]; Protocol Last Admin: 01/28/19 09:31 Dose: 100 mls/hr Ibuprofen (Motrin Tab) 600 mg PO Q6H PRN PRN Reason: Pain, moderate (4-7) Last Admin: 01/28/19 08:39 Dose: 600 mg - Labs Labs: 01/25/19 07:21 01/25/19 07:21 PT 13.9 SECONDS (9.7-12.2) H 01/25/19 07:21 INR 1.3 01/25/19 07:21 APTT 34 SECONDS (21-34) 01/24/19 08:17 Assessment and Plan (1) Lung mass Status: Acute (2) Weakness Status: Acute
[2019-01-28 11:50] LABS: BASO # 0.1 K/uL (0.0-0.2); BASO % 1.1 % (0.0-2.0); EOS # 0.5 K/uL (0.0-0.7); EOS % 4.3 % (0.0-4.0); HEMOGLOBIN 8.6 g/dL (11.0-16.0); LYMPH # 2.3 K/uL (1.0-4.3); LYMPH % 18.5 % (20.0-40.0); MEAN CELL VOLUME 79.3 fL (81.0-99.0); MEAN CORPUSCULAR HEMOGLOBIN 25.3 pg (27.0-31.0); MEAN PLATELET VOLUME 7.2 fL (7.2-11.7); MONO # 1.2 K/uL (0.0-0.8); NEUT # 8.1 K/uL (1.8-7.0); NEUT % 66.1 % (50.0-75.0); RBC 3.38 Mil/uL (3.80-5.20); RED CELL DISTRIBUTION WIDTH 20.4 % (11.5-14.5); WHITE BLOOD COUNT 12.2 K/uL (4.8-10.8)
[2019-01-28 12:03] LABS: BLOOD UREA NITROGEN 13 mg/dL (7-17); CALCIUM 8.7 mg/dl (8.6-10.4); GFR NON-AFRICAN AMERICAN > 60
--- NOTE | 2019-01-28 12:21 | CP.PCM.PN ---
Subjective - Date & Time of Evaluation Date of Evaluation: 01/28/19 Time of Evaluation: 11:00 - Subjective Subjective: No complaints. Spoke to the patient and her daughter Yvonne about her diagnosis, stage, and treatment. Spoke to Dr. Dian abreu about whole brain radiotherapy; she will see the patient Thursday and arrange transportation if patient to be discharged then patient to f/u with Dr. Biggs Thursday as outpatient cardiac evaluation noted; for YISEL anticoagulation on hold given high risk for bleeding with untreated brain mets Objective - Vital Signs/Intake and Output Vital Signs (last 24 hours): Temp Pulse Resp BP Pulse Ox 98.1 F 82 20 116/70 99 01/28/19 07:00 01/28/19 07:00 01/28/19 07:00 01/28/19 07:00 01/28/19 07:00 Intake and Output: 01/28/19 01/28/19 06:59 18:59 Intake Total 540 Balance 540 - Medications Medications: Current Medications Acetaminophen (Tylenol 325mg Tab) 650 mg PO Q6 PRN PRN Reason: Other Last Admin: 01/26/19 20:24 Dose: 650 mg Albuterol/Ipratropium (Duoneb 3 Mg/0.5 Mg (3 Ml) Ud) 3 ml INH Q6 PRN PRN Reason: Shortness of Breath Enoxaparin Sodium (Lovenox) 40 mg SC DAILY [facility] Last Admin: 01/28/19 09:31 Dose: 40 mg Guaifenesin (Robitussin) 100 mg PO Q6H PRN PRN Reason: Cough Last Admin: 01/25/19 15:42 Dose: 100 mg Ceftriaxone Sodium (Rocephin Iv 1 Gm Duplex) 50 mls @ 100 mls/hr IVPB DAILY [facility]; Protocol Last Admin: 01/28/19 09:31 Dose: 100 mls/hr Ibuprofen (Motrin Tab) 600 mg PO Q6H PRN PRN Reason: Pain, moderate (4-7) Last Admin: 01/28/19 08:39 Dose: 600 mg - Labs Labs: 01/28/19 11:03 01/28/19 11:03 PT 13.9 SECONDS (9.7-12.2) H 01/25/19 07:21 INR 1.3 01/25/19 07:21 APTT 34 SECONDS (21-34) 01/24/19 08:17 - Head Exam Head Exam: ATRAUMATIC - Eye Exam Eye Exam: Normal appearance - ENT Exam ENT Exam: Mucous Membranes Dry - Respiratory Exam Respiratory Exam: NORMAL BREATHING PATTERN - Cardiovascular Exam Cardiovascular Exam: +S1, +S2 - GI/Abdominal Exam GI & Abdominal Exam: Normal Bowel Sounds - Extremities Exam Extremities Exam: Normal Inspection Assessment and Plan (1) Lung cancer Status: Acute (2) Anemia Status: Acute (3) Leukocytosis Status: Acute
[2019-01-29] MEDS: Enoxaparin 40 mg Syringe SC SCH (09:05)
[2019-01-29] MEDS: cefTRIAXone IV 1 gm in Dextros 50 ML IVPB SCH (09:42)
--- NOTE | 2019-01-29 12:43 | CP.PCM.PN ---
Subjective - Date & Time of Evaluation Date of Evaluation: 01/29/19 Time of Evaluation: 12:42 - Subjective Subjective: NO COMPLAINTS FOR RT MON YISEL TO DEFINE THE MASS IN [place] Objective - Vital Signs/Intake and Output Vital Signs (last 24 hours): Temp Pulse Resp BP Pulse Ox 97.9 F 89 20 125/79 97 01/29/19 07:00 01/29/19 07:00 01/29/19 07:00 01/29/19 07:00 01/29/19 07:00 - Medications Medications: Current Medications Acetaminophen (Tylenol 325mg Tab) 650 mg PO Q6 PRN PRN Reason: Other Last Admin: 01/29/19 00:19 Dose: 650 mg Albuterol/Ipratropium (Duoneb 3 Mg/0.5 Mg (3 Ml) Ud) 3 ml INH Q6 PRN PRN Reason: Shortness of Breath Guaifenesin (Robitussin) 100 mg PO Q6H PRN PRN Reason: Cough Last Admin: 01/25/19 15:42 Dose: 100 mg Ceftriaxone Sodium (Rocephin Iv 1 Gm Duplex) 50 mls @ 100 mls/hr IVPB DAILY [facility]; Protocol Last Admin: 01/29/19 09:42 Dose: 100 mls/hr Ibuprofen (Motrin Tab) 600 mg PO Q6H PRN PRN Reason: Pain, moderate (4-7) Last Admin: 01/28/19 08:39 Dose: 600 mg - Labs Labs: 01/28/19 11:03 01/28/19 11:03 PT 13.9 SECONDS (9.7-12.2) H 01/25/19 07:21 INR 1.3 01/25/19 07:21 APTT 34 SECONDS (21-34) 01/24/19 08:17 Assessment and Plan (1) Lung mass Status: Acute (2) Weakness Status: Acute
--- NOTE | 2019-01-29 19:26 | CP.PCM.PN ---
Subjective - Date & Time of Evaluation Date of Evaluation: 01/29/19 Time of Evaluation: 15:40 - Subjective Subjective: Patient seen and examined Patient still complaining of cough Dyspnea on exertion For radiation therapy on Thursday Continue nebulizer treatment Add antitussive Objective - Vital Signs/Intake and Output Vital Signs (last 24 hours): Temp Pulse Resp BP Pulse Ox 98.2 F 96 H 20 150/85 97 01/29/19 15:00 01/29/19 15:00 01/29/19 15:00 01/29/19 15:00 01/29/19 15:00 - Medications Medications: Current Medications Acetaminophen (Tylenol 325mg Tab) 650 mg PO Q6 PRN PRN Reason: Other Last Admin: 01/29/19 00:19 Dose: 650 mg Albuterol/Ipratropium (Duoneb 3 Mg/0.5 Mg (3 Ml) Ud) 3 ml INH Q6 PRN PRN Reason: Shortness of Breath Guaifenesin (Robitussin) 100 mg PO Q6H PRN PRN Reason: Cough Last Admin: 01/25/19 15:42 Dose: 100 mg Ceftriaxone Sodium (Rocephin Iv 1 Gm Duplex) 50 mls @ 100 mls/hr IVPB DAILY [facility]IL[facility]; Protocol Last Admin: 01/29/19 09:42 Dose: 100 mls/hr Ibuprofen (Motrin Tab) 600 mg PO Q6H PRN PRN Reason: Pain, moderate (4-7) Last Admin: 01/28/19 08:39 Dose: 600 mg - Labs Labs: 01/28/19 11:03 01/28/19 11:03 PT 13.9 SECONDS (9.7-12.2) H 01/25/19 07:21 INR 1.3 01/25/19 07:21 APTT 34 SECONDS (21-34) 01/24/19 08:17 Assessment and Plan (1) Lung cancer Status: Acute (2) Postobstructive pneumonia Status: Acute (3) COPD (chronic obstructive pulmonary disease) Status: Chronic
--- NOTE | 2019-01-29 23:08 | CP.PCM.PN ---
Subjective - Date & Time of Evaluation Date of Evaluation: 01/29/19 Time of Evaluation: 19:00 - Subjective Subjective: Has some cough. Objective - Vital Signs/Intake and Output Vital Signs (last 24 hours): Temp Pulse Resp BP Pulse Ox 98.2 F 96 H 20 150/85 97 01/29/19 15:00 01/29/19 15:00 01/29/19 15:00 01/29/19 15:00 01/29/19 15:00 - Medications Medications: Current Medications Acetaminophen (Tylenol 325mg Tab) 650 mg PO Q6 PRN PRN Reason: Other Last Admin: 01/29/19 00:19 Dose: 650 mg Albuterol/Ipratropium (Duoneb 3 Mg/0.5 Mg (3 Ml) Ud) 3 ml INH Q6 PRN PRN Reason: Shortness of Breath Benzonatate (Tessalon Perles) 200 mg PO BID [facility] Last Admin: 01/29/19 19:34 Dose: 200 mg Guaifenesin (Robitussin) 100 mg PO Q6H PRN PRN Reason: Cough Last Admin: 01/25/19 15:42 Dose: 100 mg Ceftriaxone Sodium (Rocephin Iv 1 Gm Duplex) 50 mls @ 100 mls/hr IVPB DAILY SHILOH; Protocol Last Admin: 01/29/19 09:42 Dose: 100 mls/hr Ibuprofen (Motrin Tab) 600 mg PO Q6H PRN PRN Reason: Pain, moderate (4-7) Last Admin: 01/28/19 08:39 Dose: 600 mg - Labs Labs: 01/28/19 11:03 01/28/19 11:03 PT 13.9 SECONDS (9.7-12.2) H 01/25/19 07:21 INR 1.3 01/25/19 07:21 APTT 34 SECONDS (21-34) 01/24/19 08:17 - Constitutional Appears: Cachectic - Head Exam Head Exam: ATRAUMATIC - Eye Exam Eye Exam: Normal appearance - ENT Exam ENT Exam: Mucous Membranes Dry - Respiratory Exam Respiratory Exam: Decreased Breath Sounds - Cardiovascular Exam Cardiovascular Exam: +S1, +S2 - GI/Abdominal Exam GI & Abdominal Exam: Normal Bowel Sounds Assessment and Plan (1) Lung cancer Assessment & Plan: stage IV brain, liver, lung mets ? cardiac met vs thrombus - for YISEL anticoagulation on hold due to risk of brain met hemorrhage for rad onc on Thursday Status: Acute (2) Anemia Assessment & Plan: chronic disease Status: Acute (3) Leukocytosis Assessment & Plan: improving on antibiotics Status: Acute
[2019-01-30 08:11] LABS: BASO # 0.2 K/uL (0.0-0.2); BASO % 1.2 % (0.0-2.0); EOS # 0.7 K/uL (0.0-0.7); EOS % 4.6 % (0.0-4.0); HEMOGLOBIN 8.8 g/dL (11.0-16.0); LYMPH # 2.7 K/uL (1.0-4.3); LYMPH % 18.7 % (20.0-40.0); MEAN CELL VOLUME 79.5 fL (81.0-99.0); MEAN CORPUSCULAR HEMOGLOBIN 25.9 pg (27.0-31.0); MEAN CORPUSCULAR HGB CONC 32.6 g/dL (33.0-37.0); MEAN PLATELET VOLUME 7.2 fL (7.2-11.7); MONO # 1.4 K/uL (0.0-0.8); MONO % 9.8 % (0.0-10.0); NEUT # 9.5 K/uL (1.8-7.0); NEUT % 65.7 % (50.0-75.0); NRBC % 0.1 % (0.0-2.0); RBC 3.38 Mil/uL (3.80-5.20); RED CELL DISTRIBUTION WIDTH 20.4 % (11.5-14.5); WHITE BLOOD COUNT 14.5 K/uL (4.8-10.8)
[2019-01-30 08:24] LABS: ALB/GLOB RATIO 0.9 (1.0-2.1); ALT/SGPT 16 U/L (9-52); AST/SGOT 20 U/L (14-36); BLOOD UREA NITROGEN 17 mg/dL (7-17); CALCIUM 9.1 mg/dl (8.6-10.4); GFR NON-AFRICAN AMERICAN > 60
[2019-01-30] MEDS: cefTRIAXone IV 1 gm in Dextros 50 ML IVPB SCH (09:51)
--- NOTE | 2019-01-30 12:28 | CP.PCM.PN ---
Subjective - Date & Time of Evaluation Date of Evaluation: 01/30/19 Time of Evaluation: 12:28 - Subjective Subjective: RT ON MON NO NEW DEVELOPMENT Objective - Vital Signs/Intake and Output Vital Signs (last 24 hours): Temp Pulse Resp BP Pulse Ox 98.2 F 86 20 147/81 97 01/29/19 23:20 01/29/19 23:20 01/29/19 23:20 01/29/19 23:20 01/29/19 23:20 Intake and Output: 01/30/19 01/30/19 11:59 23:59 Intake Total 0 Balance 0 - Medications Medications: Current Medications Acetaminophen (Tylenol 325mg Tab) 650 mg PO Q6 PRN PRN Reason: Other Last Admin: 01/29/19 00:19 Dose: 650 mg Albuterol/Ipratropium (Duoneb 3 Mg/0.5 Mg (3 Ml) Ud) 3 ml INH Q6 PRN PRN Reason: Shortness of Breath Benzonatate (Tessalon Perles) 200 mg PO BID [facility] Last Admin: 01/30/19 09:57 Dose: 200 mg Guaifenesin (Robitussin) 100 mg PO Q6H PRN PRN Reason: Cough Last Admin: 01/25/19 15:42 Dose: 100 mg Ibuprofen (Motrin Tab) 600 mg PO Q6H PRN PRN Reason: Pain, moderate (4-7) Last Admin: 01/28/19 08:39 Dose: 600 mg - Labs Labs: 01/30/19 07:59 01/30/19 07:59 PT 13.9 SECONDS (9.7-12.2) H 01/25/19 07:21 INR 1.3 01/25/19 07:21 APTT 34 SECONDS (21-34) 01/24/19 08:17 Assessment and Plan (1) Lung mass Status: Acute (2) Weakness Status: Acute
--- NOTE | 2019-01-31 11:08 | CP.PCM.CON ---
History of Present Illness - History of Present Illness History of Present Illness: Ms Catalan is a 58 year old female with stage IV lung cancer. She initially presented to [facility] with fatigue, decreased exercise tolerancee and shortness of breath. She had a CT of the chest on January 20, 2019 which revealed a large 5.5 x .3 x 6.2cm right upper lobe mass with extension to the hilum along with mediastinal adenopathy. A Ct guided biopsy on January 25, 2019 revealed adenocarcinoma. She had a metastatic work-up on January 27, 2019 which revealed a partially imaged ventricular mass as well as 1.8 x 1.7cm hepatic lobe lesion. A MRI of the brain revealed multiple brain metastases with no mass effect. The largest measured 1.0cm. She was referred for whole brain radiation Review of Systems - Constitutional Constitutional: Weakness - Respiratory Respiratory: Cough, Dyspnea Past Patient History - Infectious Disease Hx of Infectious Diseases: None - Past Medical History & Family History Past Medical History?: Yes - Past Social History Smoking Status: Heavy Smoker > 10 Cigarettes Daily Alcohol: None Home Situation {Lives}: Alone - CARDIAC Hx Cardiac Disorders: No - PULMONARY Hx Respiratory Disorders: No - NEUROLOGICAL Hx Neurological Disorder: No - HEENT Hx HEENT Problems: No - RENAL Hx Chronic Kidney Disease: Yes Hx Renal Failure: Yes Other/Comment: kidney stent - HEMATOLOGICAL/ONCOLOGICAL Hx Blood Disorders: No - INTEGUMENTARY Hx Dermatological Problems: No - MUSCULOSKELETAL/RHEUMATOLOGICAL Hx Musculoskeletal Disorders: No Hx Falls: No - GASTROINTESTINAL Hx Gastrointestinal Disorders: No Hx Pancreatitis: Yes - GENITOURINARY/GYNECOLOGICAL Hx Genitourinary Disorders: No - PSYCHIATRIC Hx Psychophysiologic Disorder: No Hx Substance Use: No - SURGICAL HISTORY Hx Surgeries: Yes Other/Comment: Kidney Stents - ANESTHESIA Hx Anesthesia: Yes Hx Anesthesia Reactions: No Hx Malignant Hyperthermia: No Meds Allergies/Adverse Reactions: Allergies Allergy/AdvReac Type Severity Reaction Status Date / Time No Known Allergies Allergy Verified 01/20/19 18:21 - Medications Medications: Current Medications Acetaminophen (Tylenol 325mg Tab) 650 mg PO Q6 PRN PRN Reason: Other Last Admin: 01/31/19 02:07 Dose: 650 mg Albuterol/Ipratropium (Duoneb 3 Mg/0.5 Mg (3 Ml) Ud) 3 ml INH Q6 PRN PRN Reason: Shortness of Breath Benzonatate (Tessalon Perles) 200 mg PO BID [facility] Last Admin: 01/31/19 10:38 Dose: 200 mg Guaifenesin (Robitussin) 100 mg PO Q6H PRN PRN Reason: Cough Last Admin: 01/25/19 15:42 Dose: 100 mg Ibuprofen (Motrin Tab) 600 mg PO Q6H PRN PRN Reason: Pain, moderate (4-7) Last Admin: 01/28/19 08:39 Dose: 600 mg Physical Exam - Head Exam Head Exam: NORMAL INSPECTION - Eye Exam Eye Exam: EOMI - ENT Exam ENT Exam: Mucous Membranes Moist - Respiratory Exam Respiratory Exam: Decreased Breath Sounds - Cardiovascular Exam Cardiovascular Exam: REGULAR RHYTHM - GI/Abdominal Exam GI & Abdominal Exam: Normal Bowel Sounds - Neurological Exam Neurological exam: CN II-XII Intact, Oriented x3 Results - Vital Signs Recent Vital Signs: Last Vital Signs Temp 97.8 F 01/31/19 10:31 Pulse 97 H 01/31/19 10:31 Resp 20 01/31/19 10:31 BP 139/75 01/31/19 10:31 Pulse Ox 97 01/31/19 10:31 - Labs Result Diagrams: 01/30/19 07:59 01/30/19 07:59 Assessment & Plan - Assessment and Plan (Free Text) Assessment: Ms Catalan is a 58 year old female with a stage IV lung cancer with multifocal brain metastases. We would concur that she would benefit from whole brain radiation therapy. We spoke about the risks and benefits of radiation. Informed consent was obtained. We will schedule her for a simulation session today, and begin tomorrow. She is getting a YISEL today to evaluate her ventricular mass.
--- NOTE | 2019-01-31 11:56 | CP.PCM.PN ---
Subjective - Date & Time of Evaluation Date of Evaluation: 01/31/19 Time of Evaluation: 11:55 - Subjective Subjective: PT. WAS IN [facility] AND WILL START RT IN AM AWAITING YISEL IF STABLE D/C Objective - Vital Signs/Intake and Output Vital Signs (last 24 hours): Temp Pulse Resp BP Pulse Ox 97.8 F 97 H 20 139/75 97 01/31/19 10:31 01/31/19 10:31 01/31/19 10:31 01/31/19 10:31 01/31/19 10:31 - Medications Medications: Current Medications Acetaminophen (Tylenol 325mg Tab) 650 mg PO Q6 PRN PRN Reason: Other Last Admin: 01/31/19 02:07 Dose: 650 mg Albuterol/Ipratropium (Duoneb 3 Mg/0.5 Mg (3 Ml) Ud) 3 ml INH Q6 PRN PRN Reason: Shortness of Breath Benzonatate (Tessalon Perles) 200 mg PO BID [facility] Last Admin: 01/31/19 10:38 Dose: 200 mg Guaifenesin (Robitussin) 100 mg PO Q6H PRN PRN Reason: Cough Last Admin: 01/25/19 15:42 Dose: 100 mg Ibuprofen (Motrin Tab) 600 mg PO Q6H PRN PRN Reason: Pain, moderate (4-7) Last Admin: 01/28/19 08:39 Dose: 600 mg - Labs Labs: 01/30/19 07:59 01/30/19 07:59 PT 13.9 SECONDS (9.7-12.2) H 01/25/19 07:21 INR 1.3 01/25/19 07:21 APTT 34 SECONDS (21-34) 01/24/19 08:17 Assessment and Plan (1) Lung mass Status: Acute (2) Weakness Status: Acute
--- NOTE | 2019-01-31 17:38 | CP.PCM.PN ---
Subjective - Date & Time of Evaluation Date of Evaluation: 01/31/19 Time of Evaluation: 11:30 - Subjective Subjective: Patient seen and examined s/p RT at [facility] Alert, Awake, No acute distress Still complaining of cough with white/yellow phlegm Denies chest pain, SOB, hemoptysis Afebrile Continue nebulizer treatment Discontinue Benzonatate and Start Phenergan with Codeine CT Guided Biopsy 12/28 - Well tolerated. 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 Physical Exam Oxygen Saturation 96%Room General: AAOx3, NAD, Weak Cardio: S1. S2, No murmurs, rubs, gallops Resp: CTA, No rales, rhonchi, wheezing Abd: Soft, non-tender, No rebound, rigidity, guarding A/P 1. Lung Cancer - Acute 2. Postobstructive Pneumonia - Acute 3. COPD(Chronic Obstructive Pulmonary Disease) -Chronic Objective - Vital Signs/Intake and Output Vital Signs (last 24 hours): Temp Pulse Resp BP Pulse Ox 99.8 F H 95 H 20 128/81 95 01/31/19 15:00 01/31/19 15:00 01/31/19 15:00 01/31/19 15:00 01/31/19 15:00 - Medications Medications: Current Medications Acetaminophen (Tylenol 325mg Tab) 650 mg PO Q6 PRN PRN Reason: Other Last Admin: 01/31/19 02:07 Dose: 650 mg Albuterol/Ipratropium (Duoneb 3 Mg/0.5 Mg (3 Ml) Ud) 3 ml INH Q6 PRN PRN Reason: Shortness of Breath Guaifenesin (Robitussin) 100 mg PO Q6H PRN PRN Reason: Cough Last Admin: 01/25/19 15:42 Dose: 100 mg Ibuprofen (Motrin Tab) 600 mg PO Q6H PRN PRN Reason: Pain, moderate (4-7) Last Admin: 01/28/19 08:39 Dose: 600 mg Promethazine HCl/Codeine (Phenergan/Codeine Oral Syrup) 5 ml PO Q6 PRN PRN Reason: Cough - Labs Labs: 01/30/19 07:59 01/30/19 07:59 PT 13.9 SECONDS (9.7-12.2) H 01/25/19 07:21 INR 1.3 01/25/19 07:21 APTT 34 SECONDS (21-34) 01/24/19 08:17 Assessment and Plan (1) Lung cancer Status: Acute (2) Postobstructive pneumonia Status: Acute (3) COPD (chronic obstructive pulmonary disease) Status: Chronic
[2019-01-31] MEDS: Promethazine/Cod 6.25mg-10mg/5ml Syr UD PO PRN (19:12)
--- NOTE | 2019-01-31 23:29 | CP.PCM.CON ---
History of Present Illness - History of Present Illness History of Present Illness: YISEL Consult requested for [place] mass YISEL either tomorrow or Thursday Thank you will follow Past Patient History - Infectious Disease Hx of Infectious Diseases: None - Past Medical History & Family History Past Medical History?: Yes - Past Social History Smoking Status: Heavy Smoker > 10 Cigarettes Daily Alcohol: None Home Situation {Lives}: Alone - CARDIAC Hx Cardiac Disorders: No - PULMONARY Hx Respiratory Disorders: No - NEUROLOGICAL Hx Neurological Disorder: No - HEENT Hx HEENT Problems: No - RENAL Hx Chronic Kidney Disease: Yes Hx Renal Failure: Yes Other/Comment: kidney stent - ENDOCRINE/METABOLIC Hx Endocrine Disorders: Yes Hx Diabetes Mellitus Type 2: Yes - HEMATOLOGICAL/ONCOLOGICAL Hx Blood Disorders: No - INTEGUMENTARY Hx Dermatological Problems: No - MUSCULOSKELETAL/RHEUMATOLOGICAL Hx Musculoskeletal Disorders: No Hx Falls: No - GASTROINTESTINAL Hx Gastrointestinal Disorders: No Hx Pancreatitis: Yes - GENITOURINARY/GYNECOLOGICAL Hx Genitourinary Disorders: No - PSYCHIATRIC Hx Psychophysiologic Disorder: No Hx Substance Use: No - SURGICAL HISTORY Hx Surgeries: Yes Other/Comment: Kidney Stents - ANESTHESIA Hx Anesthesia: Yes Hx Anesthesia Reactions: No Hx Malignant Hyperthermia: No Meds Allergies/Adverse Reactions: Allergies Allergy/AdvReac Type Severity Reaction Status Date / Time No Known Allergies Allergy Verified 01/20/19 18:21 - Medications Medications: Current Medications Acetaminophen (Tylenol 325mg Tab) 650 mg PO Q6 PRN PRN Reason: Other Last Admin: 01/31/19 19:12 Dose: 650 mg Albuterol/Ipratropium (Duoneb 3 Mg/0.5 Mg (3 Ml) Ud) 3 ml INH Q6 PRN PRN Reason: Shortness of Breath Guaifenesin (Robitussin) 100 mg PO Q6H PRN PRN Reason: Cough Last Admin: 01/25/19 15:42 Dose: 100 mg Ibuprofen (Motrin Tab) 600 mg PO Q6H PRN PRN Reason: Pain, moderate (4-7) Last Admin: 01/28/19 08:39 Dose: 600 mg Promethazine HCl/Codeine (Phenergan/Codeine Oral Syrup) 5 ml PO Q6 PRN PRN Reason: Cough Last Admin: 01/31/19 19:12 Dose: 5 ml Results - Vital Signs Recent Vital Signs: Last Vital Signs Temp 98.4 F 01/31/19 20:12 Pulse 95 H 01/31/19 15:00 Resp 20 01/31/19 15:00 BP 128/81 01/31/19 15:00 Pulse Ox 95 01/31/19 15:00 - Labs Result Diagrams: 01/30/19 07:59 01/30/19 07:59
[2019-02-01 09:37] VITALS: O2SAT 98
[2019-02-01] MEDS: Promethazine/Cod 6.25mg-10mg/5ml Syr UD PO PRN (11:36)
--- NOTE | 2019-02-01 12:13 | CP.PCM.PN ---
Subjective - Date & Time of Evaluation Date of Evaluation: 02/01/19 Time of Evaluation: 12:13 - Subjective Subjective: AWAITING YISEL AND DISCHARGE Objective - Vital Signs/Intake and Output Vital Signs (last 24 hours): Temp Pulse Resp BP Pulse Ox 97.9 F 101 H 18 123/76 98 02/01/19 09:30 02/01/19 09:30 02/01/19 09:30 02/01/19 09:30 02/01/19 09:30 - Medications Medications: Current Medications Acetaminophen (Tylenol 325mg Tab) 650 mg PO Q6 PRN PRN Reason: Other Last Admin: 02/01/19 11:31 Dose: 650 mg Albuterol/Ipratropium (Duoneb 3 Mg/0.5 Mg (3 Ml) Ud) 3 ml INH Q6 PRN PRN Reason: Shortness of Breath Guaifenesin (Robitussin) 100 mg PO Q6H PRN PRN Reason: Cough Last Admin: 01/25/19 15:42 Dose: 100 mg Ibuprofen (Motrin Tab) 600 mg PO Q6H PRN PRN Reason: Pain, moderate (4-7) Last Admin: 01/28/19 08:39 Dose: 600 mg Promethazine HCl/Codeine (Phenergan/Codeine Oral Syrup) 5 ml PO Q6 PRN PRN Reason: Cough Last Admin: 02/01/19 11:36 Dose: 5 ml - Labs Labs: 01/30/19 07:59 01/30/19 07:59 PT 13.9 SECONDS (9.7-12.2) H 01/25/19 07:21 INR 1.3 01/25/19 07:21 APTT 34 SECONDS (21-34) 01/24/19 08:17 Assessment and Plan (1) Lung mass Status: Acute (2) Weakness Status: Acute
--- NOTE | 2019-02-01 14:03 | CP.PCM.PN ---
Subjective - Date & Time of Evaluation Date of Evaluation: 02/01/19 Time of Evaluation: 09:20 - Subjective Subjective: Patient seen and examined Cough much improved Status post radiation therapy dyspnea on exertion Patient is alert and oriented Objective - Vital Signs/Intake and Output Vital Signs (last 24 hours): Temp Pulse Resp BP Pulse Ox 97.9 F 101 H 18 123/76 98 02/01/19 09:30 02/01/19 09:30 02/01/19 09:30 02/01/19 09:30 02/01/19 09:30 Intake and Output: 02/01/19 02/01/19 06:59 18:59 Intake Total 200 Balance 200 - Medications Medications: Current Medications Acetaminophen (Tylenol 325mg Tab) 650 mg PO Q6 PRN PRN Reason: Other Last Admin: 02/01/19 11:31 Dose: 650 mg Albuterol/Ipratropium (Duoneb 3 Mg/0.5 Mg (3 Ml) Ud) 3 ml INH Q6 PRN PRN Reason: Shortness of Breath Guaifenesin (Robitussin) 100 mg PO Q6H PRN PRN Reason: Cough Last Admin: 01/25/19 15:42 Dose: 100 mg Ibuprofen (Motrin Tab) 600 mg PO Q6H PRN PRN Reason: Pain, moderate (4-7) Last Admin: 01/28/19 08:39 Dose: 600 mg Promethazine HCl/Codeine (Phenergan/Codeine Oral Syrup) 5 ml PO Q6 PRN PRN Reason: Cough Last Admin: 02/01/19 11:36 Dose: 5 ml - Labs Labs: 01/30/19 07:59 01/30/19 07:59 PT 13.9 SECONDS (9.7-12.2) H 01/25/19 07:21 INR 1.3 01/25/19 07:21 APTT 34 SECONDS (21-34) 01/24/19 08:17 - Head Exam Head Exam: ATRAUMATIC, NORMOCEPHALIC - ENT Exam ENT Exam: Mucous Membranes Moist - Neck Exam Neck Exam: Normal Inspection - Respiratory Exam Respiratory Exam: Decreased Breath Sounds - Cardiovascular Exam Cardiovascular Exam: REGULAR RHYTHM - GI/Abdominal Exam GI & Abdominal Exam: Soft, Normal Bowel Sounds Assessment and Plan (1) Lung cancer Assessment & Plan: Status post radiation therapy Chemotherapy from tomorrow Continue antitussive Continue nebulizer treatment Status: Acute (2) Postobstructive pneumonia Status: Acute (3) COPD (chronic obstructive pulmonary disease) Status: Chronic
--- NOTE | 2019-02-01 15:26 | CP.PCM.PN ---
Subjective - Date & Time of Evaluation Date of Evaluation: 02/01/19 Time of Evaluation: 15:25 - Subjective Subjective: PATIENT SEEN AND EXAMINED AT THE BEDSIDE Objective - Vital Signs/Intake and Output Vital Signs (last 24 hours): Temp Pulse Resp BP Pulse Ox 97.9 F 101 H 18 123/76 98 02/01/19 09:30 02/01/19 09:30 02/01/19 09:30 02/01/19 09:30 02/01/19 09:30 Intake and Output: 02/01/19 02/01/19 06:59 18:59 Intake Total 200 Balance 200 - Medications Medications: Current Medications Acetaminophen (Tylenol 325mg Tab) 650 mg PO Q6 PRN PRN Reason: Other Last Admin: 02/01/19 11:31 Dose: 650 mg Albuterol/Ipratropium (Duoneb 3 Mg/0.5 Mg (3 Ml) Ud) 3 ml INH Q6 PRN PRN Reason: Shortness of Breath Guaifenesin (Robitussin) 100 mg PO Q6H PRN PRN Reason: Cough Last Admin: 01/25/19 15:42 Dose: 100 mg Ibuprofen (Motrin Tab) 600 mg PO Q6H PRN PRN Reason: Pain, moderate (4-7) Last Admin: 01/28/19 08:39 Dose: 600 mg Promethazine HCl/Codeine (Phenergan/Codeine Oral Syrup) 5 ml PO Q6 PRN PRN Reason: Cough Last Admin: 02/01/19 11:36 Dose: 5 ml - Labs Labs: 01/30/19 07:59 01/30/19 07:59 PT 13.9 SECONDS (9.7-12.2) H 01/25/19 07:21 INR 1.3 01/25/19 07:21 APTT 34 SECONDS (21-34) 01/24/19 08:17 Assessment and Plan - Assessment and Plan (Free Text) Assessment: FOLLOW UP WITH DR TOBIAS IN HIS OFFICE ------CALL FOR APPOINTMENT FOLLOW UP WITH DR BROWNE IN HIS OFFICE -----CALL FOR APPOINTMENT ADDRESS YOUR YISEL AT YOUR VISIT FOLLOW UP WITH DR RODRIGUEZ -----CALL FOR APPOINTMENT FOLLOW WITH [facility] FOR RADIATION ORDERED ACTIVITY TOLERATED CALL DR TOBIAS OR GO TO THE EMERGENCY ROOM IF SYMPTOM RETURN OR WORSENING
[2019-02-01 15:42] VITALS: BP 126/69; PULSE 98; RESP 20; TEMP 98.1
--- NOTE | 2019-02-02 12:16 | CP.PCM.DIS ---
Provider - Provider Date of Admission: 01/20/19 19:52 Attending physician: Ansley Theodore MD Consults: 01/21/19 08:00 Pulmonology Consult Routine Comment: Consulting Provider: Torres Taylor Consulting Physician: Torres Taylor Reason for Consult: possible mass 01/26/19 12:02 Hematology Oncology Consult Routine Comment: Consulting Provider: Frank Batres Consulting Physician: Frank Batres Reason for Consult: LUNG MASS 01/28/19 13:04 Physician Consult Routine Comment: brain mets, newly dx lung cancer Consulting Provider: Sarika Biggs Consulting Physician: Sarika Biggs Reason for Consult: brain mets, newly dx lung cancer 01/31/19 15:00 Physician Consult Routine Comment: Consulting Provider: Grady Mock Consulting Physician: Grady Mock Reason for Consult: YISEL FOR [place] MASS ON CT Time Spent in preparation of Discharge (in minutes): 35 Diagnosis - Discharge Diagnosis (1) Lung mass Status: Acute Priority: High (2) Weakness Status: Acute Priority: High Hospital Course - Lab Results Lab Results: Micro Results 01/21/19 11:58 Blood-Venous Blood Culture - Final NO GROWTH AFTER 5 DAYS 01/21/19 11:58 Blood-Venous Gram Stain - Final TEST NOT PERFORMED 01/21/19 11:21 Blood-Venous Blood Culture - Final NO GROWTH AFTER 5 DAYS 01/21/19 11:21 Blood-Venous Gram Stain - Final TEST NOT PERFORMED Most Recent Lab Values WBC 14.5 K/uL (4.8-10.8) H 01/30/19 07:59 RBC 3.38 Mil/uL (3.80-5.20) L 01/30/19 07:59 Hgb 8.8 g/dL (11.0-16.0) L 01/30/19 07:59 Hct 26.8 % (34.0-47.0) L 01/30/19 07:59 MCV 79.5 fL (81.0-99.0) L 01/30/19 07:59 MCH 25.9 pg (27.0-31.0) L 01/30/19 07:59 MCHC 32.6 g/dL (33.0-37.0) L 01/30/19 07:59 RDW 20.4 % (11.5-14.5) H 01/30/19 07:59 Plt Count 319 K/uL (130-400) 01/30/19 07:59 MPV 7.2 fL (7.2-11.7) 01/30/19 07:59 Neut % (Auto) 65.7 % (50.0-75.0) 01/30/19 07:59 Lymph % (Auto) 18.7 % (20.0-40.0) L 01/30/19 07:59 [place] % (Auto) 9.8 % (0.0-10.0) 01/30/19 07:59 Eos % (Auto) 4.6 % (0.0-4.0) H 01/30/19 07:59 Baso % (Auto) 1.2 % (0.0-2.0) 01/30/19 07:59 Neut # (Auto) 9.5 K/uL (1.8-7.0) H 01/30/19 07:59 Lymph # (Auto) 2.7 K/uL (1.0-4.3) 01/30/19 07:59 [place] # (Auto) 1.4 K/uL (0.0-0.8) H 01/30/19 07:59 Eos # (Auto) 0.7 K/uL (0.0-0.7) 01/30/19 07:59 Baso # (Auto) 0.2 K/uL (0.0-0.2) 01/30/19 07:59 PT 13.9 SECONDS (9.7-12.2) H 01/25/19 07:21 INR 1.3 01/25/19 07:21 APTT 34 SECONDS (21-34) 01/24/19 08:17 Sodium 135 mmol/L (132-148) 01/30/19 07:59 Potassium 4.3 mmol/L (3.6-5.2) 01/30/19 07:59 Chloride 105 mmol/L (98-107) 01/30/19 07:59 Carbon Dioxide 22 mmol/L (22-30) 01/30/19 07:59 Anion Gap 12 (10-20) 01/30/19 07:59 BUN 17 mg/dL (7-17) 01/30/19 07:59 Creatinine 0.7 mg/dL (0.7-1.2) 01/30/19 07:59 Est GFR ( Amer) > 60 01/30/19 07:59 Est GFR (Non-Af Amer) > 60 01/30/19 07:59 POC Glucose (mg/dL) 137 mg/dL (65-110) H 01/20/19 18:05 Random Glucose 101 mg/dL (65-105) 01/30/19 07:59 Calcium 9.1 mg/dl (8.6-10.4) 01/30/19 07:59 Phosphorus 4.9 mg/dL (2.5-4.5) H 01/30/19 07:59 Magnesium 1.7 mg/dL (1.6-2.3) 01/30/19 07:59 Total Bilirubin 0.4 mg/dL (0.2-1.3) 01/30/19 07:59 AST 20 U/L (14-36) 01/30/19 07:59 ALT 16 U/L (9-52) 01/30/19 07:59 Alkaline Phosphatase 74 U/L (38-126) 01/30/19 07:59 Troponin I 0.0780 ng/mL (0.00-0.120) 01/20/19 19:12 NT-Pro-B Natriuret Pep 1010 pg/mL (0-900) H 01/20/19 19:12 Total Protein 6.3 g/dL (6.3-8.3) 01/30/19 07:59 Albumin 3.0 g/dL (3.5-5.0) L 01/30/19 07:59 Globulin 3.3 gm/dL (2.2-3.9) 01/30/19 07:59 Albumin/Globulin Ratio 0.9 (1.0-2.1) L 01/30/19 07:59 TSH 3rd Generation 1.66 mIU/L (0.46-4.68) 01/20/19 19:12 Urine Color Yellow (YELLOW) 01/20/19 19:53 Urine Clarity Hazy (Clear) 01/20/19 19:53 Urine pH 5.0 (5.0-8.0) 01/20/19 19:53 Ur Specific [place] 1.008 (1.003-1.030) 01/20/19 19:53 Urine Protein Negative mg/dL (NEGATIVE) 01/20/19 19:53 Urine Glucose (UA) Normal mg/dL (Normal) 01/20/19 19:53 Urine Ketones Negative mg/dL (NEGATIVE) 01/20/19 19:53 Urine Blood 1+ (NEGATIVE) H 01/20/19 19:53 Urine Nitrate Negative (NEGATIVE) 01/20/19 19:53 Urine Bilirubin Negative (NEGATIVE) 01/20/19 19:53 Urine Urobilinogen Normal mg/dL (0.2-1.0) 01/20/19 19:53 Ur Leukocyte Esterase Neg [place]/uL (Negative) 01/20/19 19:53 Urine WBC (Auto) 5 /hpf (0-5) 01/20/19 19:53 Urine RBC (Auto) 2 /hpf (0-3) 01/20/19 19:53 Ur Squamous Epith Cells 2 /hpf (0-5) 01/20/19 19:53 Urine Bacteria Occ (<OCC) H 01/20/19 19:53 Blood Type O POSITIVE 01/22/19 17:21 Antibody Screen Negative 01/22/19 17:21 - Hospital Course Hospital Course: Chest x-ray done in emergency room shows a large mass in the right middle lobe and a calcified circular mass behind the stom gas bubble. CT of the chest is pending In February 2018 patient presented to emergency room complaining of 10-15 pound of weight loss and abdominal pain. During that time as CT of the abdomen was done which showed resolving pyelonephritis and also a nodule of 8 mm in the left lower lobe and another 5 minutes and noted on the right lung with a report of follow-up in 6-8 months CAT scan. On reviewing the Emergency Room physician's note there is no mention of follow-up for this mass but patient was refe urologist for kidney stone. BIOPSY OF THE R MASS SHOWED ADENO CA FURTHER W/U SHOWED METS TO BRAIN AND MASS IN LA THE ONCOLOGIST D/W PT AND FAMILY PT HAD ONE TREATMENT OF RT AT [facility] PT WILL HAVE YISEL OUT PT Discharge Exam - Head Exam Head Exam: ATRAUMATIC, NORMOCEPHALIC Discharge Plan - Follow Up Plan Condition: FAIR Disposition: DISCHARGED TO HOME CARE Instructions: Lung Cancer, Smoking: Not Just Harmful to Your Lungs and Heart, COPD Including Emphysema (DC) Additional Instructions: FOLLOW UP WITH DR THEODORE IN HIS OFFICE ------CALL FOR APPOINTMENT FOLLOW UP WITH DR MOCK IN HIS OFFICE -----CALL FOR APPOINTMENT ADDRESS YOUR YISEL AT YOUR VISIT FOLLOW UP WITH DR IBGGS -----CALL FOR APPOINTMENT FOLLOW WITH [facility] FOR RADIATION ORDERED ACTIVITY TOLERATED CALL DR THEODORE OR GO TO THE EMERGENCY ROOM IF SYMPTOM RETURN OR WORSENING Referrals: Torres Taylor MD [Staff Provider] - Sarika Biggs MD [Staff Provider] - Frank Batres MD [Staff Provider] - Ansley Theodore MD [Staff Provider] -
--- NOTE | 2019-02-02 22:03 | CP.PCM.PN ---
Subjective - Date & Time of Evaluation Date of Evaluation: 01/31/19 Time of Evaluation: 19:00 - Subjective Subjective: Seen by rad onc Objective - Vital Signs/Intake and Output Vital Signs (last 24 hours): Temp Pulse Resp BP Pulse Ox 98.1 F 98 H 20 126/69 98 02/01/19 15:00 02/01/19 15:00 02/01/19 15:00 02/01/19 15:00 02/01/19 15:00 - Labs Labs: 01/30/19 07:59 01/30/19 07:59 PT 13.9 SECONDS (9.7-12.2) H 01/25/19 07:21 INR 1.3 01/25/19 07:21 APTT 34 SECONDS (21-34) 01/24/19 08:17 - Head Exam Head Exam: ATRAUMATIC - Eye Exam Eye Exam: Normal appearance - ENT Exam ENT Exam: Mucous Membranes Dry - Respiratory Exam Respiratory Exam: NORMAL BREATHING PATTERN - Cardiovascular Exam Cardiovascular Exam: +S1, +S2 - GI/Abdominal Exam GI & Abdominal Exam: Normal Bowel Sounds Assessment and Plan (1) Lung cancer Assessment & Plan: stage IV brain mets - seen by rad onc; to start WBRT tomorrow outpatient systemic therapy Status: Acute (2) Anemia Assessment & Plan: chronic disease Status: Acute (3) Leukocytosis Status: Acute
--- NOTE | 2019-02-02 22:05 | CP.PCM.PN ---
Subjective - Date & Time of Evaluation Date of Evaluation: 02/01/19 Time of Evaluation: 12:00 - Subjective Subjective: To start radiation Objective - Vital Signs/Intake and Output Vital Signs (last 24 hours): Temp Pulse Resp BP Pulse Ox 98.1 F 98 H 20 126/69 98 02/01/19 15:00 02/01/19 15:00 02/01/19 15:00 02/01/19 15:00 02/01/19 15:00 - Labs Labs: 01/30/19 07:59 01/30/19 07:59 PT 13.9 SECONDS (9.7-12.2) H 01/25/19 07:21 INR 1.3 01/25/19 07:21 APTT 34 SECONDS (21-34) 01/24/19 08:17 - Head Exam Head Exam: ATRAUMATIC - Eye Exam Eye Exam: Normal appearance - ENT Exam ENT Exam: Mucous Membranes Dry - Respiratory Exam Respiratory Exam: NORMAL BREATHING PATTERN - Cardiovascular Exam Cardiovascular Exam: +S1, +S2 - GI/Abdominal Exam GI & Abdominal Exam: Normal Bowel Sounds Assessment and Plan (1) Lung cancer Assessment & Plan: stage IV liver, lung and brain metastasis to start WBRT today outpatient systemic therapy with me Status: Acute (2) Anemia Assessment & Plan: chronic disease Status: Acute (3) Leukocytosis Status: Acute
== END 2019-02-01 18:04 | disposition home health service (06) | DRG 541 ==
LOC: C.ER 17:38 → C.9E 19:52 → C.5S 22:35
PROVIDERS: ADMIT Internal Medicine Cardiovascular Disease; ATTEND Internal Medicine Cardiovascular Disease
PROC: 0BB43ZX Excision of Right Upper Lobe Bronchus, Percutaneous Approach, Diagnostic (ICD-10-PCS; principal; 2019-01-25)
PROC: BB24ZZZ Computerized Tomography (CT Scan) of Bilateral Lungs (ICD-10-PCS; 2019-01-25)
PROC: DBY27ZZ Contact Radiation of Lung (ICD-10-PCS; 2019-01-31)
DX: C34.11 Malignant neoplasm of upper lobe, right bronchus or lung (principal); C79.31 Secondary malignant neoplasm of brain; C78.7 Secondary malignant neoplasm of liver and intrahepatic bile duct; C78.02 Secondary malignant neoplasm of left lung; J44.0 Chronic obstructive pulmonary disease with (acute) lower respiratory infection; J18.9 Pneumonia, unspecified organism; N12 Tubulo-interstitial nephritis, not specified as acute or chronic; E11.22 Type 2 diabetes mellitus with diabetic chronic kidney disease; N18.9 Chronic kidney disease, unspecified; N28.89 Other specified disorders of kidney and ureter; F17.210 Nicotine dependence, cigarettes, uncomplicated; D63.0 Anemia in neoplastic disease; D72.829 Elevated white blood cell count, unspecified; N20.0 Calculus of kidney

== ENCOUNTER 2019-02-09 21:58 | Inpatient (IN) | payer MEDICAID ==
[2019-02-09 21:59] VITALS: BMI 20.1
[2019-02-09] MEDS ORDERED: Sodium Chloride 0.9% 1,000 ML IV ONE (22:21)
--- NOTE | 2019-02-09 22:56 | C.PDOC ---
History Of Present Illness 58 year old female recently diagnosed 3 weeks ago with adenocarcinoma lung with brain metastasis. She was discharged on 02/02. Patient was started on brain radiation several days ago. Patient is brought tonight by family for evaluati on. Patient's family report patient has been getting progressively weaker, refusing to eat or drink, not speaking and not following commands. Patient's daughter reports yesterday patient became incontinent of urine and stool. Time Seen by Provider: 02/09/19 22:13 Chief Complaint (Nursing): Weakness/Neurological Deficit History Per: Family History/Exam Limitations: clinical condition Onset/Duration Of Symptoms: Days Current Symptoms Are (Timing): Still Present Associated Symptoms Preceding Syncopal Episode: No Predromal Symptoms (Sudden Onset) Seizure Or Post-ictal Symptoms: None Possible Causative Factor(s): New Medications Fall Associated With With Symptoms: No Severity: None Recent travel outside of the [place]: No Additional History Per: Family Past Medical History Reviewed: Historical Data, Nursing Documentation, Vital Signs Vital Signs: Last Vital Signs Temp 97.5 F L 02/09/19 22:01 Pulse 111 H 02/09/19 22:01 Resp 16 02/09/19 22:01 BP 101/69 02/09/19 22:01 Pulse Ox 99 02/09/19 22:01 - Medical History PMH: Pancreatitis, Chronic Kidney Disease Surgical History: No Surg Hx - [facility] Procedures COMPUTERIZED TOMOGRAPHY (CT SCAN) OF BILATERAL LUNGS (01/20/19) CONTACT RADIATION OF LUNG (01/20/19) EXCISION OF RIGHT UPPER LOBE BRONCHUS, PERC APPROACH, DIAGN (01/20/19) URETERAL CATHETERIZATION (10/08/13) Family History: States: Unknown Family Hx - Social History Hx Tobacco Use: Yes Hx Alcohol Use: No (used to) Hx Substance Use: No - Immunization History Hx Tetanus Toxoid Vaccination: No Hx Influenza Vaccination: No Hx Pneumococcal Vaccination: No Review Of Systems Review Of Systems: ROS cannot be obtained secondary to pt's inabilty to answer questions. (Patient not following commands, non verbal) Physical Exam - Physical Exam Appears: Non-toxic, No Acute Distress, Other (non verbal) Skin: Normal Color, Warm, Dry Head: Atraumatic, Normacephalic Eye(s): bilateral: Normal Inspection Oral Mucosa: Moist Neck: Normal ROM, Supple Chest: Symmetrical Cardiovascular: Rhythm Regular Respiratory: Normal Breath Sounds, No Rales, No Rhonchi, No Wheezing Gastrointestinal/Abdominal: Soft, No Tenderness Extremity: Bilateral: Atraumatic, Normal Color And Temperature, Normal ROM (moving all extremities radomly) Neurological/Psych: Other (Patient non verbal, not following commands) ED Course And Treatment - Laboratory Results Result Diagrams: 02/09/19 22:57 02/09/19 22:57 Lab Interpretation: Abnormal (WBC 17.3, Hgb 9.7, BUN 40 Cr 1.1) ECG: Interpreted By Me ECG Rhythm: Sinus Tachycardia ECG Interpretation: Abnormal O2 Sat by Pulse Oximetry: 99 (ON RA) Pulse Ox Interpretation: Normal - Physician Consult Information Time Consulting Physician Contacted: 23:27 Physician Contacted: nAsley Theodore Outcome Of Conversation: Patient to be admitted for IV fluid rehydration and consideration for Hospice care. Medical Decision Making Medical Decision Making: Plan: * EKG * Labs * IV fluids * UA Disposition - Disposition Disposition: HOSPITALIZED Disposition Time: 23:28 Condition: FAIR Instructions: Weakness (ED) - POA Present On Arrival: None - Clinical Impression Clinical Impression: Weakness, Lung cancer, Anemia, Dehydration - Scribe Statement The provider has reviewed the documentation as recorded by the Scribe Donell Blas All medical record entries made by the Scribe were at my direction and personally dictated by me. I have reviewed the chart and agree that the record accurately reflects my personal performance of the history, physical exam, medical decision making, and the department course for this patient. I have also personally directed, reviewed, and agree with the discharge instructions and disposition.
[2019-02-09 23:01] LABS: BASO # 0.1 K/uL (0.0-0.2); BASO % 0.5 % (0.0-2.0); EOS # 0.8 K/uL (0.0-0.7); EOS % 4.9 % (0.0-4.0); HEMOGLOBIN 9.7 g/dL (11.0-16.0); LYMPH # 1.5 K/uL (1.0-4.3); LYMPH % 8.8 % (20.0-40.0); MEAN CELL VOLUME 78.3 fL (81.0-99.0); MEAN CORPUSCULAR HEMOGLOBIN 25.9 pg (27.0-31.0); MEAN CORPUSCULAR HGB CONC 33.1 g/dL (33.0-37.0); MEAN PLATELET VOLUME 6.8 fL (7.2-11.7); MONO # 2.2 K/uL (0.0-0.8); MONO % 12.8 % (0.0-10.0); NEUT # 12.6 K/uL (1.8-7.0); PLATELET COUNT 282 K/uL (130-400); RBC 3.74 Mil/uL (3.80-5.20); RED CELL DISTRIBUTION WIDTH 20.4 % (11.5-14.5); WHITE BLOOD COUNT 17.3 K/uL (4.8-10.8)
[2019-02-09 23:15] LABS: ALB/GLOB RATIO 0.9 (1.0-2.1); ALBUMIN 3.3 g/dL (3.5-5.0); ALT/SGPT 28 U/L (9-52); AST/SGOT 27 U/L (14-36); BLOOD UREA NITROGEN 40 mg/dL (7-17); CALCIUM 9.3 mg/dl (8.6-10.4); GFR NON-AFRICAN AMERICAN 51
[2019-02-09 23:35] LABS: BANDS 13 % (0-2); LYMPHOCYTE 8 % (20-40); TOTAL CELLS COUNTED 100
[2019-02-09 23:36] LABS: EOSINOPHIL 9 % (0-4); MONOCYTE 12 % (0-10); NEUTROPHIL 58 % (50-75)
[2019-02-09 23:37] LABS: PLATELET ESTIMATE NORMAL (NORMAL)
[2019-02-09 23:38] LABS: BURR CELLS SLIGHT; HYPOCHROMIC SLIGHT; MICROCYTOSIS SLIGHT; OVALOCYTES SLIGHT
[2019-02-09 23:40] LABS: LARGE PLATELETS PRESENT
[2019-02-10] MEDS ORDERED: Dextrose 5%/0.9% NS 1,000 ML IV ONE ×2 (00:06→00:43)
[2019-02-10] MEDS ORDERED: Sodium Chloride 0.9% 250 ML IV ONE (00:06)
[2019-02-10] MEDS: cefTRIAXone IV 1 gm in Dextros 1 GM in Dextrose 5% In Water 50 ML IVPB SCH ×2 (00:45→11:49)
[2019-02-10] MEDS: Enoxaparin 30 mg Syringe SC SCH (10:06)
--- NOTE | 2019-02-10 11:24 | CP.PCM.PN ---
Subjective - Date & Time of Evaluation Date of Evaluation: 02/10/19 Time of Evaluation: 11:00 - Subjective Subjective: Ms Catalan is a 58 year old female who is known to our department. Her oncologist is Dr Frank Batres. She is currently getting whole brain radiation therapy. She was having decreased appetite and generalized weakness from poor oral intake. She was on megace. However, as per our conversation with the family this morning, she acutely had mental status changes that developed late yesterday. When we had seen her on Thu, she was verbal and and fully alert. Of note, during her last hospitalization in January, she did have a filling defect in the left ventricle that was worrisome on CT scan. She never had the YISEL as an in or outpatient To ascertain the etiology of her acute neurologic changes, we have ordered a STAT MRI of the brain. It is unclear whether she could tumor emboli, bleed, etc... Objective - Vital Signs/Intake and Output Vital Signs (last 24 hours): Temp Pulse Resp BP Pulse Ox 98.3 F 98 H 20 99/62 L 97 02/10/19 08:45 02/10/19 08:45 02/10/19 08:45 02/10/19 08:45 02/10/19 08:45 Intake and Output: 02/10/19 02/10/19 06:59 18:59 Intake Total 500 Balance 500 - Medications Medications: Current Medications Enoxaparin Sodium (Lovenox) 30 mg SC DAILY SHILOH Last Admin: 02/10/19 10:06 Dose: Not Given Ceftriaxone Sodium 1 gm/ (Dextrose) 100 mls @ 50 mls/30 min IVPB Q12H SHILOH; Protocol Last Admin: 02/10/19 00:45 Dose: 50 mls/30 min - Labs Labs: 02/09/19 22:57 02/09/19 22:57
[2019-02-10] MEDS ORDERED: Gadodiamide 287 MG/ML VIAL (15ML) IV ONE (11:27)
--- NOTE | 2019-02-10 12:31 | MRI ---
Date of service: 02/10/2019 PROCEDURE: MRI BRAIN WITH AND WITHOUT CONTRAST HISTORY: patient is acutely aphasic r/o emboli or bleed. History of lung cancer COMPARISON: CT head without contrast from 02/06/2019. TECHNIQUE: Multiplanar, multisequence MR images of the brain were obtained with and without intravenous contrast enhancement. 9 mL Omniscan was injected intravenously. FINDINGS: HEMORRHAGE: None DWI: There are multifocal areas of restricted diffusion in the left frontal cortex and subcortical white matter, insular cortex and left parieto-occipital watershed territory. There are also small areas of restricted diffusion in the right cardoza radiata, parietal cortex and parieto-occipital watershed territory. There are multiple smaller foci of restricted diffusion in the right cerebellar hemisphere. BRAIN PARENCHYMA: There are chronic lacunar infarctions in bilateral centrum semiovale, right cardoza radiata, right frontal subcortical white matter and left cerebellar hemisphere. There are also smaller chronic infarctions in the right parietal cortex and left subcortical white matter. There are mild chronic microangiopathic changes. There is a small lacunar in the right thalamus. Asymmetric T1 hyperintensity in the right caudate head likely represents calcification. There is no mass, mass effect or abnormal extra-axial fluid collection. ENHANCEMENT: There is asymmetric curvilinear enhancement in the right parietal cortex and left frontal cortex corresponding to T2 hyperintensity. VENTRICLES: There is moderate age-related global parenchymal volume loss and proportionate enlargement of the ventricles and cortical sulci. CRANIUM: There is normal bone marrow signal pattern. ORBITS: Grossly unremarkable. PARANASAL SINUSES/MASTOIDS: Paranasal sinuses are predominantly clear. Small mastoid effusions. VASCULAR SYSTEM: There are normal signal voids in the larger intracranial arteries. OTHER FINDINGS: None . IMPRESSION: 1. Multifocal acute infarctions in the left frontal cortex, insula, frontal subcortical white matter, parieto-occipital watershed territory, right cardoza radiata and right parietal cortex as well as right parieto-occipital watershed territory and smaller infarctions in right cerebellar hemisphere. The pattern of distribution is a combination of embolic and watershed territory infarctions. 2. Multiple chronic lacunar infarctions as described above. 3. Asymmetric curvilinear enhancement in the right parietal cortex and left frontal cortex could represent subacute infarctions. 4. No definite enhancing lesions suggestive of metastatic disease in the brain. Important findings were discussed with nurse Strauss on the floor and Dr Biggs on 02/10/2019 after the scan was performed.
--- NOTE | 2019-02-10 12:38 | CP.PCM.HP ---
History of Present Illness - History of Present Illness History of Present Illness: 58 year old female recently diagnosed 3 weeks ago with adenocarcinoma lung with brain metastasis. She was discharged on 02/02. Patient was started on brain radiation several days ago. Patient is brought tonight by family for evaluation . Patient's family report patient has been getting progressively weaker, refusing to eat or drink, not speaking and not following commands. Patient's daughter reports yesterday patient became incontinent of urine and stool. PT WAS SCEDUALED FOR OUT PT YISEL FOR MASS IN [place] NO ANTICOAGULATION GIVEN DUE TO MULTIPLE METS IN BRAIN MRI DONE SHOWS SCATTERED INFARCT BOTH HEMISPHERE COULD BE TUMOR EMBOLI Present on Admission - Present on Admission Any Indicators Present on Admission: No Review of Systems - Review of Systems All systems: reviewed and no additional remarkable complaints except (DOWSY) Past Patient History - Infectious Disease Hx of Infectious Diseases: None - Past Medical History & Family History Past Medical History?: Yes - Past Social History Smoking Status: Former Smoker - CARDIAC Hx Cardiac Disorders: No - PULMONARY Hx Respiratory Disorders: No Hx Lung Cancer: Yes (january 20, 2019) Other/Comment: radiation started 2018 for tumor in the head - NEUROLOGICAL Hx Neurological Disorder: No - HEENT Hx HEENT Problems: No - RENAL Hx Chronic Kidney Disease: Yes - ENDOCRINE/METABOLIC Hx Endocrine Disorders: Yes Hx Diabetes Mellitus Type 2: Yes - HEMATOLOGICAL/ONCOLOGICAL Hx Blood Disorders: No - INTEGUMENTARY Hx Dermatological Problems: No - MUSCULOSKELETAL/RHEUMATOLOGICAL Hx Musculoskeletal Disorders: No Hx Falls: No - GASTROINTESTINAL Hx Pancreatitis: Yes - GENITOURINARY/GYNECOLOGICAL Hx Genitourinary Disorders: No - PSYCHIATRIC Hx Substance Use: No - SURGICAL HISTORY Hx Surgeries: No Other/Comment: Kidney Stents - ANESTHESIA Hx Anesthesia: Yes Hx Anesthesia Reactions: No Hx Malignant Hyperthermia: No Meds Allergies/Adverse Reactions: Allergies Allergy/AdvReac Type Severity Reaction Status Date / Time No Known Allergies Allergy Verified 01/20/19 18:21 Physical Exam - Constitutional Appears: Cachectic - Head Exam Head Exam: ATRAUMATIC, NORMAL INSPECTION, NORMOCEPHALIC - ENT Exam ENT Exam: Mucous Membranes Dry - Neck Exam Neck exam: Positive for: Normal Inspection. Negative for: Lymphadenopathy - Respiratory Exam Respiratory Exam: Rhonchi - Cardiovascular Exam Cardiovascular Exam: Tachycardia - GI/Abdominal Exam GI & Abdominal Exam: Soft. absent: Tenderness - Extremities Exam Extremities exam: Negative for: calf tenderness, pedal edema - Neurological Exam Neurological exam: Altered Results - Vital Signs Recent Vital Signs: Last Vital Signs Temp 98.3 F 02/10/19 08:45 Pulse 98 H 02/10/19 08:45 Resp 20 02/10/19 08:45 BP 99/62 L 02/10/19 08:45 Pulse Ox 97 02/10/19 08:45 - Labs Result Diagrams: 02/09/19 22:57 02/09/19 22:57 Labs: Laboratory Results - last 24 hr 02/09/19 02/09/19 22:57 22:57 WBC 17.3 H RBC 3.74 L Hgb 9.7 L Hct 29.3 L MCV 78.3 L MCH 25.9 L MCHC 33.1 RDW 20.4 H Plt Count 282 MPV 6.8 L Neut % (Auto) 73.0 Lymph % (Auto) 8.8 L [place] % (Auto) 12.8 H Eos % (Auto) 4.9 H Baso % (Auto) 0.5 Neut # (Auto) 12.6 H Lymph # (Auto) 1.5 [place] # (Auto) 2.2 H Eos # (Auto) 0.8 H Baso # (Auto) 0.1 Neutrophils % (Manual) 58 Band Neutrophils % 13 H* Lymphocytes % (Manual) 8 L Monocytes % (Manual) 12 H Eosinophils % (Manual) 9 H Platelet Estimate Normal Large Platelets Present Hypochromasia (manual) Slight Microcytosis (manual) Slight Ovalocytes Slight [place] Cells Slight Sodium 134 Potassium 4.3 Chloride 102 Carbon Dioxide 20 L Anion Gap 17 BUN 40 H Creatinine 1.1 Est GFR ( Amer) > 60 Est GFR (Non-Af Amer) 51 Random Glucose 122 H D Calcium 9.3 Magnesium 2.0 Total Bilirubin 0.8 AST 27 ALT 28 Alkaline Phosphatase 95 Total Protein 7.0 Albumin 3.3 L Globulin 3.6 Albumin/Globulin Ratio 0.9 L Assessment & Plan (1) Tumor embolus Status: Acute (2) Dehydration Status: Acute (3) Lung cancer Status: Acute
--- NOTE | 2019-02-10 14:51 | CP.PCM.CON ---
History of Present Illness - History of Present Illness History of Present Illness: Neurology Consultation Note: Consult requested by Dr. Panchal Mrs. 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 MRI of the brain was done and showed evidence of multiple embolic appearing acute ischemic infarcts in both hemispheres and in the anterior and posterior circualtion. There has been some concern in the past that the patient may have either a cardiac thrombus or a possible tumor either in the left ventricle or extending from the undelrying lung mass. This was viewed on TTE, and a YISEL was planned as an outpatient, but it was not done yet. When I saw the patient, two of her children were at bedside and assisted with the history. The patient was mute, but did follow some simple commands. Review of Systems - Review of Systems Systems not reviewed;Unavailable: Altered Mental Status Past Patient History - Infectious Disease Hx of Infectious Diseases: None - Past Medical History & Family History Past Medical History?: Yes - Past Social History Smoking Status: Former Smoker - CARDIAC Hx Cardiac Disorders: No - PULMONARY Hx Respiratory Disorders: No Hx Lung Cancer: Yes (january 20, 2019) Other/Comment: radiation started 2018 for tumor in the head - NEUROLOGICAL Hx Neurological Disorder: No - HEENT Hx HEENT Problems: No - RENAL Hx Chronic Kidney Disease: Yes - ENDOCRINE/METABOLIC Hx Endocrine Disorders: Yes Hx Diabetes Mellitus Type 2: Yes - HEMATOLOGICAL/ONCOLOGICAL Hx Blood Disorders: No - INTEGUMENTARY Hx Dermatological Problems: No - MUSCULOSKELETAL/RHEUMATOLOGICAL Hx Musculoskeletal Disorders: No Hx Falls: No - GASTROINTESTINAL Hx Pancreatitis: Yes - GENITOURINARY/GYNECOLOGICAL Hx Genitourinary Disorders: No - PSYCHIATRIC Hx Substance Use: No - SURGICAL HISTORY Hx Surgeries: No Other/Comment: Kidney Stents - ANESTHESIA Hx Anesthesia: Yes Hx Anesthesia Reactions: No Hx Malignant Hyperthermia: No Meds Allergies/Adverse Reactions: Allergies Allergy/AdvReac Type Severity Reaction Status Date / Time No Known Allergies Allergy Verified 01/20/19 18:21 - Medications Medications: Current Medications Aspirin (Ecotrin) 81 mg PO DAILY [facility] Enoxaparin Sodium (Lovenox) 30 mg SC DAILY [facility] Last Admin: 02/10/19 10:06 Dose: Not Given Ceftriaxone Sodium 1 gm/ (Dextrose) 100 mls @ 50 mls/30 min IVPB Q12H [facility]; Pr otocol Last Admin: 02/10/19 11:49 Dose: 50 mls/30 min Levetiracetam (Keppra) 500 mg PO BID [facility] Physical Exam - Constitutional Appears: Cachectic - Head Exam Head Exam: ATRAUMATIC, NORMAL INSPECTION, NORMOCEPHALIC - Eye Exam Eye Exam: EOMI, Normal appearance, PERRL - ENT Exam ENT Exam: Mucous Membranes Moist, Normal Exam - Neck Exam Neck exam: Positive for: Normal Inspection - Respiratory Exam Respiratory Exam: Decreased Breath Sounds, Rales, Rhonchi - Cardiovascular Exam Cardiovascular Exam: REGULAR RHYTHM, +S1, +S2, Systolic Murmur - GI/Abdominal Exam GI & Abdominal Exam: Normal Bowel Sounds, Soft. absent: Tenderness - Rectal Exam Rectal Exam: Deferred - Extremities Exam Extremities exam: Positive for: normal inspection - Back Exam Back exam: NORMAL INSPECTION - Neurological Exam Neurological exam: Abnormal Gait, Altered, CN II-XII Intact Additional comments: Generalized weakness, with left arm pronator drift. Productive and receptive aphasia. Staring episodes noted. Tracks fingers at times, other times does not follow. No abnormal movements noted. Reflexes are brisk. Results - Vital Signs Recent Vital Signs: Last Vital Signs Temp 98.3 F 02/10/19 08:45 Pulse 98 H 02/10/19 08:45 Resp 20 02/10/19 08:45 BP 99/62 L 02/10/19 08:45 Pulse Ox 97 02/10/19 08:45 - Labs Result Diagrams: 02/09/19 22:57 02/09/19 22:57 Labs: Laboratory Results - last 24 hr 02/09/19 02/09/19 22:57 22:57 WBC 17.3 H RBC 3.74 L Hgb 9.7 L Hct 29.3 L MCV 78.3 L MCH 25.9 L MCHC 33.1 RDW 20.4 H Plt Count 282 MPV 6.8 L Neut % (Auto) 73.0 Lymph % (Auto) 8.8 L [place] % (Auto) 12.8 H Eos % (Auto) 4.9 H Baso % (Auto) 0.5 Neut # (Auto) 12.6 H Lymph # (Auto) 1.5 [place] # (Auto) 2.2 H Eos # (Auto) 0.8 H Baso # (Auto) 0.1 Neutrophils % (Manual) 58 Band Neutrophils % 13 H* Lymphocytes % (Manual) 8 L Monocytes % (Manual) 12 H Eosinophils % (Manual) 9 H Platelet Estimate Normal Large Platelets Present Hypochromasia (manual) Slight Microcytosis (manual) Slight Ovalocytes Slight [place] Cells Slight Sodium 134 Potassium 4.3 Chloride 102 Carbon Dioxide 20 L Anion Gap 17 BUN 40 H Creatinine 1.1 Est GFR ( Amer) > 60 Est GFR (Non-Af Amer) 51 Random Glucose 122 H D Calcium 9.3 Magnesium 2.0 Total Bilirubin 0.8 AST 27 ALT 28 Alkaline Phosphatase 95 Total Protein 7.0 Albumin 3.3 L Globulin 3.6 Albumin/Globulin Ratio 0.9 L Assessment & Plan (1) Ischemic stroke Assessment and Plan: These infarcts appear to be embolic in origin. A YISEL is recommended. Will start her on aspirin 81 mg daily for now; however, pending the results of the YISEL, anticoagulation may be indicated (i.e. if there is a cardiac thrombus present). There is a slight risk of hemorrhagic conversion of the infarcts, but the benefit would outweigh the risk if there is a cardiac thrombus. Otherwise, continue conservative management per the primary team with fluids (NS at 100 mL/ hr), lipitor 40 mg daily, and normalize BP since these infarcts are of different ages. Status: Acute (2) Acute encephalopathy Assessment and Plan: She may be having complex partial seizures considering the staring episodes. I will order an EEG and start her on Keppra 500 mg BID. Thank you for this consultation. Status: Acute
--- NOTE | 2019-02-10 17:32 | CP.PCM.CON ---
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 Per the patients family, she began to become confused and unable to verbalize and was brought to the hospital. An MRI of the brain revealed multiple infarcts and concern to embolic disease. She is to have a YISEL for further evaluation of the left ventricle mass/thrombus. Past medical history: single functioning kidney, tobacco abuse, lung cancer Past surgical history: Tubal ligation Family history: Denies hematologic and oncologic problems Social history: 1ppd x 40 years Allergies: NKA Review of systems: All remaining review of systems including HEENT, cardiovascular, respiratory, gastrointestinal, genitourinary, musculoskeletal, dermatologic, neurologic, and psychiatric are negative unless mentioned in the HPI. Past Patient History - Infectious Disease Hx of Infectious Diseases: None - Past Medical History & Family History Past Medical History?: Yes - Past Social History Smoking Status: Former Smoker - CARDIAC Hx Cardiac Disorders: No - PULMONARY Hx Respiratory Disorders: No Hx Lung Cancer: Yes (january 20, 2019) Other/Comment: radiation started 2018 for tumor in the head - NEUROLOGICAL Hx Neurological Disorder: No - HEENT Hx HEENT Problems: No - RENAL Hx Renal Failure: Yes - ENDOCRINE/METABOLIC Hx Diabetes Mellitus Type 2: Yes - HEMATOLOGICAL/ONCOLOGICAL Hx Blood Disorders: No - INTEGUMENTARY Hx Dermatological Problems: No - MUSCULOSKELETAL/RHEUMATOLOGICAL Hx Musculoskeletal Disorders: No Hx Falls: No - GASTROINTESTINAL Hx Pancreatitis: Yes - GENITOURINARY/GYNECOLOGICAL Hx Genitourinary Disorders: No - PSYCHIATRIC Hx Substance Use: No - SURGICAL HISTORY Hx Surgeries: No Other/Comment: Kidney Stents - ANESTHESIA Hx Anesthesia: Yes Hx Anesthesia Reactions: No Hx Malignant Hyperthermia: No Meds Allergies/Adverse Reactions: Allergies Allergy/AdvReac Type Severity Reaction Status Date / Time No Known Allergies Allergy Verified 01/20/19 18:21 - Medications Medications: Current Medications Aspirin (Ecotrin) 81 mg PO DAILY [facility] Last Admin: 02/10/19 14:44 Dose: 81 mg Enoxaparin Sodium (Lovenox) 30 mg SC DAILY [facility] Last Admin: 02/10/19 10:06 Dose: Not Given Ceftriaxone Sodium 1 gm/ (Dextrose) 100 mls @ 50 mls/30 min IVPB Q12H [facility]; Protocol Last Admin: 02/10/19 11:49 Dose: 50 mls/30 min Levetiracetam (Keppra) 500 mg PO BID [facility] Physical Exam - Head Exam Head Exam: ATRAUMATIC - Eye Exam Eye Exam: Normal appearance - ENT Exam ENT Exam: Mucous Membranes Dry - Respiratory Exam Respiratory Exam: NORMAL BREATHING PATTERN - Cardiovascular Exam Cardiovascular Exam: +S1, +S2 - GI/Abdominal Exam GI & Abdominal Exam: Normal Bowel Sounds - Extremities Exam Extremities exam: Positive for: normal inspection - Neurological Exam Neurological exam: Oriented x3 - Psychiatric Exam Psychiatric exam: Flat Affect - Skin Skin Exam: Warm Results - Vital Signs Recent Vital Signs: Last Vital Signs Temp 98.6 F 02/10/19 17:16 Pulse 103 H 02/10/19 17:16 Resp 20 02/10/19 17:16 BP 109/70 02/10/19 17:16 Pulse Ox 98 02/10/19 17:16 - Labs Result Diagrams: 02/09/19 22:57 02/09/19 22:57 Labs: Laboratory Results - last 24 hr 02/09/19 02/09/19 22:57 22:57 WBC 17.3 H RBC 3.74 L Hgb 9.7 L Hct 29.3 L MCV 78.3 L MCH 25.9 L MCHC 33.1 RDW 20.4 H Plt Count 282 MPV 6.8 L Neut % (Auto) 73.0 Lymph % (Auto) 8.8 L [place] % (Auto) 12.8 H Eos % (Auto) 4.9 H Baso % (Auto) 0.5 Neut # (Auto) 12.6 H Lymph # (Auto) 1.5 [place] # (Auto) 2.2 H Eos # (Auto) 0.8 H Baso # (Auto) 0.1 Neutrophils % (Manual) 58 Band Neutrophils % 13 H* Lymphocytes % (Manual) 8 L Monocytes % (Manual) 12 H Eosinophils % (Manual) 9 H Platelet Estimate Normal Large Platelets Present Hypochromasia (manual) Slight Microcytosis (manual) Slight Ovalocytes Slight [place] Cells Slight Sodium 134 Potassium 4.3 Chloride 102 Carbon Dioxide 20 L Anion Gap 17 BUN 40 H Creatinine 1.1 Est GFR ( Amer) > 60 Est GFR (Non-Af Amer) 51 Random Glucose 122 H D Calcium 9.3 Magnesium 2.0 Total Bilirubin 0.8 AST 27 ALT 28 Alkaline Phosphatase 95 Total Protein 7.0 Albumin 3.3 L Globulin 3.6 Albumin/Globulin Ratio 0.9 L Assessment & Plan (1) Mass of left cardiac ventricle Assessment and Plan: rule out thrombus vs tumor for YISEL if YISEL shows thrombus - recommend therapeutic anticoagulation Status: Acute (2) Anemia Assessment and Plan: retic count, b12, folate, ferritin, hgb electropheresis Status: Acute (3) Leukocytosis Assessment and Plan: ? reactive to steroids ? reactive to malignancy ? infection Status: Acute (4) Lung cancer Assessment and Plan: stage IV liver and brain metastasis undergoing whole brain radiotherapy outpatient chemotherapy Thank you for this interesting consult. Status: Acute
[2019-02-10] MEDS: levETIRAcetam 500 MG in Sodium Chloride 0.9% 100 ML IVPB SCH (21:53)
[2019-02-10] MEDS: Dextrose 5%/0.9% NS 1,000 ML IV SCH (21:54)
[2019-02-11] MEDS: cefTRIAXone IV 1 gm in Dextros 1 GM in Dextrose 5% In Water 50 ML IVPB SCH ×3 (01:45→23:49)
[2019-02-11] MEDS: Dextrose 5%/0.9% NS 1,000 ML IV SCH ×2 (05:18→08:41)
[2019-02-11] MEDS ORDERED: Lidocaine 4% (Laryng-O-Jet) Kit MM ONE (07:36)
[2019-02-11 08:31] LABS: ALB/GLOB RATIO 0.8 (1.0-2.1); ALBUMIN 2.5 g/dL (3.5-5.0); ALT/SGPT 10 U/L (9-52); AST/SGOT 19 U/L (14-36); BLOOD UREA NITROGEN 17 mg/dL (7-17); CALCIUM 8.3 mg/dl (8.6-10.4); GFR NON-AFRICAN AMERICAN > 60
[2019-02-11] MEDS: levETIRAcetam 500 MG in Sodium Chloride 0.9% 100 ML IVPB SCH ×2 (10:15→18:17)
[2019-02-11] MEDS: Enoxaparin 30 mg Syringe SC SCH (10:15)
--- NOTE | 2019-02-11 10:16 | CP.PCM.CON ---
History of Present Illness - History of Present Illness History of Present Illness: Patient's YISEL concelled for today as patient is on 24 hr EEG monitoring Rescheduled for Thursday Past Patient History - Infectious Disease Hx of Infectious Diseases: None - Past Medical History & Family History Past Medical History?: Yes - Past Social History Smoking Status: Former Smoker - CARDIAC Hx Cardiac Disorders: No - PULMONARY Hx Respiratory Disorders: No Hx Lung Cancer: Yes (january 20, 2019) Other/Comment: radiation started 2018 for tumor in the head - NEUROLOGICAL Hx Neurological Disorder: No - HEENT Hx HEENT Problems: No - RENAL Hx Renal Failure: Yes - ENDOCRINE/METABOLIC Hx Diabetes Mellitus Type 2: Yes - HEMATOLOGICAL/ONCOLOGICAL Hx Blood Disorders: No - INTEGUMENTARY Hx Dermatological Problems: No - MUSCULOSKELETAL/RHEUMATOLOGICAL Hx Musculoskeletal Disorders: No Hx Falls: No - GASTROINTESTINAL Hx Pancreatitis: Yes - GENITOURINARY/GYNECOLOGICAL Hx Genitourinary Disorders: No - PSYCHIATRIC Hx Substance Use: No - SURGICAL HISTORY Hx Surgeries: No Other/Comment: Kidney Stents - ANESTHESIA Hx Anesthesia: Yes Hx Anesthesia Reactions: No Hx Malignant Hyperthermia: No Meds Allergies/Adverse Reactions: Allergies Allergy/AdvReac Type Severity Reaction Status Date / Time No Known Allergies Allergy Verified 01/20/19 18:21 - Medications Medications: Current Medications Aspirin (Ecotrin) 81 mg PO DAILY [facility] Last Admin: 02/11/19 10:07 Dose: Not Given Enoxaparin Sodium (Lovenox) 30 mg SC DAILY [facility] Last Admin: 02/10/19 10:06 Dose: Not Given Ceftriaxone Sodium 1 gm/ (Dextrose) 100 mls @ 50 mls/30 min IVPB Q12H [facility]; Protocol Last Admin: 02/11/19 01:45 Dose: 50 mls/30 min Dextrose/Sodium Chloride (Dextrose 5%/0.9% Ns 1000 Ml) 1,000 mls @ 100 mls/hr IV .Q10H [facility] Last Admin: 02/11/19 08:41 Dose: 100 mls/hr Levetiracetam 500 mg/ Sodium (Chloride) 105 mls @ 420 mls/hr IVPB BID [facility] Last Admin: 02/10/19 21:53 Dose: 420 mls/hr Results - Vital Signs Recent Vital Signs: Last Vital Signs Temp 99 F 02/11/19 07:00 Pulse 94 H 02/11/19 07:00 Resp 20 02/11/19 07:00 BP 100/67 02/11/19 07:00 Pulse Ox 94 L 02/11/19 07:00 - Labs Result Diagrams: 02/09/19 22:57 02/11/19 08:05 Labs: Laboratory Results - last 24 hr 02/11/19 08:05 Sodium 138 Potassium 3.5 L Chloride 111 H Carbon Dioxide 20 L Anion Gap 11 BUN 17 Creatinine 0.8 Est GFR ( Amer) > 60 Est GFR (Non-Af Amer) > 60 Random Glucose 121 H Calcium 8.3 L Total Bilirubin 0.4 AST 19 ALT 10 Alkaline Phosphatase 81 Total Protein 5.6 L Albumin 2.5 L D Globulin 3.0 Albumin/Globulin Ratio 0.8 L
--- NOTE | 2019-02-11 11:28 | PCM.VEEG ---
Video EEG - Procedure Start Date: 02/10/19 Start Time: 16:25 End Date: 02/11/19 End Time: 08:10 Technical Summary: DATA ACQUISITION: This was a multichannel inpatient video-EEG, a minimum of 22 channels were uti lized, performed in accordance with recommendations specified by the [place] [employer] (Rinku Locke et al. ACNS Guideline 1: Minimum Technical Requirements for Performing Clinical Electroencephalography. Journal of Clinical Neurophysiology 2016;33:303-7). The 10-20 electrode placement system was utilized in accordance with guidelines detailed by the International Federation of Clinical Neurophysiology (Benny Simpson et al. The Ten-Twenty Electrode System of the International Federation. Recommendations for the Practice of Clinical Neurophysiology: Guidelines of the International Federation of Clinical Physiology 1999; EEG Suppl. 52.). DATA REVIEW / SPIKE DETECTION / DIGITAL ANALYSIS: The entire EEG was scanned and reviewed. Synchronized audio and video recording were reviewed at the time of each alarm and whenever an abnormality or suspicious activity was noted. The entire recording was analyzed utilizing an automated digital spike and seizure analysis program and all automatic spike and seizure detections were manually reviewed. A compressed spectral array was displayed and reviewed alongside the raw EEG tracings. In addition, further analysis of the EEG was performed when abnormalities were identified, including montage changes, dipole source localization, and frequency band identification. Video portion of the study is necessary to correlate abnormal EEG activity with clinical behavior. This study was attended 24 hours per day. - Interpretation Description of the study: Indication; subclinical seizures. EEG Finding during wakefulness: During active states, the EEG was characterized by 10-20 Hz, 15-30 uV activity bilaterally in fronto-central regions, with slightly slower frequencies and higher amplitudes emerging on the right. Resting wakefulness was characterized by a symmetric posterior dominant rhythm of 8-9 Hz, 30-50 uV, which was reactive to eye opening and closing, with greater amplitudes on the right. Drowsiness was associated with slow roving eye movements, slowing and fragmentation of the posterior dominant rhythm, and bilateral 4-7 Hz, 40-70 uV theta activity, sometimes with a shifting predominance. EEG Finding during sleep: Light sleep was recorded and was characterized by fronto-central slowing at 5-7 H, 50-125 uV, sharp central vertex waves, bilateral sleep spindles, and K- complexes; shifting asymmetries were evident. Deeper stages of sleep were recorded and were characterized an increasing frequency of 1-4 Hz, 50-100 uV delta activity. REM sleep was also recorded and was characterized by mixed frequency (3-15 Hz) low voltage (< 20 uV) activity with clusters of rapid horizontal and vertical eye moveme Interictal non-epileptiform abnormalities: : Throughout the recording, there was evidence of intermittent left temporal 3-6 Hz, 30-75 uV slowing. Interictal epileptiform abnormalities: No seizures, no PB activations. Ictal epileptiform abnormalities: NO seizures - Impression Impression: This is an abnormal video-EEG monitoring study due to the presence of 1- Left temporal intermittent slowing. No interictal activity seen. No seizures. INTERPRETATION: The findings are in keeping with a focal cortical abnormality involving the left temporal area, in keeping with a structural abnormality in the same area.
--- NOTE | 2019-02-11 14:08 | CP.PCM.PN ---
Subjective - Date & Time of Evaluation Date of Evaluation: 02/11/19 Time of Evaluation: 14:07 - Subjective Subjective: neurology and cardiology evaluation noted YISEL on Thursday Clinically remained same Continue IV fluids and neuro monitoring Discussed with the family Objective - Vital Signs/Intake and Output Vital Signs (last 24 hours): Temp Pulse Resp BP Pulse Ox 99 F 94 H 20 100/67 94 L 02/11/19 07:00 02/11/19 07:00 02/11/19 07:00 02/11/19 07:00 02/11/19 07:00 Intake and Output: 02/11/19 02/11/19 11:59 23:59 Intake Total 800 Balance 800 - Medications Medications: Current Medications Aspirin (Ecotrin) 81 mg PO DAILY [facility] Last Admin: 02/11/19 10:07 Dose: Not Given Enoxaparin Sodium (Lovenox) 30 mg SC DAILY [facility] Last Admin: 02/11/19 10:15 Dose: 30 mg Ceftriaxone Sodium 1 gm/ (Dextrose) 100 mls @ 50 mls/30 min IVPB Q12H [facility]; Protocol Last Admin: 02/11/19 12:25 Dose: 50 mls/30 min Dextrose/Sodium Chloride (Dextrose 5%/0.9% Ns 1000 Ml) 1,000 mls @ 100 mls/hr IV .Q10H [facility] Last Admin: 02/11/19 08:41 Dose: 100 mls/hr Levetiracetam 500 mg/ Sodium (Chloride) 105 mls @ 420 mls/hr IVPB BID [facility] Last Admin: 02/11/19 10:15 Dose: 420 mls/hr Potassium Chloride (Potassium Chloride 10 Meq/100 Ml) 10 meq in 100 mls @ 100 mls/hr IVPB ONCE ONE Stop: 02/11/19 14:59 - Labs Labs: 02/09/19 22:57 02/11/19 08:05 Assessment and Plan (1) Tumor embolus Status: Acute (2) Dehydration Status: Acute (3) Lung cancer Status: Acute
--- NOTE | 2019-02-11 15:19 | CP.PCM.PN ---
<Karishma Orantes Y - Last Filed: 02/11/19 16:22> Subjective - Date & Time of Evaluation Date of Evaluation: 02/11/19 Time of Evaluation: 11:00 - Subjective Subjective: PGY-1 Neurology Progress Note for Dr. Mckeon Patient was seen and examined today in no acute distress with two daughters at bedside. Nurse reports no overnight events, however, daughters and not patient is pressing the button for the EEG. Patient remains minimally responsive and unable to participate in interview. She was energetic enough to follow simple commands, but usually too weak to carry them through. Daughters at bedside said patient remains confused and found her to be climbing out of bed this morning, unsure of how to get away from tubing. Unable to obtain ROS to to patient's AMS. Objective - Vital Signs/Intake and Output Vital Signs (last 24 hours): Temp Pulse Resp BP Pulse Ox 99 F 94 H 20 100/67 94 L 02/11/19 07:00 02/11/19 07:00 02/11/19 07:00 02/11/19 07:00 02/11/19 07:00 Intake and Output: 02/11/19 02/11/19 06:59 18:59 Intake Total 800 Balance 800 - Medications Medications: Current Medications Aspirin (Ecotrin) 81 mg PO DAILY [facility] Last Admin: 02/11/19 10:07 Dose: Not Given Enoxaparin Sodium (Lovenox) 30 mg SC DAILY [facility] Last Admin: 02/11/19 10:15 Dose: 30 mg Ceftriaxone Sodium 1 gm/ (Dextrose) 100 mls @ 50 mls/30 min IVPB Q12H [facility]; Protocol Last Admin: 02/11/19 12:25 Dose: 50 mls/30 min Dextrose/Sodium Chloride (Dextrose 5%/0.9% Ns 1000 Ml) 1,000 mls @ 100 mls/hr IV .Q10H [facility] Last Admin: 02/11/19 08:41 Dose: 100 mls/hr Levetiracetam 500 mg/ Sodium (Chloride) 105 mls @ 420 mls/hr IVPB BID [facility] Last Admin: 02/11/19 10:15 Dose: 420 mls/hr - Labs Labs: 02/09/19 22:57 02/11/19 08:05 - Constitutional Appears: Confused, Cachectic, Chronically Ill - Head Exam Head Exam: ATRAUMATIC, NORMOCEPHALIC - Eye Exam Eye Exam: Normal appearance, PERRL Pupil Exam: Miosis - ENT Exam ENT Exam: Mucous Membranes Moist, Normal Exam - Neck Exam Neck Exam: Normal Inspection Additional comments: chronic neck mass on the R - Respiratory Exam Respiratory Exam: Decreased Breath Sounds, Rales, Rhonchi - Cardiovascular Exam Cardiovascular Exam: +S1, +S2, Murmur - GI/Abdominal Exam GI & Abdominal Exam: Soft, Normal Bowel Sounds - Extremities Exam Extremities Exam: Normal Inspection - Back Exam Back Exam: NORMAL INSPECTION - Neurological Exam Neurological Exam: Altered, Awake, CN II-XII Intact. absent: Oriented x3 Additional comments: generalized weakness productive and receptive aphasia staring episodes noted tracks fingers at times, other times does not follow brisk reflexes (brachial, patellar) unable to participate in pronator drift - Psychiatric Exam Psychiatric exam: Flat Affect Assessment and Plan (1) Acute encephalopathy Assessment & Plan: Imaging reviewed: MRI brain: 1. Multifocal acute infarctions in the left frontal cortex, insula, frontal subcortical white matter, parieto-occipital watershed territory, right cardoza radiata and right parietal cortex as well as right parieto-occipital watershed territory and smaller infarctions in right cerebellar hemisphere. The pattern of distribution is a combination of embolic and watershed territory infarctions. 2. Multiple chronic lacunar infarctions as described above. 3. Asymmetric curvilinear enhancement in the right parietal cortex and left frontal cortex could represent subacute infarctions. 4. No definite enhancing lesions suggestive of metastatic disease in the brain. - these infarcts appear to be embolic in origin - YISEL rescheduled for February 14 - cont ASA 81mg po daily - pending YISEL results, anticoagulation may be indicated (ie. if there is a cardiac thrombus present) - other conservative medical management per primary Status: Acute (2) Ischemic stroke Assessment & Plan: - EEG: abnormal L temporal intermittent slowing. No interictal activity seen. No seizures noted. - cont Keppra 500mg PO BID d/w Dr. Mike Orantes PGY-1 Status: Acute <Jonathon Mckeon - Last Filed: 02/13/19 21:08> Objective - Vital Signs/Intake and Output Vital Signs (last 24 hours): Temp Pulse Resp BP Pulse Ox 98.3 F 91 H 18 127/73 99 02/13/19 16:00 02/13/19 16:00 02/13/19 16:00 02/13/19 16:00 02/13/19 16:00 - Medications Medications: Current Medications Aspirin (Ecotrin) 81 mg PO DAILY [facility] Last Admin: 02/13/19 09:53 Dose: Not Given Enoxaparin Sodium (Lovenox) 30 mg SC DAILY [facility] Last Admin: 02/13/19 09:50 Dose: 30 mg Levetiracetam 500 mg/ Sodium (Chloride) 105 mls @ 420 mls/hr IVPB BID [facility] Last Admin: 02/13/19 18:10 Dose: 420 mls/hr Ceftriaxone Sodium (Rocephin Iv 1 Gm Duplex) 50 mls @ 50 mls/30 min IVPB Q12H [facility]; Protocol Last Admin: 02/13/19 12:49 Dose: 50 mls/30 min - Labs Labs: 02/13/19 08:52 02/13/19 08:52 Assessment and Plan (1) Ischemic stroke Status: Acute (2) Acute encephalopathy Status: Acute Attending/Attestation - Attestation I have personally seen and examined this patient.: Yes I have fully participated in the care of the patient.: Yes I have reviewed all pertinent clinical information, including history, physical exam and plan: Yes Notes (Text): I agree with the assessment and plan. Seizures secondary to previous stroke. Treatment as outlined above.
[2019-02-12] MEDS: Dextrose 5%/0.9% NS 1,000 ML IV SCH ×4 (02:03→20:36)
[2019-02-12 06:56] LABS: BASO # 0.1 K/uL (0.0-0.2); BASO % 0.7 % (0.0-2.0); EOS # 0.7 K/uL (0.0-0.7); EOS % 5.1 % (0.0-4.0); HEMOGLOBIN 8.4 g/dL (11.0-16.0); LYMPH # 1.6 K/uL (1.0-4.3); LYMPH % 12.3 % (20.0-40.0); MEAN CORPUSCULAR HEMOGLOBIN 25.8 pg (27.0-31.0); MEAN CORPUSCULAR HGB CONC 32.2 g/dL (33.0-37.0); MEAN PLATELET VOLUME 7.1 fL (7.2-11.7); MONO # 1.8 K/uL (0.0-0.8); MONO % 13.1 % (0.0-10.0); NEUT # 9.3 K/uL (1.8-7.0); NEUT % 68.8 % (50.0-75.0); NRBC % 0.1 % (0.0-2.0); RBC 3.25 Mil/uL (3.80-5.20); RED CELL DISTRIBUTION WIDTH 20.3 % (11.5-14.5); WHITE BLOOD COUNT 13.4 K/uL (4.8-10.8)
[2019-02-12] MEDS: levETIRAcetam 500 MG in Sodium Chloride 0.9% 100 ML IVPB SCH ×2 (09:46→17:16)
[2019-02-12] MEDS: Enoxaparin 30 mg Syringe SC SCH (09:46)
--- NOTE | 2019-02-12 13:20 | CP.PCM.PN ---
Subjective - Date & Time of Evaluation Date of Evaluation: 02/12/19 Time of Evaluation: 13:20 - Subjective Subjective: neurology and cardiology evaluation noted YISEL on Thursday Clinically remained same Continue IV fluids and neuro monitoring Discussed with the family PALLIATIVE CARE CONSULT Objective - Vital Signs/Intake and Output Vital Signs (last 24 hours): Temp Pulse Resp BP Pulse Ox 98.5 F 86 20 112/72 95 02/12/19 08:00 02/12/19 08:00 02/12/19 08:00 02/12/19 08:00 02/12/19 08:00 Intake and Output: 02/12/19 02/12/19 11:59 23:59 Intake Total 250 Balance 250 - Medications Medications: Current Medications Aspirin (Ecotrin) 81 mg PO DAILY [facility] Last Admin: 02/12/19 09:46 Dose: Not Given Enoxaparin Sodium (Lovenox) 30 mg SC DAILY [facility] Last Admin: 02/11/19 10:15 Dose: 30 mg Ceftriaxone Sodium 1 gm/ (Dextrose) 100 mls @ 50 mls/30 min IVPB Q12H [facility]; Protocol Last Admin: 02/11/19 23:49 Dose: 50 mls/30 min Dextrose/Sodium Chloride (Dextrose 5%/0.9% Ns 1000 Ml) 1,000 mls @ 100 mls/hr IV .Q10H [facility] Last Admin: 02/12/19 07:14 Dose: 100 mls/hr Levetiracetam 500 mg/ Sodium (Chloride) 105 mls @ 420 mls/hr IVPB BID [facility] Last Admin: 02/12/19 09:46 Dose: 420 mls/hr - Labs Labs: 02/12/19 06:42 02/11/19 08:05 Assessment and Plan (1) Tumor embolus Status: Acute (2) Dehydration Status: Acute (3) Lung cancer Status: Acute
[2019-02-12] MEDS: cefTRIAXone IV 1 gm in Dextros 1 GM in Dextrose 5% In Water 50 ML IVPB SCH (13:21)
[2019-02-12] MEDS: cefTRIAXone IV 1 gm in Dextros 50 ML IVPB SCH (23:54)
[2019-02-13 09:06] LABS: BASO # 0.1 K/uL (0.0-0.2); BASO % 0.8 % (0.0-2.0); EOS # 0.7 K/uL (0.0-0.7); EOS % 5.1 % (0.0-4.0); HEMOGLOBIN 7.9 g/dL (11.0-16.0); LYMPH # 1.4 K/uL (1.0-4.3); LYMPH % 10.9 % (20.0-40.0); MEAN CELL VOLUME 79.3 fL (81.0-99.0); MEAN CORPUSCULAR HEMOGLOBIN 26.1 pg (27.0-31.0); MEAN PLATELET VOLUME 7.1 fL (7.2-11.7); MONO # 1.6 K/uL (0.0-0.8); MONO % 12.4 % (0.0-10.0); NEUT # 9.2 K/uL (1.8-7.0); NEUT % 70.8 % (50.0-75.0); RBC 3.03 Mil/uL (3.80-5.20); RED CELL DISTRIBUTION WIDTH 20.6 % (11.5-14.5); WHITE BLOOD COUNT 13.1 K/uL (4.8-10.8)
[2019-02-13 09:34] LABS: ALB/GLOB RATIO 0.7 (1.0-2.1); ALBUMIN 2.2 g/dL (3.5-5.0); ALT/SGPT 15 U/L (9-52); AST/SGOT 17 U/L (14-36); BLOOD UREA NITROGEN 8 mg/dL (7-17); CALCIUM 8.1 mg/dl (8.6-10.4); GFR NON-AFRICAN AMERICAN > 60
[2019-02-13] MEDS: Enoxaparin 30 mg Syringe SC SCH (09:50)
[2019-02-13] MEDS: levETIRAcetam 500 MG in Sodium Chloride 0.9% 100 ML IVPB SCH ×2 (09:59→18:10)
--- NOTE | 2019-02-13 12:27 | CP.PCM.PN ---
Subjective - Date & Time of Evaluation Date of Evaluation: 02/13/19 Time of Evaluation: 12:26 - Subjective Subjective: NO NEW FINDINGS YISEL AM IF POSSIBLE Objective - Vital Signs/Intake and Output Vital Signs (last 24 hours): Temp Pulse Resp BP Pulse Ox 97.3 F L 82 20 132/74 98 02/13/19 08:00 02/13/19 08:00 02/13/19 08:00 02/13/19 08:00 02/13/19 08:00 - Medications Medications: Current Medications Aspirin (Ecotrin) 81 mg PO DAILY [facility] Last Admin: 02/13/19 09:53 Dose: Not Given Enoxaparin Sodium (Lovenox) 30 mg SC DAILY [facility] Last Admin: 02/13/19 09:50 Dose: 30 mg Dextrose/Sodium Chloride (Dextrose 5%/0.9% Ns 1000 Ml) 1,000 mls @ 100 mls/hr IV .Q10H [facility] Last Admin: 02/12/19 20:36 Dose: 100 mls/hr Levetiracetam 500 mg/ Sodium (Chloride) 105 mls @ 420 mls/hr IVPB BID [facility] Last Admin: 02/13/19 09:59 Dose: 420 mls/hr Ceftriaxone Sodium (Rocephin Iv 1 Gm Duplex) 50 mls @ 50 mls/30 min IVPB Q12H [facility]; Protocol Last Admin: 02/12/19 23:54 Dose: 50 mls/30 min - Labs Labs: 02/13/19 08:52 02/13/19 08:52 Assessment and Plan (1) Tumor embolus Status: Acute (2) Dehydration Status: Acute (3) Lung cancer Status: Acute
[2019-02-13] MEDS: cefTRIAXone IV 1 gm in Dextros 50 ML IVPB SCH (12:49)
[2019-02-13] MEDS: Dextrose 5%/0.9% NS 1,000 ML IV SCH (18:10)
--- NOTE | 2019-02-13 19:22 | CP.PCM.PN ---
Subjective - Date & Time of Evaluation Date of Evaluation: 02/11/19 Time of Evaluation: 13:00 - Subjective Subjective: undergoing VEEG Objective - Vital Signs/Intake and Output Vital Signs (last 24 hours): Temp Pulse Resp BP Pulse Ox 98.3 F 91 H 18 127/73 99 02/13/19 16:00 02/13/19 16:00 02/13/19 16:00 02/13/19 16:00 02/13/19 16:00 - Medications Medications: Current Medications Aspirin (Ecotrin) 81 mg PO DAILY [facility] Last Admin: 02/13/19 09:53 Dose: Not Given Enoxaparin Sodium (Lovenox) 30 mg SC DAILY [facility] Last Admin: 02/13/19 09:50 Dose: 30 mg Dextrose/Sodium Chloride (Dextrose 5%/0.9% Ns 1000 Ml) 1,000 mls @ 100 mls/hr IV .Q10H [facility] Last Admin: 02/13/19 18:10 Dose: 100 mls/hr Levetiracetam 500 mg/ Sodium (Chloride) 105 mls @ 420 mls/hr IVPB BID [facility] Last Admin: 02/13/19 18:10 Dose: 420 mls/hr Ceftriaxone Sodium (Rocephin Iv 1 Gm Duplex) 50 mls @ 50 mls/30 min IVPB Q12H [facility]; Protocol Last Admin: 02/13/19 12:49 Dose: 50 mls/30 min - Labs Labs: 02/13/19 08:52 02/13/19 08:52 - Head Exam Head Exam: ATRAUMATIC - Eye Exam Eye Exam: Normal appearance - ENT Exam ENT Exam: Mucous Membranes Dry - Respiratory Exam Respiratory Exam: NORMAL BREATHING PATTERN - Cardiovascular Exam Cardiovascular Exam: +S1, +S2 - GI/Abdominal Exam GI & Abdominal Exam: Normal Bowel Sounds Assessment and Plan (1) Mass of left cardiac ventricle Assessment & Plan: rule out thrombus vs tumor for YISEL if YISEL shows thrombus - recommend therapeutic anticoagulation Status: Acute (2) Anemia Assessment & Plan: chronic disease Status: Acute (3) Leukocytosis Assessment & Plan: on antibiotics Status: Acute (4) Lung cancer Assessment & Plan: stage IV liver and lung metastasis undergoing brain radiotherapy outpatient chemotherapy will need portacath placement once more stable Status: Acute
--- NOTE | 2019-02-13 19:24 | CP.PCM.PN ---
Subjective - Date & Time of Evaluation Date of Evaluation: 02/12/19 Time of Evaluation: 15:00 - Subjective Subjective: Undergoing VEEG, family at bedside. Objective - Vital Signs/Intake and Output Vital Signs (last 24 hours): Temp Pulse Resp BP Pulse Ox 98.3 F 91 H 18 127/73 99 02/13/19 16:00 02/13/19 16:00 02/13/19 16:00 02/13/19 16:00 02/13/19 16:00 - Medications Medications: Current Medications Aspirin (Ecotrin) 81 mg PO DAILY [facility] Last Admin: 02/13/19 09:53 Dose: Not Given Enoxaparin Sodium (Lovenox) 30 mg SC DAILY [facility] Last Admin: 02/13/19 09:50 Dose: 30 mg Dextrose/Sodium Chloride (Dextrose 5%/0.9% Ns 1000 Ml) 1,000 mls @ 100 mls/hr IV .Q10H [facility] Last Admin: 02/13/19 18:10 Dose: 100 mls/hr Levetiracetam 500 mg/ Sodium (Chloride) 105 mls @ 420 mls/hr IVPB BID [facility] Last Admin: 02/13/19 18:10 Dose: 420 mls/hr Ceftriaxone Sodium (Rocephin Iv 1 Gm Duplex) 50 mls @ 50 mls/30 min IVPB Q12H [facility]; Protocol Last Admin: 02/13/19 12:49 Dose: 50 mls/30 min - Labs Labs: 02/13/19 08:52 02/13/19 08:52 - Head Exam Head Exam: ATRAUMATIC - Eye Exam Eye Exam: Normal appearance - ENT Exam ENT Exam: Mucous Membranes Dry - Respiratory Exam Respiratory Exam: NORMAL BREATHING PATTERN - Cardiovascular Exam Cardiovascular Exam: +S1, +S2 - GI/Abdominal Exam GI & Abdominal Exam: Normal Bowel Sounds Assessment and Plan (1) Mass of left cardiac ventricle Assessment & Plan: rule out thrombus vs tumor for YISEL if YISEL shows thrombus - recommend therapeutic anticoagulation Status: Acute (2) Anemia Assessment & Plan: chronic disease Status: Acute (3) Leukocytosis Assessment & Plan: on antibiotics Status: Acute (4) Lung cancer Assessment & Plan: stage IV liver and lung metastasis undergoing brain radiotherapy outpatient chemotherapy will need portacath placement once more stable Status: Acute
--- NOTE | 2019-02-13 19:25 | CP.PCM.PN ---
Subjective - Date & Time of Evaluation Date of Evaluation: 02/13/19 Time of Evaluation: 14:00 - Subjective Subjective: No complaints. Objective - Vital Signs/Intake and Output Vital Signs (last 24 hours): Temp Pulse Resp BP Pulse Ox 98.3 F 91 H 18 127/73 99 02/13/19 16:00 02/13/19 16:00 02/13/19 16:00 02/13/19 16:00 02/13/19 16:00 - Medications Medications: Current Medications Aspirin (Ecotrin) 81 mg PO DAILY [facility] Last Admin: 02/13/19 09:53 Dose: Not Given Enoxaparin Sodium (Lovenox) 30 mg SC DAILY [facility] Last Admin: 02/13/19 09:50 Dose: 30 mg Dextrose/Sodium Chloride (Dextrose 5%/0.9% Ns 1000 Ml) 1,000 mls @ 100 mls/hr IV .Q10H [facility] Last Admin: 02/13/19 18:10 Dose: 100 mls/hr Levetiracetam 500 mg/ Sodium (Chloride) 105 mls @ 420 mls/hr IVPB BID [facility] Last Admin: 02/13/19 18:10 Dose: 420 mls/hr Ceftriaxone Sodium (Rocephin Iv 1 Gm Duplex) 50 mls @ 50 mls/30 min IVPB Q12H [facility]; Protocol Last Admin: 02/13/19 12:49 Dose: 50 mls/30 min - Labs Labs: 02/13/19 08:52 02/13/19 08:52 - Head Exam Head Exam: ATRAUMATIC - Eye Exam Eye Exam: Normal appearance - ENT Exam ENT Exam: Mucous Membranes Dry - Respiratory Exam Respiratory Exam: NORMAL BREATHING PATTERN - Cardiovascular Exam Cardiovascular Exam: +S1, +S2 - GI/Abdominal Exam GI & Abdominal Exam: Normal Bowel Sounds Assessment and Plan (1) Mass of left cardiac ventricle Assessment & Plan: rule out thrombus vs tumor for YISEL if YISEL shows thrombus - recommend therapeutic anticoagulation Status: Acute (2) Anemia Assessment & Plan: chronic disease Status: Acute (3) Leukocytosis Assessment & Plan: on antbiotics Status: Acute (4) Lung cancer Assessment & Plan: stage IV liver and lung metastasis undergoing brain radiotherapy outpatient chemotherapy will need portacath placement once more stable Status: Acute
--- NOTE | 2019-02-13 21:32 | CARD ---
APPROVED REPORT Date of service: 02/09/2019 EKG Measurement Heart [id number] <Conclusion> Sinus tachycardia Otherwise normal ECG
[2019-02-14] MEDS: cefTRIAXone IV 1 gm in Dextros 50 ML IVPB SCH ×3 (00:08→23:47)
[2019-02-14 07:54] LABS: INR 1.4; PROTHROMBIN TIME 15.7 SECONDS (9.7-12.2)
[2019-02-14 08:01] LABS: HEMOGLOBIN 8.3 g/dL (11.0-16.0); MEAN CELL VOLUME 80.2 fL (81.0-99.0); MEAN CORPUSCULAR HEMOGLOBIN 25.6 pg (27.0-31.0); MEAN PLATELET VOLUME 7.3 fL (7.2-11.7); RBC 3.26 Mil/uL (3.80-5.20); RED CELL DISTRIBUTION WIDTH 20.5 % (11.5-14.5); WHITE BLOOD COUNT 12.3 K/uL (4.8-10.8)
[2019-02-14 08:04] LABS: BLOOD UREA NITROGEN 8 mg/dL (7-17); CALCIUM 8.1 mg/dl (8.6-10.4); GFR NON-AFRICAN AMERICAN > 60
[2019-02-14] MEDS: Enoxaparin 30 mg Syringe SC SCH (10:00)
[2019-02-14] MEDS ORDERED: Lidocaine 4% (Laryng-O-Jet) Kit MM ONE (10:10)
--- NOTE | 2019-02-14 11:36 | CP.PCM.PN ---
Subjective - Date & Time of Evaluation Date of Evaluation: 02/14/19 Time of Evaluation: 11:36 - Subjective Subjective: APHASIC MOVES EXT YISEL AWAITING LABS [place] Objective - Vital Signs/Intake and Output Vital Signs (last 24 hours): Temp Pulse Resp BP Pulse Ox 97.8 F 80 20 126/74 98 02/14/19 08:00 02/14/19 08:00 02/14/19 08:00 02/14/19 08:00 02/14/19 08:00 Intake and Output: 02/13/19 02/14/19 23:59 11:59 Intake Total 800 800 Balance 800 800 - Medications Medications: Current Medications Aspirin (Ecotrin) 81 mg PO DAILY [facility] Last Admin: 02/13/19 09:53 Dose: Not Given Enoxaparin Sodium (Lovenox) 30 mg SC DAILY [facility] Last Admin: 02/13/19 09:50 Dose: 30 mg Levetiracetam 500 mg/ Sodium (Chloride) 105 mls @ 420 mls/hr IVPB BID [facility] Last Admin: 02/13/19 18:10 Dose: 420 mls/hr Ceftriaxone Sodium (Rocephin Iv 1 Gm Duplex) 50 mls @ 50 mls/30 min IVPB Q12H [facility]; Protocol Last Admin: 02/14/19 00:08 Dose: 50 mls/30 min - Labs Labs: 02/14/19 07:40 02/14/19 07:40 PT 15.7 SECONDS (9.7-12.2) H 02/14/19 07:40 INR 1.4 02/14/19 07:40 Assessment and Plan (1) Tumor embolus Status: Acute (2) Dehydration Status: Acute (3) Lung cancer Status: Acute
[2019-02-14] MEDS: levETIRAcetam 500 MG in Sodium Chloride 0.9% 100 ML IVPB SCH ×2 (13:25→18:04)
--- NOTE | 2019-02-14 15:10 | PCM.STROKE ---
Interval History Stroke Date: 02/09/19 No other interval changes in current, PMHx, FHx, SocHx, ROS: other than on note by: (initial neuro H&P) - Treatment DVT Prophylaxis: Lovenox Antiplatelet: Acetylsalicylic acid (ASA) Statin: Rosuvastatin - Education Written Stroke Education provided regarding: personal risk factors, stroke warning sign/symptoms, how to activate emergency medical services, need to follow up after discharge Hx Atrial Fibrillation: No Hx Atrial Flutter: No - Therapy Notes Physical therapy notes date reviewed: 02/14/19 Occupational therapy notes date reviewed: 02/14/19 I have reviewed care of the patient with: Dr. Mckeon NIHSS Stroke Scale - Date/Time Evaluation Performed Date Performed: 02/14/19 Time Performed: 15:10 When Was NIHSS Performed: Re-evaluation - How Severe is the Stroke Level of Consciousness: 0=Alert LOC to Questions: 0=Both comments correct LOC to commands: 0=Obeys both correctly Best Gaze: 0=Normal Visual: 0=No visual loss Facial: 0=Normal Motor Arm - Left: 1=Drift noted before 10 sec Motor Arm - Right: 0=No drift Motor Leg - Left: 0=No drift Motor Leg - Right: 0=No drift Limb Ataxia: 0=Absent Sensory: 0=Normal Best Language: 0=No aphasia Dysarthia: 0=Normal articulation Extinction & Inattention (Neglect): 0=Normal, no object Score: 1 Exam - Vital Sign Vital Signs: Temp Pulse Resp BP Pulse Ox 97.8 F 80 20 126/74 98 02/14/19 08:00 02/14/19 08:00 02/14/19 08:00 02/14/19 08:00 02/14/19 08:00 Constitutional: No distress, Normal appearing Ophthalmoscopic: absent: papilledema, hemorrhage Right Pupil: Reactive Right Pupil Size (in mm): 3 Left Pupil: Reactive Left Pupil Size (in mm): 3 Cardiovascular: Regular rate & rhythm Mental Status: Normal: Orientation, Memory, Attention, Language, Fund of Knowledge Cranial Nerve: Normal: Visual Elliott, Extraocular movement intact, Facial Sensation, Facial Strength, Hearing, Palate/Tongue Movement, Shoulder Strength Motor: Tone Neuro motor strength exam: Left Upper Extremity: 3 (draw press operator 3/5), Right Upper Extremity: 5 (draw press operator 5/5), Left Lower Extremity: 5, Right Lower Extremity: 5 Sensation: Intact to pin, Vibration, Propriception throughout DTR: Patellar Left: 2+, Patellar Right: 2+ Flexor Plantar Reflex: Normal Coordination: absent: Finger/nose (dysmetria to left) Vascular Risk: Hypertension - Data reviewed Laboratory results: 02/14/19 07:40 02/14/19 07:40 Assessment and Plan (1) CVA (cerebral vascular accident) Assessment & Plan: Imaging reviewed: -Brain MRI (02/10/19): 1. Multifocal acute infarctions in the left frontal cortex, insula, frontal subcortical white matter, parieto-occipital watershed territory, right cardzoa radiata and right parietal cortex as well as right parieto-occipital watershed territory and smaller infarctions in right cerebellar hemisphere. The pattern of distribution is a combination of embolic and watershed territory infarctions. 2. Multiple chronic lacunar infarctions as described above. 3. Asymmetric curvilinear enhancement in the right parietal cortex and left frontal cortex could represent subacute infarctions. 4. No definite enhancing lesions suggestive of metastatic disease in the brain. -EEG (02/10/19): This is an abnormal video-EEG monitoring study due to the presence of 1-Left temporal intermittent slowing. No interictal activity seen. No seizures. -Pt was pending YISEL. I discussed with Dr. Mock reason for cancellation. Per him the "pt is too sick" to have this study done. Will request ECHO w/ Bubble study to be done instead to r/o ASD or other cardiac reason for pt's embolic CVA. -Continue ASA. AC to be discussed after ECHO w. Bubble completed. -Start Statin. -Added lipid panel and HgbA1c to labs. -Continue PT/OT -Continue Keppra as ordered -Notify neuro of any acute changes in pt's condition. Liyah Dean, ARNAUD, TONG SETTER D/W Dr. Mckeon Status: Acute
[2019-02-14 17:07] LABS: HDL CHOLESTEROL 18 mg/dL (30-70)
[2019-02-14 17:18] LABS: LDL CHOLESTEROL 96 mg/dL (0-129)
--- NOTE | 2019-02-14 22:05 | CP.PCM.PN ---
Subjective - Date & Time of Evaluation Date of Evaluation: 02/14/19 Time of Evaluation: 20:00 - Subjective Subjective: More verbal Objective - Vital Signs/Intake and Output Vital Signs (last 24 hours): Temp Pulse Resp BP Pulse Ox 98.2 F 83 20 133/87 98 02/14/19 15:50 02/14/19 15:50 02/14/19 15:50 02/14/19 15:50 02/14/19 15:50 - Medications Medications: Current Medications Aspirin (Ecotrin) 81 mg PO DAILY [facility] Last Admin: 02/14/19 10:00 Dose: Not Given Enoxaparin Sodium (Lovenox) 30 mg SC DAILY [facility] Last Admin: 02/14/19 10:00 Dose: Not Given Levetiracetam 500 mg/ Sodium (Chloride) 105 mls @ 420 mls/hr IVPB BID [facility] Last Admin: 02/14/19 18:04 Dose: 420 mls/hr Ceftriaxone Sodium (Rocephin Iv 1 Gm Duplex) 50 mls @ 50 mls/30 min IVPB Q12H [facility]; Protocol Last Admin: 02/14/19 14:32 Dose: 50 mls/30 min - Labs Labs: 02/14/19 07:40 02/14/19 07:40 PT 15.7 SECONDS (9.7-12.2) H 02/14/19 07:40 INR 1.4 02/14/19 07:40 - Head Exam Head Exam: ATRAUMATIC - Eye Exam Eye Exam: Normal appearance - ENT Exam ENT Exam: Mucous Membranes Dry - Respiratory Exam Respiratory Exam: NORMAL BREATHING PATTERN - Cardiovascular Exam Cardiovascular Exam: +S1, +S2 - GI/Abdominal Exam GI & Abdominal Exam: Normal Bowel Sounds Assessment and Plan (1) Mass of left cardiac ventricle Assessment & Plan: rule out thrombus vs tumor for YISEL if YISEL shows thrombus - recommend therapeutic anticoagulation Status: Acute (2) Anemia Assessment & Plan: chronic disease Status: Acute (3) Leukocytosis Assessment & Plan: on antbiotics Status: Acute (4) Lung cancer Assessment & Plan: stage IV liver and lung metastasis s/p brain radiotherapy outpatient chemotherapy will need portacath placement once more stable Status: Acute
--- NOTE | 2019-02-14 22:14 | PN ---
DATE: 02/14/2019 I was called to perform a transthoracic echocardiographic study on Ms. Catalan. In the laboratory mechanical technician waiting area, the patient was lethargic and confused and appeared to be very frail. I did review the patient's imaging findings as well as labs, and the patient has what appears from the chest x-ray finding and chest CT scan inoperable lung CA with attachment to the mediastinum and right atrium. I did discuss the exceptionally high risk of the procedure with the patient's daughter, and we agreed to cancel the procedure today to have at least a transthoracic echocardiographic study performed initially and not subject the patient to the risk of sedation. The fact that the patient has stage IV CA with liver or lung metastasis with possible brain metastasis undergoing brain radiotherapy even with the outcome of finding a cardiac thrombus, the patient is still not a candidate for anticoagulation given brain metastasis. The case was discussed with Dr. Mock and with the medical driver. Yefri Stubbs MD
[2019-02-15] MEDS: levETIRAcetam 500 MG in Sodium Chloride 0.9% 100 ML IVPB SCH ×2 (11:07→18:11)
[2019-02-15] MEDS: Enoxaparin 30 mg Syringe SC SCH (11:07)
--- NOTE | 2019-02-15 12:04 | CP.PCM.PN ---
Subjective - Date & Time of Evaluation Date of Evaluation: 02/15/19 Time of Evaluation: 12:01 - Subjective Subjective: PT. IS MORE AWARE OF SURROUNDINGS HAD DETAIL D/W FAMILY MEMBERS ON PROS AND CONS OF ANTICOAGULATION YISEL CAN NOT BE DONE DUE TO PHYSICAL CONDITION 2D ECHO SHOWS LARGE MASS IN LA MOST PROBABLY CLOT WILL CONFER WITH NEURO AND HEMATOLOGY BEFORE WE START OAC Objective - Vital Signs/Intake and Output Vital Signs (last 24 hours): Temp Pulse Resp BP Pulse Ox 98.0 F 80 20 127/74 95 02/15/19 07:00 02/15/19 07:00 02/15/19 07:00 02/15/19 07:00 02/15/19 07:00 - Medications Medications: Current Medications Aspirin (Ecotrin) 81 mg PO DAILY [facility] Last Admin: 02/15/19 11:07 Dose: 81 mg Enoxaparin Sodium (Lovenox) 30 mg SC DAILY [facility] Last Admin: 02/15/19 11:07 Dose: 30 mg Levetiracetam 500 mg/ Sodium (Chloride) 105 mls @ 420 mls/hr IVPB BID [facility] Last Admin: 02/15/19 11:07 Dose: 420 mls/hr Ceftriaxone Sodium (Rocephin Iv 1 Gm Duplex) 50 mls @ 50 mls/30 min IVPB Q12H [facility]; Protocol Last Admin: 02/14/19 23:47 Dose: 50 mls/30 min Rosuvastatin Calcium (Crestor) 10 mg PO HS [facility] Last Admin: 02/14/19 23:47 Dose: 10 mg - Labs Labs: 02/14/19 07:40 02/14/19 07:40 PT 15.7 SECONDS (9.7-12.2) H 02/14/19 07:40 INR 1.4 02/14/19 07:40 Assessment and Plan (1) Tumor embolus Status: Acute (2) Dehydration Status: Acute (3) Lung cancer Status: Acute
[2019-02-15] MEDS: cefTRIAXone IV 1 gm in Dextros 50 ML IVPB SCH (13:00)
[2019-02-15 13:58] LABS: BASO # 0.1 K/uL (0.0-0.2); EOS # 0.5 K/uL (0.0-0.7); EOS % 3.9 % (0.0-4.0); HEMOGLOBIN 8.2 g/dL (11.0-16.0); LYMPH # 1.5 K/uL (1.0-4.3); LYMPH % 10.9 % (20.0-40.0); MEAN CELL VOLUME 79.4 fL (81.0-99.0); MEAN CORPUSCULAR HEMOGLOBIN 25.8 pg (27.0-31.0); MEAN CORPUSCULAR HGB CONC 32.6 g/dL (33.0-37.0); MEAN PLATELET VOLUME 7.3 fL (7.2-11.7); MONO # 1.5 K/uL (0.0-0.8); MONO % 10.8 % (0.0-10.0); NEUT # 10.2 K/uL (1.8-7.0); NEUT % 73.4 % (50.0-75.0); RBC 3.19 Mil/uL (3.80-5.20); RED CELL DISTRIBUTION WIDTH 20.2 % (11.5-14.5); WHITE BLOOD COUNT 13.9 K/uL (4.8-10.8)
--- NOTE | 2019-02-15 14:09 | CP.PCM.CON ---
History of Present Illness - History of Present Illness History of Present Illness: Palliative consult requested by Shadia VP OF [employer]ATE[employer] for goals of care discussion. Patient is a 58 yo AA lady admitted from home with worsening weakness, refusing food and drinks and becoming incontinent. Patient also stopped talking and fallo wing directions. 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 Patient had 7 out of 10 radiations and sustained CVA. The EEG showed cortical abnormalities. Doctor Medardo is fallowing the patient and outpatient chemo Tx is suggested once patient gets stronger. Family is undecided on goals of care. PMH: pancreatitis, newly diagnosed lung cancer with mets Soc. Hx: lives at home, has 6 children all involved in care Fam. Hx: nonsignificant Review of Systems - Review of Systems Systems not reviewed;Unavailable: Altered Mental Status All systems: reviewed and no additional remarkable complaints except Review of Systems: ROS unobtainable from patient due to lethargy. ROS obtained from nursing. per nursing patient has been refusing food. Past Patient History - Infectious Disease Hx of Infectious Diseases: None - Past Medical History & Family History Past Medical History?: Yes - Past Social History Smoking Status: Former Smoker - CARDIAC Hx Atrial Fibrillation: No - PULMONARY Hx Respiratory Disorders: No Hx Lung Cancer: Yes (january 20, 2019) Other/Comment: radiation started 2018 for tumor in the head - NEUROLOGICAL Hx Neurological Disorder: No - HEENT Hx HEENT Problems: No - RENAL Hx Renal Failure: Yes - ENDOCRINE/METABOLIC Hx Diabetes Mellitus Type 2: Yes - HEMATOLOGICAL/ONCOLOGICAL Hx Blood Disorders: No - INTEGUMENTARY Hx Dermatological Problems: No - MUSCULOSKELETAL/RHEUMATOLOGICAL Hx Falls: No - GASTROINTESTINAL Hx Pancreatitis: Yes - GENITOURINARY/GYNECOLOGICAL Hx Genitourinary Disorders: No - PSYCHIATRIC Hx Substance Use: No - SURGICAL HISTORY Hx Surgeries: No Other/Comment: Kidney Stents - ANESTHESIA Hx Anesthesia: Yes Hx Anesthesia Reactions: No Hx Malignant Hyperthermia: No Meds Allergies/Adverse Reactions: Allergies Allergy/AdvReac Type Severity Reaction Status Date / Time No Known Allergies Allergy Verified 01/20/19 18:21 - Medications Medications: Current Medications Aspirin (Ecotrin) 81 mg PO DAILY [facility] Last Admin: 02/15/19 11:07 Dose: 81 mg Enoxaparin Sodium (Lovenox) 30 mg SC DAILY [facility] Last Admin: 02/15/19 11:07 Dose: 30 mg Levetiracetam 500 mg/ Sodium (Chloride) 105 mls @ 420 mls/hr IVPB BID [facility] Last Admin: 02/15/19 11:07 Dose: 420 mls/hr Ceftriaxone Sodium (Rocephin Iv 1 Gm Duplex) 50 mls @ 50 mls/30 min IVPB Q12H [facility]; Protocol Last Admin: 02/14/19 23:47 Dose: 50 mls/30 min Rosuvastatin Calcium (Crestor) 10 mg PO HS [facility] Last Admin: 02/14/19 23:47 Dose: 10 mg Physical Exam - Constitutional Appears: Chronically Ill - Head Exam Head Exam: ATRAUMATIC, NORMAL INSPECTION, NORMOCEPHALIC - Eye Exam Eye Exam: EOMI, Normal appearance, PERRL Pupil Exam: NORMAL ACCOMODATION, PERRL - ENT Exam ENT Exam: Mucous Membranes Moist, Normal Exam - Neck Exam Neck exam: Positive for: Normal Inspection - Respiratory Exam Respiratory Exam: Decreased Breath Sounds, Rhonchi Additional comments: moist cough - Cardiovascular Exam Cardiovascular Exam: Tachycardia, Irregular Rhythm - GI/Abdominal Exam GI & Abdominal Exam: Normal Bowel Sounds, Soft - Rectal Exam Rectal Exam: Deferred - Extremities Exam Extremities exam: Positive for: pedal edema, pedal pulses present - Back Exam Back exam: NORMAL INSPECTION - Neurological Exam Neurological exam: Alert, Altered - Psychiatric Exam Psychiatric exam: Flat Affect - Skin Skin Exam: Dry, Intact, Mottled, Pallor Results - Vital Signs Recent Vital Signs: Last Vital Signs Temp 98.0 F 02/15/19 07:00 Pulse 80 02/15/19 07:00 Resp 20 02/15/19 07:00 BP 127/74 02/15/19 07:00 Pulse Ox 95 02/15/19 07:00 - Labs Result Diagrams: 02/14/19 07:40 02/14/19 07:40 Labs: Laboratory Results - last 24 hr 02/14/19 02/14/19 16:47 16:47 Hemoglobin A1c 5.5 Triglycerides 121 Cholesterol 125 LDL Cholesterol Direct 96 HDL Cholesterol 18 L Assessment & Plan - Assessment and Plan (Free Text) Assessment: Palliative consult Full Code, there is no Advance directive on chart, PPS 10% I reviewed all Medical records, diagnostic studies, examined patient in the bed and discussed goals of care with family Patient is alert, non verbal, makes eyes contact, does not fallow directions . per family at bet side, patient is more alert today. Skin pale, Hb 8.3, no wounds, pitting edema to LEs. Diminished breath sounds, moist cough, a lot of ronchi on auscultation, o2sat 95 % RA. HR 80, irregular rhythm, ECHO was significant for large thromb but ET was pos tponed yesterday due to high risks of intervention. Abdomen flat, soft, active bowel sounds, patient refuses food. IVF for hydration only. Incontinent of bowel and bladder. There is active ROM to upper and LEs. Pitting pedal edema, pedal pulses present, patient is bed ridden. BP 127/74, HR 80, afebrile WBC 12.3, Hb 8.3 Rocephin IV on board, empirically. Family meeting attended today by patient's daughter Jeni, mignon Morgan and sister. Family states understanding of diagnosis and a shock due to sudden onset of it. Family admits that patient has been hospitalized numerous times in the near past for different reasons and on the last admission patient was treated for dehydration. Family is debating between the further treatments vs comfort care. Their concern is prolonged suffering for this patient. Family is ready to make decision based on input from Doctor Batres. If further treatment is uncertain or would make patient more weak, family is ready to advocate for comfort care only.Family is very oriental orthodox and is heavily relying on God, which in a sense makes it easier for them to decide. Family understands that patient's condition is not curable and her life expectancy was very limited. Family is also concerned with patient refusing food. They feel if patient could be fed somehow, she may become more alert. NGT feedings discussed. Family agreed with it for limited time only; a few days. The youngest son Eddie, is especially stressed out by his mother's condition and cries often. I suggested pastoral care what family accepted. Option of NGT discussed with Russ MORAN and to be related to Doctor Theodore. I reached out to Doctor Batres as family wanted to hear his opinion. Family wanted one more family meeting where all 6 children will be present. We agreed to meet tomorrow at 11 am again. Impression * Metastatic lung disease * Moist cough * Generalized weakness * Prognosis is grave * Family admits to spiritual distress * Patient is at risk for malnutrition as she is refusing food * Family is debating between further treatment vs comfort care only; decision will depend on Doctor Walhonding opinion * In general, family advocates for increased comfort over aggressive interventi ons Suggestion * Bed rest to preserve energy * Neb Tx * Pastoral care for Spiritual support * Consider NGT feeding for up to 48 - 72 hr until family decides on next step in care Family meeting tomorrow at 11 am with all 6 children present for final decision on comfort care. Advance care planing 60 min.
[2019-02-15 14:16] LABS: ALB/GLOB RATIO 0.7 (1.0-2.1); ALBUMIN 2.1 g/dL (3.5-5.0); ALT/SGPT 19 U/L (9-52); AST/SGOT 15 U/L (14-36); BLOOD UREA NITROGEN 8 mg/dL (7-17); CALCIUM 7.9 mg/dl (8.6-10.4); GFR NON-AFRICAN AMERICAN > 60
--- NOTE | 2019-02-15 16:28 | PCM.STROKE ---
Interval History Stroke Date: 02/09/19 - Treatment DVT Prophylaxis: Sequential compression device in place bilaterally Antiplatelet: Acetylsalicylic acid (ASA) Statin: Rosuvastatin - Education Written Stroke Education provided regarding: personal risk factors, stroke warning sign/symptoms, how to activate emergency medical services, need to follow up after discharge Hx Atrial Fibrillation: No Hx Atrial Flutter: No - Therapy Notes Physical therapy notes date reviewed: 02/15/19 (no notes since 02/11/19) Occupational therapy notes date reviewed: 02/15/19 I have reviewed care of the patient with: Dr. Mckeon NIHSS Stroke Scale - Date/Time Evaluation Performed Date Performed: 02/15/19 Time Performed: 16:26 When Was NIHSS Performed: Re-evaluation - How Severe is the Stroke Level of Consciousness: 1=Drowsy LOC to Questions: 0=Both comments correct LOC to commands: 0=Obeys both correctly Best Gaze: 0=Normal Visual: 0=No visual loss Facial: 0=Normal Motor Arm - Left: 1=Drift noted before 10 sec Motor Arm - Right: 0=No drift Motor Leg - Left: 0=No drift Motor Leg - Right: 0=No drift Limb Ataxia: 0=Absent Sensory: 0=Normal Best Language: 0=No aphasia Dysarthia: 0=Normal articulation Extinction & Inattention (Neglect): 0=Normal, no object Score: 2 Exam - Vital Sign Vital Signs: Temp Pulse Resp BP Pulse Ox 98.1 F 85 18 138/75 96 02/15/19 16:00 02/15/19 16:00 02/15/19 16:00 02/15/19 16:00 02/15/19 16:00 Constitutional: No distress, Normal appearing Ophthalmoscopic: absent: papilledema, hemorrhage Mental Status: Normal: Other (pt refused exam) - Data reviewed Laboratory results: 02/15/19 13:55 02/15/19 13:55 Triglycerides 121 mg/dL (0-149) 02/14/19 16:47 Cholesterol 125 mg/dL (0-199) 02/14/19 16:47 LDL Cholesterol Direct 96 mg/dL (0-129) 02/14/19 16:47 HDL Cholesterol 18 mg/dL (30-70) L 02/14/19 16:47 Hemoglobin A1c 5.5 % (4.2-6.5) 02/14/19 16:47 Assessment and Plan (1) CVA (cerebral vascular accident) Assessment & Plan: Imaging reviewed: -Brain MRI (02/10/19): 1. Multifocal acute infarctions in the left frontal cortex, insula, frontal subcortical white matter, parieto-occipital watershed territory, right cardoza radiata and right parietal cortex as well as right parieto-occipital watershed territory and smaller infarctions in right cereb ellar hemisphere. The pattern of distribution is a combination of embolic and watershed territory infarctions. 2. Multiple chronic lacunar infarctions as described above. 3. Asymmetric curvilinear enhancement in the right parietal cortex and left frontal cortex could represent subacute infarctions. 4. No definite enhancing lesions suggestive of metastatic disease in the brain. -EEG (02/10/19): This is an abnormal video-EEG monitoring study due to the presence of 1-Left temporal intermittent slowing. No interictal activity seen. No seizures. Please note, pt refused neuro exam today, therefore, NIHSS is inaccurate. She was asleep when I went to see her, and drowsy earlier today per primary ELECTRONIC INDUCTION HARDENER, though she was easily arousable to light touch and voice. She appears to be withdrawn emotionally and depressed compared to yesterday. Has decreased appetite, though family brought food from home that she is willing to eat. Offered no complaints, concerns or questions when I was at bedside. Otherwise, palliative care evaluated pt today; pt is for hospice evaluation tomorrow and a family meeting with Barbara FLANAGAN to discuss goals of care. Further neuro plan will depend on the outcome of the meeting tomorrow. If the plan is for hospice and comfort care, we will sign off at that time. For now, see below for recommendations in care: -ECHO w/ Bubble done today to r/o ASD---f/u with results. -Discussed with cardio; AC not recommended in this pt regardless of echo w bubble results. May continue ASA 81 mg PO daily. Continue statin. -Continue PT/OT -Continue Keppra as ordered -Will f/u with pt and family after meeting with hospice and pall care. -Notify neuro of any acute changes in pt's condition. Liyah Dean, DNP, ELECTRONIC INDUCTION HARDENER D/W Dr. Mckeon Status: Acute
--- NOTE | 2019-02-15 20:08 | CARD ---
APPROVED REPORT Date of service: 02/15/2019 EXAM: Two-dimensional and M-mode echocardiogram with Doppler and color Doppler. Other Information Quality : GoodRhythm : INDICATION CVA/TIA 2D DIMENSIONS IVSd1.0 (0.7-1.1cm)LVDd3.9 (3.9-5.9cm) PWd1.1 (0.7-1.1cm)LVDs2.6 (2.5-4.0cm) FS (%) 33.1 %LVEF (%)62.3 (>50%) LVEF (Rodriguez's)59.52 % M-Mode DIMENSIONS Left Atrium (MM)3.90 (2.5-4.0cm)IVSd0.99 (0.7-1.1cm) Aortic Root3.01 (2.2-3.7cm)LVDd4.52 (4.0-5.6cm) Aortic Cusp Exc.2.16 (1.5-2.0cm)PWd0.71 (0.7-1.1cm) FS (%) 32 %LVDs3.08 (2.0-3.8cm) LVEF (%)60 (>50%) Aortic Valve AI P 1/2 Bbpw102ft Mitral Valve MV E Erttodiq32.6cm/sMV A Lawketzf92.7cm/sE/A ratio1.1 TDI Lateral E' Peak V10.87cm/sMedial E' Peak V5.77cm/sE/Lateral E'7.7 E/Medial E'14.5 Tricuspid Valve TR Peak Ykwzfbrz886jz/sTR Peak Gr.63kiIdBBDS62ryJs LEFT VENTRICLE The left ventricle is normal size. There is normal left ventricular wall thickness. The left ventricular function is normal. The left ventricular ejection fraction is within the normal range. No regional wall motion abnormalities noted. The left ventricular diastolic function is indeterminate No left ventricle thrombus noted on this study. There is no ventricular septal defect visualized. There is no left ventricular aneurysm. There is no mass noted in the left ventricle. RIGHT VENTRICLE The right ventricle is normal size. There is normal right ventricular wall thickness. The right ventricular systolic function is normal. ATRIA The left atrium size is normal. The right atrium size is normal. The interatrial septum is intact with no evidence for an atrial septal defect. AORTIC VALVE The aortic valve is normal in structure and function. Mild aortic regurgitation is present. There is no aortic valvular stenosis. There is no aortic valvular vegetation. MITRAL VALVE The mitral valve is normal in structure and function. There is no evidence of mitral valve prolapse. There is no mitral valve stenosis. There is no mitral valve regurgitation noted. TRICUSPID VALVE The tricuspid valve is normal in structure and function. There is mild tricuspid valve regurgitation noted. There is no tricuspid valve prolapse or vegetation. There is no tricuspid valve stenosis. PULMONIC VALVE The pulmonary valve is normal in structure and function. There is no pulmonic valvular regurgitation. There is no pulmonic valvular stenosis. GREAT VESSELS The aortic root is normal in size. The ascending aorta is normal in size. The pulmonary artery is normal. The IVC is normal in size and collapses >50% with inspiration. PERICARDIAL EFFUSION The pericardium appears normal. There is no pleural effusion. <Conclusion> The left ventricular function is normal. mild aortic regurgitation. A large mass is noted in the posterior left atrium, taking up more than 50% of the area. Tumour vs thrombus. As pt is in nsr, tumour more likely, consider CT to check [place] units.
[2019-02-16] MEDS: cefTRIAXone IV 1 gm in Dextros 50 ML IVPB SCH ×3 (00:44→23:48)
--- NOTE | 2019-02-16 01:33 | CP.PCM.PN ---
Subjective - Date & Time of Evaluation Date of Evaluation: 02/15/19 Time of Evaluation: 18:00 - Subjective Subjective: No complaints, family at bedside. High risk for YISEL; not to be done - likely cardiac thrombus okay to anticoagulate from heme/onc standpoint Discussed at length hospice with the patient and her family; they would like to think about it. Will readdress tomorrow. Objective - Vital Signs/Intake and Output Vital Signs (last 24 hours): Temp Pulse Resp BP Pulse Ox 99.2 F 78 20 135/84 95 02/15/19 23:22 02/15/19 23:22 02/15/19 23:22 02/15/19 23:22 02/15/19 23:22 Intake and Output: 02/15/19 02/16/19 18:59 06:59 Intake Total 250 Output Total 300 Balance -50 - Medications Medications: Current Medications Aspirin (Ecotrin) 81 mg PO DAILY [facility] Last Admin: 02/15/19 11:07 Dose: 81 mg Enoxaparin Sodium (Lovenox) 30 mg SC DAILY [facility] Last Admin: 02/15/19 11:07 Dose: 30 mg Levetiracetam 500 mg/ Sodium (Chloride) 105 mls @ 420 mls/hr IVPB BID [facility] Last Admin: 02/15/19 18:11 Dose: 420 mls/hr Ceftriaxone Sodium (Rocephin Iv 1 Gm Duplex) 50 mls @ 50 mls/30 min IVPB Q12H [facility]; Protocol Last Admin: 02/16/19 00:44 Dose: 50 mls/30 min Ondansetron HCl (Zofran Inj) 2 mg IVP Q6H PRN PRN Reason: Nausea/Vomiting Last Admin: 02/15/19 18:11 Dose: 2 mg Rosuvastatin Calcium (Crestor) 10 mg PO HS [facility] Last Admin: 02/15/19 21:56 Dose: Not Given - Labs Labs: 02/15/19 13:55 02/15/19 13:55 PT 15.7 SECONDS (9.7-12.2) H 02/14/19 07:40 INR 1.4 02/14/19 07:40 - Constitutional Appears: Cachectic - Head Exam Head Exam: ATRAUMATIC - Eye Exam Eye Exam: Normal appearance - ENT Exam ENT Exam: Mucous Membranes Dry - Respiratory Exam Respiratory Exam: Decreased Breath Sounds - Cardiovascular Exam Cardiovascular Exam: +S1, +S2 - GI/Abdominal Exam GI & Abdominal Exam: Normal Bowel Sounds Assessment and Plan (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
[2019-02-16] MEDS: levETIRAcetam 500 MG in Sodium Chloride 0.9% 100 ML IVPB SCH ×2 (10:42→18:02)
[2019-02-16] MEDS: Enoxaparin 30 mg Syringe SC SCH (10:43)
--- NOTE | 2019-02-16 12:11 | CP.PCM.PN ---
Subjective - Date & Time of Evaluation Date of Evaluation: 02/16/19 Time of Evaluation: 12:10 - Subjective Subjective: NO FURTHER VOMITING PT. NOT EATING WELL REST IS SAME PER NEURO NO OAC EVEN IF ECHO IS POS FURTHER CARE WILL DEPEND ON OUTCOME PALLIATIVE CARE MEETING Objective - Vital Signs/Intake and Output Vital Signs (last 24 hours): Temp Pulse Resp BP Pulse Ox 98.3 F 94 H 20 126/78 96 02/16/19 07:00 02/16/19 07:00 02/16/19 07:00 02/16/19 07:00 02/16/19 07:00 - Medications Medications: Current Medications Aspirin (Ecotrin) 81 mg PO DAILY [facility] Last Admin: 02/16/19 10:42 Dose: 81 mg Enoxaparin Sodium (Lovenox) 30 mg SC DAILY [facility] Last Admin: 02/16/19 10:43 Dose: 30 mg Levetiracetam 500 mg/ Sodium (Chloride) 105 mls @ 420 mls/hr IVPB BID [facility] Last Admin: 02/16/19 10:42 Dose: 420 mls/hr Ceftriaxone Sodium (Rocephin Iv 1 Gm Duplex) 50 mls @ 50 mls/30 min IVPB Q12H [facility]; Protocol Last Admin: 02/16/19 00:44 Dose: 50 mls/30 min Ondansetron HCl (Zofran Inj) 2 mg IVP Q6H PRN PRN Reason: Nausea/Vomiting Last Admin: 02/15/19 18:11 Dose: 2 mg Rosuvastatin Calcium (Crestor) 10 mg PO HS [facility] Last Admin: 02/15/19 21:56 Dose: Not Given - Labs Labs: 02/15/19 13:55 02/15/19 13:55 PT 15.7 SECONDS (9.7-12.2) H 02/14/19 07:40 INR 1.4 02/14/19 07:40 Assessment and Plan (1) Tumor embolus Status: Acute (2) Dehydration Status: Acute (3) Lung cancer Status: Acute
--- NOTE | 2019-02-16 15:10 | PCM.STROKE ---
Interval History Stroke Date: 02/09/19 - Treatment Antiplatelet: Acetylsalicylic acid (ASA) Statin: Rosuvastatin - Education Written Stroke Education provided regarding: personal risk factors, stroke warning sign/symptoms, how to activate emergency medical services, need to follow up after discharge - Therapy Notes I have reviewed care of the patient with: Dr. Mckeon NIHSS Stroke Scale - Date/Time Evaluation Performed Date Performed: 02/16/19 Time Performed: 15:15 When Was NIHSS Performed: Re-evaluation - How Severe is the Stroke Level of Consciousness: 0=Alert LOC to Questions: 0=Both comments correct LOC to commands: 0=Obeys both correctly Best Gaze: 0=Normal Visual: 0=No visual loss Facial: 0=Normal Motor Arm - Left: 1=Drift noted before 10 sec Motor Arm - Right: 0=No drift Motor Leg - Left: 0=No drift Motor Leg - Right: 0=No drift Limb Ataxia: 0=Absent Sensory: 0=Normal Best Language: 0=No aphasia Dysarthia: 0=Normal articulation Extinction & Inattention (Neglect): 0=Normal, no object Score: 1 Exam - Vital Sign Vital Signs: Temp Pulse Resp BP Pulse Ox 98.3 F 94 H 20 126/78 96 02/16/19 07:00 02/16/19 07:00 02/16/19 07:00 02/16/19 07:00 02/16/19 07:00 Constitutional: No distress, Normal appearing, Other (more alert and conversive compared to yesterday) Ophthalmoscopic: absent: papilledema, hemorrhage Right Pupil: Reactive Right Pupil Size (in mm): 2 Left Pupil: Reactive Left Pupil Size (in mm): 2 Mental Status: Normal: Orientation, Memory, Attention, Language, Fund of Knowledge Cranial Nerve: Normal: Visual Elliott, Extraocular movement intact, Facial Sensa tion, Facial Strength, Hearing, Palate/Tongue Movement, Shoulder Strength Motor: absent: Tone (weakness to LUE) Neuro motor strength exam: Left Upper Extremity: 3, Right Upper Extremity: 5, Left Lower Extremity: 5, Right Lower Extremity: 5 DTR: Patellar Left: 1+, Patellar Right: 1+ Flexor Plantar Reflex: Normal - Data reviewed Laboratory results: 02/15/19 13:55 02/15/19 13:55 Triglycerides 121 mg/dL (0-149) 02/14/19 16:47 Cholesterol 125 mg/dL (0-199) 02/14/19 16:47 LDL Cholesterol Direct 96 mg/dL (0-129) 02/14/19 16:47 HDL Cholesterol 18 mg/dL (30-70) L 02/14/19 16:47 Hemoglobin A1c 5.5 % (4.2-6.5) 02/14/19 16:47 Assessment and Plan (1) CVA (cerebral vascular accident) Assessment & Plan: Imaging reviewed: -Brain MRI (02/10/19): 1. Multifocal acute infarctions in the left frontal cortex, insula, frontal subcortical white matter, parieto-occipital watershed territory, right cardoza radiata and right parietal cortex as well as right parieto-occipital watershed territory and smaller infarctions in right cerebellar hemisphere. The pattern of distribution is a combination of embolic and watershed territory infarctions. 2. Multiple chronic lacunar infarctions as described above. 3. Asymmetric curvilinear enhancement in the right parietal cortex and left frontal cortex could represent subacute infarctions. 4. No definite enhancing lesions suggestive of metastatic disease in the brain. -EEG (02/10/19): This is an abnormal video-EEG monitoring study due to the pr esence of 1-Left temporal intermittent slowing. No interictal activity seen. No seizures. -Echo (02/15/19): large mass in posterior left atrium, taking up more than 50 % of the area. -Discussed with cardio yesterday; AC not recommended in this pt regardless of echo w bubble results. Therefore, no aggressive treatment recommended. -May continue ASA 81 mg PO daily and statin upon d/c home. -Continue PT/OT; home care services and home PT. -Continue Keppra 500 mg PO BID at home. -May f/u as outpatient with neuro within 1 month. F/u with PMD and oncology. -Notify neuro of any acute changes in pt's condition. No further neuro recommendations. Reconsult prn. -Discussed neuro plan with family and pt; all in agreement. Discussed with primary team. Liyah Dean, DNP, [employer] OPERATOR D/W Dr. Mckeon Status: Acute
--- NOTE | 2019-02-16 15:17 | CP.PCM.PN ---
Subjective - Date & Time of Evaluation Date of Evaluation: 02/16/19 Time of Evaluation: 11:00 - Subjective Subjective: Patient examined in bed, looking tired, sleepy, lethargic and easily aroused. No sgnificant changes in patient's condition since yesterday. Remains afebrile. Family meeting held today attended by all 6 children. Objective - Vital Signs/Intake and Output Vital Signs (last 24 hours): Temp Pulse Resp BP Pulse Ox 98.3 F 94 H 20 126/78 96 02/16/19 07:00 02/16/19 07:00 02/16/19 07:00 02/16/19 07:00 02/16/19 07:00 - Medications Medications: Current Medications Aspirin (Ecotrin) 81 mg PO DAILY [facility] Last Admin: 02/16/19 10:42 Dose: 81 mg Enoxaparin Sodium (Lovenox) 30 mg SC DAILY [facility] Last Admin: 02/16/19 10:43 Dose: 30 mg Levetiracetam 500 mg/ Sodium (Chloride) 105 mls @ 420 mls/hr IVPB BID [facility] Last Admin: 02/16/19 10:42 Dose: 420 mls/hr Ceftriaxone Sodium (Rocephin Iv 1 Gm Duplex) 50 mls @ 50 mls/30 min IVPB Q12H [facility]; Protocol Last Admin: 02/16/19 13:15 Dose: 50 mls/30 min Ondansetron HCl (Zofran Inj) 2 mg IVP Q6H PRN PRN Reason: Nausea/Vomiting Last Admin: 02/15/19 18:11 Dose: 2 mg Rosuvastatin Calcium (Crestor) 10 mg PO HS [facility] Last Admin: 02/15/19 21:56 Dose: Not Given - Labs Labs: 02/15/19 13:55 02/15/19 13:55 PT 15.7 SECONDS (9.7-12.2) H 02/14/19 07:40 INR 1.4 02/14/19 07:40 - Constitutional Appears: No Acute Distress, Chronically Ill - Head Exam Head Exam: ATRAUMATIC, NORMAL INSPECTION, NORMOCEPHALIC - Eye Exam Eye Exam: EOMI, Normal appearance, PERRL Pupil Exam: NORMAL ACCOMODATION, PERRL - ENT Exam ENT Exam: Mucous Membranes Dry - Neck Exam Neck Exam: Full ROM, Normal Inspection - Respiratory Exam Respiratory Exam: Decreased Breath Sounds, Rhonchi, NORMAL BREATHING PATTERN - Cardiovascular Exam Cardiovascular Exam: Tachycardia, Irregular Rhythm - GI/Abdominal Exam GI & Abdominal Exam: Soft, Normal Bowel Sounds - Rectal Exam Rectal Exam: Deferred - Extremities Exam Extremities Exam: Pedal Edema - Back Exam Back Exam: NORMAL INSPECTION - Neurological Exam Neurological Exam: Abnormal Gait, Alert, Altered Neuro motor strength exam: Left Upper Extremity: 2/, Right Upper Extremity: 2/, Left Lower Extremity: 2/, Right Lower Extremity: 2/ - Psychiatric Exam Psychiatric exam: Flat Affect - Skin Skin Exam: Dry, Intact, Mottled, Normal Color, Warm Assessment and Plan - Assessment and Plan (Free Text) Assessment: Patient examined in bed, looking chronically ill in no acute distress, lethargic. Patient makes eye contacts, is verbal when aroused. Appetite remains poor. When spoon fed patient has no difficulties swallowing, but needs reinforcement. Family meeting attended by patient's 6 children, [employer] Operator Marianne and myself, away from patient's bed. One of the daughters reported that she met with Doctor Batres last night and was explained that in this condition patient is not a candidate for chemotherapy. I reviewed the content of the yesterday's meeting for the new attendee today and brought up discussion regarding goals of care. It was a long meeting, later attended by patient's sister and her two sons. Family understands that patient's condition was severe and very complex. They are unitedly concerned with patient's comfort and would not want any further aggressive interventions at this time. Comfort care at home discussed. Some of family members were reluctant as they still hope that patient will get stronger and be candidate for chemo. I offered information about VNS what seemed more acceptable for family. Code status discussed. Family understood that if patient's condition gets worse and her heart or lungs stop working, that will mean patient achieved end of life. In that case family would not want CPR or intubation to take place. They wanted patient to be allowed natural . Some of family cried. [employer] Marianne provided Spiritual support. Family feels at ease due to the fact that patient had told them in the past that she would not want " any tubes in her to keep her alive". This made their decision about DNR/DNI easier. Impression * Metastatic disease * Weakness * Poor PO intake * At risk for pressure sore * Incontinent * Family advocates for discharge home with some help from VNS * Family is holding unrealistic hope of recovery * Family agreed on DNR/DNI Suggestion * Assist with ADLs * Assist with feedings, reinforce PO intakes as tolerated * promote skin integrity * Keep patient dry * Turn and reposition Q 2 hr * Discharge home with VNS * DNR/DNI Palliative care will sign off. Advance Care planing 60 min
--- NOTE | 2019-02-16 22:39 | CP.PCM.PN ---
Subjective - Date & Time of Evaluation Date of Evaluation: 02/16/19 Time of Evaluation: 19:00 - Subjective Subjective: Appears fatigued Had family meeting with palliative care and family - DNR/DNI wants to go home with VNA services no OAC noted not a treatment candidate given debility Objective - Vital Signs/Intake and Output Vital Signs (last 24 hours): Temp Pulse Resp BP Pulse Ox 98.8 F 105 H 20 125/83 95 02/16/19 15:00 02/16/19 15:00 02/16/19 15:00 02/16/19 15:00 02/16/19 15:00 - Medications Medications: Current Medications Aspirin (Ecotrin) 81 mg PO DAILY [facility] Last Admin: 02/16/19 10:42 Dose: 81 mg Enoxaparin Sodium (Lovenox) 30 mg SC DAILY [facility] Last Admin: 02/16/19 10:43 Dose: 30 mg Levetiracetam 500 mg/ Sodium (Chloride) 105 mls @ 420 mls/hr IVPB BID [facility] Last Admin: 02/16/19 18:02 Dose: 420 mls/hr Ceftriaxone Sodium (Rocephin Iv 1 Gm Duplex) 50 mls @ 50 mls/30 min IVPB Q12H [facility]; Protocol Last Admin: 02/16/19 13:15 Dose: 50 mls/30 min Ondansetron HCl (Zofran Inj) 2 mg IVP Q6H PRN PRN Reason: Nausea/Vomiting Last Admin: 02/15/19 18:11 Dose: 2 mg Rosuvastatin Calcium (Crestor) 10 mg PO HS [facility] Last Admin: 02/15/19 21:56 Dose: Not Given - Labs Labs: 02/15/19 13:55 02/15/19 13:55 PT 15.7 SECONDS (9.7-12.2) H 02/14/19 07:40 INR 1.4 02/14/19 07:40 - Constitutional Appears: Cachectic - Head Exam Head Exam: ATRAUMATIC - ENT Exam ENT Exam: Mucous Membranes Dry - Respiratory Exam Respiratory Exam: NORMAL BREATHING PATTERN - Cardiovascular Exam Cardiovascular Exam: +S1, +S2 - GI/Abdominal Exam GI & Abdominal Exam: Normal Bowel Sounds Assessment and Plan (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
[2019-02-17 08:04] VITALS: RESP 20
[2019-02-17] MEDS: Enoxaparin 30 mg Syringe SC SCH (10:46)
[2019-02-17] MEDS: levETIRAcetam 500 MG in Sodium Chloride 0.9% 100 ML IVPB SCH ×2 (10:46→18:19)
--- NOTE | 2019-02-17 12:04 | CP.PCM.PN ---
Subjective - Date & Time of Evaluation Date of Evaluation: 02/17/19 Time of Evaluation: 12:03 - Subjective Subjective: YESTERDAY'S EVENT NOTED WILL START DISCHARGE PLANNING FOR HOME CARE NO OAC Objective - Vital Signs/Intake and Output Vital Signs (last 24 hours): Temp Pulse Resp BP Pulse Ox 98.4 F 71 20 127/81 96 02/17/19 08:00 02/17/19 08:00 02/17/19 08:00 02/17/19 08:00 02/17/19 08:00 - Medications Medications: Current Medications Aspirin (Ecotrin) 81 mg PO DAILY [facility] Last Admin: 02/17/19 10:46 Dose: 81 mg Levetiracetam 500 mg/ Sodium (Chloride) 105 mls @ 420 mls/hr IVPB BID [facility] Last Admin: 02/17/19 10:46 Dose: 420 mls/hr Ceftriaxone Sodium (Rocephin Iv 1 Gm Duplex) 50 mls @ 50 mls/30 min IVPB Q12H [facility]; Protocol Last Admin: 02/16/19 23:48 Dose: 50 mls/30 min Ondansetron HCl (Zofran Inj) 2 mg IVP Q6H PRN PRN Reason: Nausea/Vomiting Last Admin: 02/15/19 18:11 Dose: 2 mg Rosuvastatin Calcium (Crestor) 10 mg PO HS [facility] Last Admin: 02/16/19 22:41 Dose: 10 mg - Labs Labs: 02/15/19 13:55 02/15/19 13:55 PT 15.7 SECONDS (9.7-12.2) H 02/14/19 07:40 INR 1.4 02/14/19 07:40 Assessment and Plan (1) Tumor embolus Status: Acute (2) Dehydration Status: Acute (3) Lung cancer Status: Acute
[2019-02-17] MEDS: cefTRIAXone IV 1 gm in Dextros 50 ML IVPB SCH (12:36)
[2019-02-18] MEDS: cefTRIAXone IV 1 gm in Dextros 50 ML IVPB SCH
[2019-02-18] MEDS: levETIRAcetam 500 MG in Sodium Chloride 0.9% 100 ML IVPB SCH ×2 (11:11→17:01)
--- NOTE | 2019-02-18 11:21 | CP.PCM.PN ---
Subjective - Date & Time of Evaluation Date of Evaluation: 02/18/19 Time of Evaluation: 11:20 - Subjective Subjective: PT FOR HOME CARE D/W DISCHARGE PLANNING Objective - Vital Signs/Intake and Output Vital Signs (last 24 hours): Temp Pulse Resp BP Pulse Ox 97.9 F 94 H 20 129/80 97 02/18/19 07:20 02/18/19 07:20 02/18/19 07:20 02/18/19 07:20 02/18/19 07:20 Intake and Output: 02/17/19 02/18/19 23:59 11:59 Intake Total 550 50 Balance 550 50 - Medications Medications: Current Medications Aspirin (Ecotrin) 81 mg PO DAILY [facility] Last Admin: 02/18/19 11:11 Dose: 81 mg Levetiracetam 500 mg/ Sodium (Chloride) 105 mls @ 420 mls/hr IVPB BID [facility] Last Admin: 02/18/19 11:11 Dose: 420 mls/hr Ondansetron HCl (Zofran Inj) 2 mg IVP Q6H PRN PRN Reason: Nausea/Vomiting Last Admin: 02/15/19 18:11 Dose: 2 mg Rosuvastatin Calcium (Crestor) 10 mg PO HS [facility] Last Admin: 02/17/19 22:40 Dose: 10 mg - Labs Labs: 02/15/19 13:55 02/15/19 13:55 PT 15.7 SECONDS (9.7-12.2) H 02/14/19 07:40 INR 1.4 02/14/19 07:40 Assessment and Plan (1) Tumor embolus Status: Acute (2) Dehydration Status: Acute (3) Lung cancer Status: Acute
--- NOTE | 2019-02-18 14:13 | CP.PCM.PN ---
Subjective - Date & Time of Evaluation Date of Evaluation: 02/18/19 Time of Evaluation: 14:13 - Subjective Subjective: PATIENT Objective - Vital Signs/Intake and Output Vital Signs (last 24 hours): Temp Pulse Resp BP Pulse Ox 97.9 F 94 H 20 129/80 97 02/18/19 07:20 02/18/19 07:20 02/18/19 07:20 02/18/19 07:20 02/18/19 07:20 Intake and Output: 02/18/19 02/18/19 06:59 18:59 Intake Total 50 Balance 50 - Medications Medications: Current Medications Aspirin (Ecotrin) 81 mg PO DAILY [facility] Last Admin: 02/18/19 11:11 Dose: 81 mg Levetiracetam 500 mg/ Sodium (Chloride) 105 mls @ 420 mls/hr IVPB BID [facility] Last Admin: 02/18/19 11:11 Dose: 420 mls/hr Ondansetron HCl (Zofran Inj) 2 mg IVP Q6H PRN PRN Reason: Nausea/Vomiting Last Admin: 02/15/19 18:11 Dose: 2 mg Rosuvastatin Calcium (Crestor) 10 mg PO HS [facility] Last Admin: 02/17/19 22:40 Dose: 10 mg - Labs Labs: 02/15/19 13:55 02/15/19 13:55 PT 15.7 SECONDS (9.7-12.2) H 02/14/19 07:40 INR 1.4 02/14/19 07:40 Assessment and Plan - Assessment and Plan (Free Text) Assessment: FOLLOW UP WITH PMD OR DR TOBIAS IN HIS OFFICE ------CALL FOR APPOINTMENT CONTINUE MEDICATION NEW PRESCRIPTION GIVEN ASPIRIN 81 MG PO DAILY KEPPRA 500 MG PO BID CRESTOR 20 MG PO DAILY HOME HOSPICE CALL DR TOIBAS OR GO TO THE EMERGENCY ROOM IF SYMPTOM RETURN OR WORSENING
[2019-02-18 17:29] VITALS: BP 135/80; PULSE 97; TEMP 99; O2SAT 96
--- NOTE | 2019-02-20 13:13 | CP.PCM.DIS ---
Provider - Provider Date of Admission: 02/12/19 09:54 Attending physician: Ansley Theodore MD Consults: 02/10/19 12:03 Neurology Consult Routine Comment: Consulting Provider: Jonathon Mckeon Consulting Physician: Jonathon Mckeon Reason for Consult: Multiple acute infarcts 02/10/19 12:37 Hematology Oncology Consult Routine Comment: Consulting Provider: Jose Batres Consulting Physician: Jose Batres Reason for Consult: METASTATIC LUNG CANCER 02/10/19 19:06 Cardiology Consult Routine Comment: Consulting Provider: Grady Mock Consulting Physician: Grady Mock Reason for Consult: possible YISEL 02/11/19 10:28 Palliative Care Consult Routine Comment: Consulting Provider: Barbara Nye Physician Instructions: Reason For Exam: lung ca 02/17/19 12:05 Discharge Planning [Case Management Referral] Routine Comment: Physician Instructions: PT WANTS HOME CARE AND START D/C PLANNING Reason For Exam: Reason for Referral: Discharge Planning Time Spent in preparation of Discharge (in minutes): 35 Diagnosis - Discharge Diagnosis (1) Tumor embolus Status: Acute (2) Dehydration Status: Acute (3) Lung cancer Status: Acute Hospital Course - Lab Results Lab Results: Micro Results 02/10/19 00:30 Blood-Venous Blood Culture - Final NO GROWTH AFTER 5 DAYS 02/10/19 00:30 Blood-Venous Gram Stain - Final TEST NOT PERFORMED 02/10/19 00:00 Blood-Venous Blood Culture - Final NO GROWTH AFTER 5 DAYS 02/10/19 00:00 Blood-Venous Gram Stain - Final TEST NOT PERFORMED Most Recent Lab Values WBC 13.9 K/uL (4.8-10.8) H 02/15/19 13:55 RBC 3.19 Mil/uL (3.80-5.20) L 02/15/19 13:55 Hgb 8.2 g/dL (11.0-16.0) L 02/15/19 13:55 Hct 25.3 % (34.0-47.0) L 02/15/19 13:55 MCV 79.4 fL (81.0-99.0) L 02/15/19 13:55 MCH 25.8 pg (27.0-31.0) L 02/15/19 13:55 MCHC 32.6 g/dL (33.0-37.0) L 02/15/19 13:55 RDW 20.2 % (11.5-14.5) H 02/15/19 13:55 Plt Count 226 K/uL (130-400) 02/15/19 13:55 MPV 7.3 fL (7.2-11.7) 02/15/19 13:55 Neut % (Auto) 73.4 % (50.0-75.0) 02/15/19 13:55 Lymph % (Auto) 10.9 % (20.0-40.0) L 02/15/19 13:55 [place] % (Auto) 10.8 % (0.0-10.0) H 02/15/19 13:55 Eos % (Auto) 3.9 % (0.0-4.0) 02/15/19 13:55 Baso % (Auto) 1.0 % (0.0-2.0) 02/15/19 13:55 Neut # (Auto) 10.2 K/uL (1.8-7.0) H 02/15/19 13:55 Lymph # (Auto) 1.5 K/uL (1.0-4.3) 02/15/19 13:55 [place] # (Auto) 1.5 K/uL (0.0-0.8) H 02/15/19 13:55 Eos # (Auto) 0.5 K/uL (0.0-0.7) 02/15/19 13:55 Baso # (Auto) 0.1 K/uL (0.0-0.2) 02/15/19 13:55 Neutrophils % (Manual) 58 % (50-75) 02/09/19 22:57 Band Neutrophils % 13 % (0-2) H* 02/09/19 22:57 Lymphocytes % (Manual) 8 % (20-40) L 02/09/19 22:57 Monocytes % (Manual) 12 % (0-10) H 02/09/19 22:57 Eosinophils % (Manual) 9 % (0-4) H 02/09/19 22:57 Platelet Estimate Normal (NORMAL) 02/09/19 22:57 Large Platelets Present 02/09/19 22:57 Hypochromasia (manual) Slight 02/09/19 22:57 Microcytosis (manual) Slight 02/09/19 22:57 Ovalocytes Slight 02/09/19 22:57 [place] Cells Slight 02/09/19 22:57 PT 15.7 SECONDS (9.7-12.2) H 02/14/19 07:40 INR 1.4 02/14/19 07:40 Sodium 140 mmol/L (132-148) 02/15/19 13:55 Potassium 3.4 mmol/L (3.6-5.2) L 02/15/19 13:55 Chloride 117 mmol/L (98-107) H 02/15/19 13:55 Carbon Dioxide 17 mmol/L (22-30) L 02/15/19 13:55 Anion Gap 10 (10-20) 02/15/19 13:55 BUN 8 mg/dL (7-17) 02/15/19 13:55 Creatinine 0.8 mg/dL (0.7-1.2) 02/15/19 13:55 Est GFR ( Amer) > 60 02/15/19 13:55 Est GFR (Non-Af Amer) > 60 02/15/19 13:55 POC Glucose (mg/dL) 118 mg/dL (65-110) H 02/12/19 06:16 Random Glucose 103 mg/dL (65-105) 02/15/19 13:55 Hemoglobin A1c 5.5 % (4.2-6.5) 02/14/19 16:47 Calcium 7.9 mg/dl (8.6-10.4) L 02/15/19 13:55 Magnesium 2.0 mg/dL (1.6-2.3) 02/09/19 22:57 Total Bilirubin 0.3 mg/dL (0.2-1.3) 02/15/19 13:55 AST 15 U/L (14-36) 02/15/19 13:55 ALT 19 U/L (9-52) 02/15/19 13:55 Alkaline Phosphatase 75 U/L (38-126) 02/15/19 13:55 Total Protein 5.0 g/dL (6.3-8.3) L 02/15/19 13:55 Albumin 2.1 g/dL (3.5-5.0) L 02/15/19 13:55 Globulin 2.9 gm/dL (2.2-3.9) 02/15/19 13:55 Albumin/Globulin Ratio 0.7 (1.0-2.1) L 02/15/19 13:55 Triglycerides 121 mg/dL (0-149) 02/14/19 16:47 Cholesterol 125 mg/dL (0-199) 02/14/19 16:47 LDL Cholesterol Direct 96 mg/dL (0-129) 02/14/19 16:47 HDL Cholesterol 18 mg/dL (30-70) L 02/14/19 16:47 - Hospital Course Hospital Course: 58 year old female recently diagnosed 3 weeks ago with adenocarcinoma lung with brain metastasis. She was discharged on 02/02. Patient was started on brain radiation several days ago. Patient is brought tonight by family for evaluation. Patient's family report patient has been getting progressively weaker, refusing to eat or drink, not speaking and not following commands. Patient's daughter reports yesterday patient became incontinent of urine and stool. PT WAS SCEDUALED FOR OUT PT YISEL FOR MASS IN [place] NO ANTICOAGULATION GIVEN DUE TO MULTIPLE METS IN BRAIN MRI DONE SHOWS SCATTERED INFARCT BOTH HEMISPHERE COULD BE TUMOR EMBOLI YISEL WAS NOT DONE DUE TO POOR PHYSICAL CONDITION EEG WAS NORMAL NO ANTICOAGULATION WAS GIVEN DUE TO RISK OF INTRACEREBRAL BLEED AFTER D/W FAMILY , THEY AGREED TO TAKE PT HOME ON HOSPICE CARE Discharge Exam - Head Exam Head Exam: ATRAUMATIC Discharge Plan - Discharge Medications Prescriptions: Rosuvastatin Calcium [Crestor] 10 mg PO HS 30 Days tab Aspirin [Ecotrin] 81 mg PO DAILY 30 Days tabec levETIRAcetam [Keppra] 500 mg PO BID 30 Days tab - Follow Up Plan Condition: FAIR Disposition: HOME/ ROUTINE Instructions: Stroke (DC), Lung Cancer (DC), Levetiracetam, Weakness (ED) Additional Instructions: FOLLOW UP WITH PMD OR DR THEODORE IN HIS OFFICE ------CALL FOR APPOINTMENT CONTINUE MEDICATION NEW PRESCRIPTION GIVEN ASPIRIN 81 MG PO DAILY KEPPRA 500 MG PO BID CRESTOR 20 MG PO DAILY HOME HOSPICE CALL DR THEODORE OR GO TO THE EMERGENCY ROOM IF SYMPTOM RETURN OR WORSENING Referrals: Jose Batres MD [Staff Provider] - Grady Mock MD [Staff Provider] - Jonathon Mckeon MD [Staff Provider] - Ansley Theodore MD [Staff Provider] -
== END 2019-02-18 17:45 | disposition home or self-care (01) | DRG 14 ==
LOC: C.ER 21:58 → C.9E 23:28 → C.5S 02-10 00:16 → OBSVTOIN 02-12 09:54
PROVIDERS: ADMIT Internal Medicine Cardiovascular Disease; ATTEND Internal Medicine Cardiovascular Disease
DX: I63.40 Cerebral infarction due to embolism of unspecified cerebral artery (principal); E86.0 Dehydration; C34.90 Malignant neoplasm of unspecified part of unspecified bronchus or lung; C79.31 Secondary malignant neoplasm of brain; C78.7 Secondary malignant neoplasm of liver and intrahepatic bile duct; E11.22 Type 2 diabetes mellitus with diabetic chronic kidney disease; N18.9 Chronic kidney disease, unspecified; R32 Unspecified urinary incontinence; R56.9 Unspecified convulsions; Z51.5 Encounter for palliative care; G93.40 Encephalopathy, unspecified; Z74.01 Bed confinement status; R15.9 Full incontinence of feces; R47.01 Aphasia; Z66 Do not resuscitate; F17.200 Nicotine dependence, unspecified, uncomplicated; D63.0 Anemia in neoplastic disease; D72.829 Elevated white blood cell count, unspecified